=== PATIENT | female | born 1955 | race Caucasian/White ===

== ENCOUNTER 2020-10-30 09:37 | Outpatient (REF) | payer MEDICARE, OTHER, SELFPAY ==
[2020-10-30 12:06] LABS: Glucose Urine UA NEG (NEG); Leukocyte Esterase Urine TRACE (NEG); Nitrite Urine NEG (NEG); Specific Gravity - Urine <= 1.005 (1.005-1.025); Urine Blood TRACE (NEG); Urine Ketones NEG (NEG); Urine Protein NEG (NEG-TRACE)
[2020-10-30 12:08] LABS: Appearance Urine CLEAR; Color Urine YELLOW
[2020-10-30 12:21] LABS: Mucus Urine TRACE /LPF; RBC Urine 0-2 /HPF (0); Squamous Epithelial Cell Urine TRACE /LPF; WBC Urine 0-2 /HPF (0-4)
[2020-10-30 12:25] LABS: Hematocrit 40.5 % (37-47); Hemoglobin 13.5 g/dl (12.0-16.0); Mean Corpuscular HGB Conc 33.3 g/dl (31.0-35.0); Mean Corpuscular Hemoglobin 31.5 pg (27.0-33.0); Mean Corpuscular Volume 94.6 fL (80-98); Mean Platelet Volume 10.7 fL (9.4-12.3); Platelet Count 221 X10*3/uL (160-400); Red Blood Count 4.28 X10*6/uL (4.20-5.50); Red Cell Distribution Width 11.9 % (11.0-16.0); White Blood Count 7.7 X10*3/uL (4.8-10.8)
[2020-10-30 12:27] LABS: Alanine Aminotransferase 14 U/L (0-31); Albumin Level 4.3 g/dL (3.5-5.0); Alkaline Phosphatase 66 U/L (39-117); Anion Gap 14 (12-20); Aspartate Amino Transferase 19 U/L (5-31); Bilirubin Total 0.8 mg/dL (0.0-1.0); Blood Urea Nitrogen 23 mg/dL (9-16); Calcium 8.9 mg/dL (8.4-10.2); Carbon Dioxide 27 mmol/L (22-29); Chloride 97 mmol/L (96-108); Cholesterol 236 mg/dL; Estimated Glomerular Filt Rate 47; Glucose Fasting 95 mg/dL (60-99); HDL Cholesterol 65 mg/dL; LDL Cholesterol Calculated 152 mg/dl; Potassium 3.9 mmol/l (3.3-5.1); Sodium 134 mmol/L (135-145); Total Protein 7.1 g/dL (6.5-8.0); Triglycerides 98 mg/dL
[2020-10-30 12:49] LABS: Thyroid Stimulating Hormone 3.09 uIU/mL (0.32-4.0)
== END 2020-10-30 09:38 | disposition home or self-care (01) ==
LOC: HO.HMGCLDS 09:37
PROVIDERS: PCP Internal Medicine; Visit Provider Internal Medicine
DX: M79.672 Pain in left foot (principal)
CPT/HCPCS: 36415; 80053; 80061; 81001; 81003; 84443; 85027

== ENCOUNTER 2021-02-28 12:57 | Outpatient (REF) | payer MEDICARE, OTHER, SELFPAY ==
--- NOTE | ~2021-02-28 | US_ITS ---
EXAMINATION: US EXTRACRANIAL CAROTID DUPLEX, BILATERAL CLINICAL INFORMATION: Dizziness COMPARISON: None TECHNIQUE: Real-time ultrasound and Doppler techniques (integrating B-mode 2-D vascular images, Doppler spectral analysis and color-flow Doppler imaging) were utilized to interrogate the extracranial carotid arteries, the vertebral arteries and proximal subclavian arteries bilaterally. The degree of stenosis is determined by criteria similar to NASCET. FINDINGS: Right Side: 1. There is minimal calcified atherosclerotic plaque seen in the bifurcation/proximal ICA region. 2. The common carotid artery PSV proximally is 99 cm/s and distally 89 cm/s. 3. The proximal internal carotid artery velocities are 68 cm/s systolic and 21 cm/s diastolic. 4. The proximal external carotid artery PSV is 87 cm/s. 5. The vertebral artery shows antegrade flow. 6. The subclavian artery waveforms are normal. Left Side: 1. There is minimal atherosclerotic plaque seen in the bifurcation/proximal ICA region. 2. The common carotid artery PSV proximally is 86 cm/s and distally 82 cm/s. 3. The proximal internal carotid artery velocities are 64 cm/s systolic and 19 cm/s diastolic. 4. The proximal external carotid artery PSV is 91 cm/s. 5. The vertebral artery shows antegrade flow. 6. The subclavian artery waveforms are normal. US/US carotid duplex BI IMPRESSION: 1. RIGHT: Minimal, non-hemodynamically significant stenosis of the proximal right internal carotid artery corresponding to a 0-49% stenosis by velocity criteria. 2. LEFT: Minimal, non-hemodynamically significant stenosis of the proximal left internal carotid artery corresponding to a 0-49% stenosis by velocity criteria.
== END 2021-02-28 12:58 | disposition home or self-care (01) ==
LOC: HO.HMGCX 12:57
PROVIDERS: Visit Provider Internal Medicine
DX: R09.89 Other specified symptoms and signs involving the circulatory and respiratory systems (principal); R42 Dizziness and giddiness
CPT/HCPCS: 93880

== ENCOUNTER 2022-03-04 10:30 | Outpatient (REF) | payer MEDICARE, OTHER, SELFPAY ==
[2022-03-04 11:41] LABS: Hematocrit 42.8 % (37.0-47.0); Hemoglobin 13.8 g/dl (12.0-16.0); Mean Corpuscular HGB Conc 32.2 g/dl (31.0-35.0); Mean Corpuscular Hemoglobin 30.9 pg (27.0-33.0); Mean Corpuscular Volume 95.7 fL (80.0-98.0); Mean Platelet Volume 10.6 fL (9.4-12.3); Platelet Count 229 X10*3/uL (160-400); Red Blood Count 4.47 X10*6/uL (4.20-5.50); White Blood Count 7.1 X10*3/uL (4.8-10.8)
[2022-03-04 12:11] LABS: Alanine Aminotransferase 14 U/L (0-31); Albumin Level 4.2 g/dL (3.5-5.0); Alkaline Phosphatase 67 U/L (39-117); Anion Gap 11 (12-20); Aspartate Amino Transferase 20 U/L (5-31); Bilirubin Total 0.6 mg/dL (0.0-1.0); Blood Urea Nitrogen 18 mg/dL (9-16); Calcium 9.4 mg/dL (8.4-10.2); Carbon Dioxide 29 mmol/L (22-29); Chloride 106 mmol/L (96-108); Cholesterol 201 mg/dL; Estimated Glomerular Filt Rate 41; Glucose Fasting 108 mg/dL (60-99); HDL Cholesterol 56 mg/dL; LDL Cholesterol Calculated 126 mg/dl; Potassium 4.2 mmol/L (3.3-5.1); Sodium 142 mmol/L (135-145); Total Protein 6.7 g/dL (6.5-8.0); Triglycerides 97 mg/dL
[2022-03-04 12:20] LABS: TSH reflex Free T4 2.07 uIU/mL (0.32-4.0); Vitamin D 25-OH Total 43.7 ng/mL (>30)
[2022-03-04 14:07] LABS: Appearance Urine HAZY; Color Urine YELLOW; Glucose Urine UA NEG (NEG); Leukocyte Esterase Urine 1+ (NEG); Nitrite Urine NEG (NEG); PH 5.5 (5.0-8.0); Specific Gravity - Urine 1.025 (1.005-1.025); Urine Blood 3+ (NEG); Urine Ketones NEG (NEG); Urine Protein NEG (NEG-TRACE)
[2022-03-04 14:26] LABS: Amorphous Sediment Urine 2+ /LPF; Bacteria Urine 1+ /LPF; Mucus Urine 1+ /LPF; Squamous Epithelial Cell Urine 3+ /LPF
== END 2022-03-04 10:31 | disposition home or self-care (01) ==
LOC: HO.HMGCLDS 10:30
PROVIDERS: PCP Internal Medicine; Visit Provider Internal Medicine
DX: Z13.89 Encounter for screening for other disorder (principal)
CPT/HCPCS: 36415; 80048; 80053; 80061; 81001; 82306; 84443; 85027

== ENCOUNTER 2022-03-04 11:47 | Outpatient (REF) | payer MEDICARE, OTHER, SELFPAY ==
[2022-03-06 17:01] LABS: HPV mRNA E6/E7 Not Detected (Not Detected)
== END 2022-03-04 11:48 | disposition home or self-care (01) ==
LOC: HO.LAB 11:47
PROVIDERS: Visit Provider Internal Medicine
DX: Z00.00 Encounter for general adult medical examination without abnormal findings (principal); Z12.4 Encounter for screening for malignant neoplasm of cervix; Z11.51 Encounter for screening for human papillomavirus (HPV); I10 Essential (primary) hypertension; E55.9 Vitamin D deficiency, unspecified; E53.8 Deficiency of other specified B group vitamins
CPT/HCPCS: 36415; 80048; 80053; 80061; 81001; 82306; 84443; 85027; 87624; 88142

== ENCOUNTER 2022-03-18 12:26 | Outpatient (REF) | payer MEDICARE, OTHER, SELFPAY ==
[2022-03-18 16:56] LABS: Appearance Urine CLEAR; Color Urine YELLOW; Glucose Urine UA NEG (NEG); Leukocyte Esterase Urine 1+ (NEG); Nitrite Urine NEG (NEG); Specific Gravity - Urine <= 1.005 (1.005-1.025); UACC Culture Trigger YES; Urine Blood NEG (NEG); Urine Ketones NEG (NEG); Urine Protein NEG (NEG-TRACE)
[2022-03-18 17:43] LABS: Bacteria Urine TRACE /LPF; RBC Urine 0-2 /HPF (0); Squamous Epithelial Cell Urine TRACE /LPF; WBC Urine 0-2 /HPF (0-4)
== END 2022-03-18 12:27 | disposition home or self-care (01) ==
LOC: HO.HMGCLDS 12:26
PROVIDERS: PCP Internal Medicine; Visit Provider Internal Medicine
DX: E53.8 Deficiency of other specified B group vitamins (principal); E55.9 Vitamin D deficiency, unspecified; I10 Essential (primary) hypertension
CPT/HCPCS: 81001; 87086

== ENCOUNTER 2022-04-08 09:41 | Outpatient (REF) | payer MEDICARE, OTHER, SELFPAY ==
--- NOTE | ~2022-04-08 | MM_ITS ---
EXAMINATION: BONE DENSITOMETRY CLINICAL INDICATION: Deficiency of other specified B vitamins. COMPARISON: Baseline BD dated 09/30/2018. TECHNIQUE: Using a [employer] Interactive DXA System (software version: 13.1) manufactured by [employer], dual-energy x-ray absorptiometry was performed of the lumbar spine and left hip. The images are of good technical quality. Summary results are attached. FINDINGS: AP SPINE L1-L4: Current: BMD 0.895 g/cm2, Z-score -0.5, T-score -2.4, osteopenia, 0.4% increase from baseline (<5% change is not significant). Baseline: BMD 0.891 g/cm2. LEFT FEMUR, NECK: Current: BMD 0.626 g/cm2, Z-score -1.3, T-score -3.0, osteoporosis. Baseline: BMD 0.626 g/cm2. LEFT FEMUR, TOTAL: Current: BMD 0.693 g/cm2, Z-score -1.0, T-score -2.5, osteoporosis, 1.6% decrease from baseline (<5% change is not significant). Baseline: BMD 0.704 g/cm2. IDENTIFIED RISK FACTORS: Menopause, height loss, osteoporosis. HISTORY OF FRACTURE: None listed. MEDICATIONS: Vitamin D. MM/XR DEXA axial skeleton IMPRESSION: 1. DIAGNOSIS: Osteoporosis based on the lowest T-score value of -3.0 in the femoral neck applying World Health Organization criteria. 2. 10-YEAR FRACTURE RISK PREDICTION, FRAX: According to the guidelines, FRAX calculation should only be performed on patients in the osteopenia bone density category. Therefore, FRAX was not performed on this patient. 3. Treatment Recommendations: NOF guidelines recommend consideration for treatment in postmenopausal women and men age 50 and older presenting with the following: -A hip or vertebral (clinical or morphometric) fracture. -T-score less than or equal to -2.5 at the femoral neck or spine after appropriate evaluation to exclude secondary causes. -Low bone mass at the hip or spine and a 10-year fracture probability by FRAX of greater than or equal to 3% for hip fracture or greater than or equal to 20% for major osteoporotic fracture based on the [place] adapted WHO algorithm. 4. Other Recommendations: All treatment decisions require clinical judgment and consideration of individual patient factors, including patient preferences, comorbidities, previous drug use, risk factors not captured in the FRAX model (e.g. frailty, falls, vitamin D deficiency, increased bone turnover, interval significant decline in bone density) and possible under or overestimation of fracture risk by FRAX. Additional medical evaluation for secondary cause of low bone mineral density may be appropriate. FUTURE SCAN RECOMMENDATION: People with diagnosed cases of osteoporosis or at high risk for fracture should have regular bone mineral density tests. For patients eligible for Medicare, routine testing is allowed once every 2 years. The testing frequency can be increased to one year for patients who have rapidly progressing disease, those who are receiving or discontinuing medical therapy to restore bone mass, or have additional risk factors.
== END 2022-04-08 09:42 | disposition home or self-care (01) ==
LOC: HO.MAMMO 09:41
PROVIDERS: PCP Internal Medicine; Visit Provider Internal Medicine
DX: Z13.820 Encounter for screening for osteoporosis (principal); M81.0 Age-related osteoporosis without current pathological fracture; Z78.0 Asymptomatic menopausal state
CPT/HCPCS: 77080

== ENCOUNTER 2022-04-21 12:05 | Outpatient (REF) | payer MEDICARE, OTHER, SELFPAY ==
[2022-04-21 13:56] LABS: Appearance Urine CLOUDY; Color Urine YELLOW; Glucose Urine UA NEG (NEG); Leukocyte Esterase Urine NEG (NEG); Nitrite Urine NEG (NEG); PH 5.5 (5.0-8.0); Specific Gravity - Urine >= 1.030 (1.005-1.025); Urine Blood NEG (NEG); Urine Ketones NEG (NEG); Urine Protein NEG (NEG-TRACE)
[2022-04-21 14:31] LABS: Vitamin B12 429 pg/mL (200-900)
== END 2022-04-21 12:06 | disposition home or self-care (01) ==
LOC: HO.HMGCLDS 12:05
PROVIDERS: PCP Internal Medicine; Visit Provider Internal Medicine
DX: Z00.00 Encounter for general adult medical examination without abnormal findings (principal); R31.29 Other microscopic hematuria
CPT/HCPCS: 36415; 81003; 82607

== ENCOUNTER 2022-04-25 09:22 | Outpatient (REF) | payer MEDICARE, OTHER, SELFPAY ==
--- NOTE | ~2022-04-25 | CT_ITS ---
EXAMINATION: CT HEAD WITHOUT CONTRAST CLINICAL INFORMATION: Migraine. COMPARISON: None TECHNIQUE: Contiguous axial imaging was performed from the skull base to vertex without intravenous administration of contrast. This CT examination was performed using dose optimization techniques as appropriate, variously including the following: *Automated exposure control *Adjustment of mA and/or kV according to patient size (this includes techniques or standardized protocols for targeted exams where dose is matched to indication/reason for exam; i.e. extremities or head) *Use of iterative reconstruction technique DLP: 632 mGy-cm FINDINGS: There is no evidence of acute intracranial hemorrhage or territorial infarction. No abnormal mass effect or midline shift is seen. Yoder to white matter differentiation is well preserved. No extra-axial fluid collections are identified. The ventricles are normal in size. There is no abnormal attenuation within the brain parenchyma. The osseous structures and soft tissues are normal. The mastoid air cells and visualized portions of the paranasal sinuses are well aerated. CT/CT head/brain wo con IMPRESSION: No acute intracranial process seen.
== END 2022-04-25 09:23 | disposition home or self-care (01) ==
LOC: HO.CT 09:22
PROVIDERS: Visit Provider Internal Medicine
DX: G43.909 Migraine, unspecified, not intractable, without status migrainosus (principal)
CPT/HCPCS: 70450

== ENCOUNTER 2022-08-07 13:23 | Outpatient (REF) | payer MEDICARE, OTHER, SELFPAY ==
[2022-08-07 17:05] LABS: Anion Gap 15 (12-20); Blood Urea Nitrogen 20 mg/dL (9-16); Carbon Dioxide 29 mmol/L (22-29); Chloride 102 mmol/L (96-108); Estimated Glomerular Filt Rate 44; Glucose Random 107 mg/dL (60-115); Sodium 142 mmol/L (135-145)
[2022-08-07 17:22] LABS: Vitamin D 25-OH Total 72.8 ng/mL (>30)
== END 2022-08-07 13:24 | disposition home or self-care (01) ==
LOC: HO.HMGCLDS 13:23
PROVIDERS: PCP Internal Medicine; Visit Provider Internal Medicine
DX: N18.30 Chronic kidney disease, stage 3 unspecified (principal); E55.9 Vitamin D deficiency, unspecified
CPT/HCPCS: 36415; 80048; 82306

== ENCOUNTER 2022-10-25 13:12 | Outpatient (REF) | payer MEDICARE, SELFPAY ==
[2022-10-25 13:24] LABS: Appearance Urine Clear; Color Urine Yellow; Glucose Urine UA Negative (Negative); Leukocyte Esterase Urine Negative (Negative); Nitrite Urine Negative (Negative); PH 5.5 (5.0-9.0); Specific Gravity - Urine <= 1.005 (1.005-1.025); Urine Blood Negative (Negative); Urine Ketones Negative (Negative); Urine Protein Negative (Neg-Trace)
[2022-10-25 14:15] LABS: Influenza A PCR NEGATIVE (Negative); Influenza B PCR NEGATIVE (Negative); Resp Syncy Virus RNA Qual PCR NEGATIVE (Negative); SARS COV2 PCR INHOUSE NEGATIVE (Negative)
== END 2022-10-25 13:13 | disposition home or self-care (01) ==
LOC: HO.LNP 13:12
PROVIDERS: Visit Provider Physician Assistant Medical
DX: R30.0 Dysuria (principal); R05.9 Cough, unspecified; Z20.822 Contact with and (suspected) exposure to COVID-19
CPT/HCPCS: 0241U; 81003

== ENCOUNTER 2023-01-15 13:57 | Outpatient (REF) | payer MEDICARE, OTHER, SELFPAY | END 2023-01-15 13:58 | disposition home or self-care (01) | LOC: HO.LNP 13:57 | PROVIDERS: Visit Provider Internal Medicine | DX: N30.90 Cystitis, unspecified without hematuria (principal) | CPT/HCPCS: 87086; 87088; 87186 ==

== ENCOUNTER 2023-03-03 08:08 | Outpatient (REF) | payer MEDICARE, OTHER, SELFPAY ==
[2023-03-03 11:30] LABS: MANUAL DIFF FLAG NO
[2023-03-03 11:58] LABS: Basophils Percent Auto 0.9 % (0-2); Eosinophils Absolute Auto 0.2 X10*3/uL (0.0-0.4); Eosinophils Percent Auto 4.4 % (0-4); Hematocrit 40.3 % (37.0-47.0); Hemoglobin 13.3 g/dl (12.0-16.0); Imm Gran Abs Auto 0.01 X10*3/uL (0.00-0.03); Imm Gran Pct Auto 0.2 % (0.0-0.4); Lymphocytes Absolute Auto 1.5 X10*3/uL (1.2-4.9); Lymphocytes Percent Auto 32.5 % (20-40); Mean Corpuscular Volume 93.9 fL (80.0-98.0); Mean Platelet Volume 11.2 fL (9.4-12.3); Monocytes Absolute Auto 0.6 X10*3/uL (0.1-1.2); Monocytes Percent Auto 12.4 % (2-11); Neutrophils Absolute Auto 2.3 x10*3/uL (2.0-8.3); Neutrophils Percent Auto 49.6 % (45-73); Platelet Count 218 X10*3/uL (160-400); Red Blood Count 4.29 X10*6/uL (4.20-5.50); Red Cell Distribution Width 11.9 % (11.0-16.0); White Blood Count 4.6 X10*3/uL (4.8-10.8)
[2023-03-03 12:52] LABS: Alanine Aminotransferase 10 U/L (0-31); Albumin Level 3.9 g/dL (3.5-5.0); Alkaline Phosphatase 57 U/L (39-117); Anion Gap 14 (12-20); Aspartate Amino Transferase 17 U/L (5-31); Bilirubin Total 0.7 mg/dL (0.0-1.0); Blood Urea Nitrogen 21 mg/dL (9-16); Calcium 9.3 mg/dL (8.4-10.2); Carbon Dioxide 25 mmol/L (22-29); Chloride 107 mmol/L (96-108); Cholesterol 196 mg/dL; Estimated Glomerular Filt Rate 42; Glucose Random 109 mg/dL (60-115); HDL Cholesterol 50 mg/dL; LDL Cholesterol Calculated 129 mg/dl; Potassium 3.8 mmol/L (3.3-5.1); Sodium 142 mmol/L (135-145); TSH reflex Free T4 2.31 uIU/mL (0.32-4.0); Total Protein 6.2 g/dL (6.5-8.0); Triglycerides 89 mg/dL; Vitamin D 25-OH Total 59.1 ng/mL (>30)
== END 2023-03-03 08:09 | disposition home or self-care (01) ==
LOC: HO.HMGCLDS 08:08
PROVIDERS: PCP Internal Medicine; Visit Provider Internal Medicine
DX: I12.9 Hypertensive chronic kidney disease with stage 1 through stage 4 chronic kidney disease, or unspecified chronic kidney disease (principal); N18.30 Chronic kidney disease, stage 3 unspecified; E53.8 Deficiency of other specified B group vitamins; E55.9 Vitamin D deficiency, unspecified
CPT/HCPCS: 36415; 80053; 80061; 82306; 84443; 85025

== ENCOUNTER 2023-03-23 13:24 | Emergency (ER) | payer MEDICARE, OTHER, SELFPAY | END 2023-03-23 19:42 | disposition left against medical advice (07) | PROVIDERS: Emergency Provider Emergency Medicine; PCP Internal Medicine | DX: R10.9 Unspecified abdominal pain (principal) ==

== ENCOUNTER 2023-04-14 10:19 | Outpatient (REF) | payer MEDICARE, OTHER, SELFPAY ==
--- NOTE | ~2023-04-14 | XR_ITS ---
EXAMINATION: XR KNEE, RIGHT CLINICAL INFORMATION: Pain COMPARISON: None available. TECHNIQUE: Four views of the right knee. FINDINGS: Bones and soft tissues are normal. No fracture or joint effusion. Alignment is anatomic. Joint spaces are well maintained. No abnormal soft tissue calcification. XR/XR knee RT 2V IMPRESSION: Unremarkable right knee exam
[2023-04-14 12:29] LABS: Vitamin B12 364 pg/mL (200-900)
== END 2023-04-14 10:20 | disposition home or self-care (01) ==
LOC: HO.HMGCX 10:19
PROVIDERS: PCP Internal Medicine; Visit Provider Internal Medicine
DX: R20.2 Paresthesia of skin (principal); M25.561 Pain in right knee
CPT/HCPCS: 36415; 73560; 82607

== ENCOUNTER 2023-05-06 08:32 | Outpatient (REF) | payer MEDICARE, OTHER, SELFPAY ==
[2023-05-06 11:46] LABS: Alanine Aminotransferase 13 U/L (0-31); Albumin Level 4.1 g/dL (3.5-5.0); Alkaline Phosphatase 66 U/L (39-117); Anion Gap 11 (12-20); Aspartate Amino Transferase 17 U/L (5-31); Blood Urea Nitrogen 24 mg/dL (9-16); Calcium 9.5 mg/dL (8.4-10.2); Carbon Dioxide 29 mmol/L (22-29); Chloride 104 mmol/L (96-108); Estimated Glomerular Filt Rate 46; Glucose Fasting 105 mg/dL (60-99); Phosphorus 3.5 mg/dL (2.7-4.5); Potassium 4.2 mmol/L (3.3-5.1); Sodium 140 mmol/L (135-145); Total Protein 6.6 g/dL (6.5-8.0)
== END 2023-05-06 08:33 | disposition home or self-care (01) ==
LOC: HO.HMGCLDS 08:32
PROVIDERS: PCP Internal Medicine; Visit Provider Internal Medicine
DX: I12.9 Hypertensive chronic kidney disease with stage 1 through stage 4 chronic kidney disease, or unspecified chronic kidney disease (principal); N18.30 Chronic kidney disease, stage 3 unspecified; E53.8 Deficiency of other specified B group vitamins; E55.9 Vitamin D deficiency, unspecified
CPT/HCPCS: 36415; 80053; 84100

== ENCOUNTER 2023-09-23 13:37 | Outpatient (AMB) | payer MEDICARE, OTHER, SELFPAY ==
[2023-09-23 14:12] VITALS: BP 130/70; PULSE 97; TEMP 36.5; O2SAT 97; BMI 23.0
--- NOTE | 2023-09-23 14:12 | AM.OFFWIN_ITS ---
Intake Vital Signs 09/23/23 14:12 Height 5 ft 4 in Weight 134 lb BMI 23.0 BP 130/70 Blood Pressure Location Rt brachial Position Sitting Pulse 97 Pulse Source Pulse Oximeter Temp 97.7 F Temp Source Temporal Artery Scan Pulse Oximetry (%) 97 Oxygen Delivery Method Room Air Intake Visit Reasons: EST/stomach pain X 5 weeks(sosa) Intake Note: pt is here for c/o stomach pain for 5 weeks Patient Tobacco Use Status: Never used Tobacco Allergies timolol [TIMOLOL] Allergy (Intermediate, Verified 09/23/23 14:13) HAND AND FEET TINGLING, red itchy eyes brimonidine [From ALPHAGAN P] Allergy (Mild, Verified 09/23/23 14:13) REDNESS AND DRYNESS brinzolamide [From AZOPT] Allergy (Mild, Verified 09/23/23 14:13) REDNESS AND DRYNESS dorzolamide [From COSOPT] Allergy (Mild, Verified 09/23/23 14:13) REDNESS AND DRYNESS latanoprost [From XALATAN] Allergy (Mild, Verified 09/23/23 14:13) REDNESS AND DRYNESS paroxetine Allergy (Unknown, Verified 09/23/23 14:13) sweating Do you need a note to return to daycare/school/sports/work: Yes HPI EST/stomach pain X 5 weeks(sosa) HPI Details 68 year old [facility]. She reports that back in 04/21 she had an abdominal US ordered by her PCP for r/o gallstones. She did not go to US appt due to an unrelated illness, and reports prior RUQ has mostly resolved. She has however had mild abdominal cramping over the last 5 weeks. She states there is no specific area of the amb cramping, but rather has it randomly in various areas of her abdomen. She denies association with eating. She denies change in medications, diet, or any habits. She denies any fever, chills, nausea, vomiting, diarrhea, constipation, blood/mucous in stool. She denies any tenderness to palpation of abdomen. Recently, she contacted PCP to have US rescheduled. This was re-ordered by Dr. Aguilar, however patient as not been called by US department yet to schedule imaging. [facility] Medical History Microscopic hematuria Annual physical exam Vitamin B 12 deficiency Vitamin D deficiency Lightheadedness Bilateral carotid bruits Cataract CKD (chronic kidney disease), stage III Breast CA Osteoporosis IBS (irritable bowel syndrome) HTN (hypertension) Surgical History H/O colonoscopy S/P lumpectomy of breast Family History Father Glaucoma HTN (hypertension) Mother HTN (hypertension) Dementia Diabetes mellitus Sister No problems noted. Sister No problems noted. Son No problems noted. Daughter No problems noted. Social History Housing: House Alcohol intake: never Patient Tobacco Use Status: Never used Tobacco Second Hand Smoke Exposure: Yes Current occupational status: retired Cognitive needs: No Hearing needs: No Vision needs: Yes Review of Systems Const All systems reviewed & are unremarkable except as noted in HPI and below Physical Exam Vital Signs: Last Vital Signs Temp 97.7 F 09/23/23 14:12 Pulse 97 09/23/23 14:12 BP 130/70 09/23/23 14:12 Pulse Ox 97 09/23/23 14:12 Oxygen Delivery Method Room Air 09/23/23 14:12 BMI result Body Mass Index 23.0 Const General: cooperative, healthy appearing, comfortable and no acute distress Neck Neck: Yes no lymphadenopathy Resp Effort & Inspection: normal respiratory effort and able to speak in complete sentences Auscultation: clear to auscultation bilaterally Cardio Jugular venous distension: no JVD Palpation: normal PMI Rate: regular rate Rhythm: regular rhythm GI Other: no guarding, no tenderness to palpation, no rebound tenderness, normoactive bowel sounds x4 quads. Inspection: Yes normal to inspection Palpation (GI): Soft to palpation and No hepatosplenomegaly present Auscultation: normal bowel sounds Skin General skin exam: no rashes or lesions noted Extrem General: Yes capillary refill normal and Yes no clubbing, cyanosis or edema Psych Appearance: grossly normal Mental Status: mental status grossly normal Speech and movement: Normal speech and movement present Assessment & Plan Assessment & Plan (1) Abdominal cramping: Code(s): R10.9 - Unspecified abdominal pain Plan: Patient continues to have occasional, random cramping in abdomen, not specific to any quadrant or area of the abdomen. He abdominal exam is normal at this time. It does appear she has an abdominal ultrasound ordered by PCP. I called ultrasound today, and they have not received order yet from the order nuclear reactor operator to book appointment. I informed patient of this. We discussed that in the meantime, prior to her ultrasound, if she develops any increasing pain, cramping, fever, chills, blood or mucus in her stool, she should go to the emergency department. She verbalizes understanding and agrees to plan. Coding Level of Care Code Est Pt Level 3 (17308) Diagnoses Abdominal cramping R10.9
== END 2023-09-23 15:03 | disposition home or self-care (01) ==
PROVIDERS: PCP Internal Medicine; Visit Provider Nurse Practitioner Family
DX: R10.9 Unspecified abdominal pain (principal); N18.30 Chronic kidney disease, stage 3 unspecified
CPT/HCPCS: 99213

== ENCOUNTER 2023-10-14 08:20 | Outpatient (AMB) | payer MEDICARE, OTHER, SELFPAY ==
--- NOTE | 2023-10-14 08:22 | MHC.PC.OV ---
Vital Signs 10/14/23 08:26 Weight 134 lb BP 124/68 Blood Pressure Location Rt brachial Position Sitting Pulse 83 Pulse Source Pulse Oximeter Pulse Oximetry (%) 98 Oxygen Delivery Method Room Air Intake Visit Reasons: 6 month follow up Allergies timolol [TIMOLOL] Allergy (Intermediate, Verified 10/14/23 08:26) HAND AND FEET TINGLING, red itchy eyes brimonidine [From ALPHAGAN P] Allergy (Mild, Verified 10/14/23 08:26) REDNESS AND DRYNESS brinzolamide [From AZOPT] Allergy (Mild, Verified 10/14/23 08:26) REDNESS AND DRYNESS dorzolamide [From COSOPT] Allergy (Mild, Verified 10/14/23 08:26) REDNESS AND DRYNESS latanoprost [From XALATAN] Allergy (Mild, Verified 10/14/23 08:26) REDNESS AND DRYNESS paroxetine Allergy (Unknown, Verified 10/14/23 08:26) sweating Medication List - Last Reconciled 10/14/23 by Delores Aguilar MD latanoprost 0.005% 1 drp ophthalmic (eye) BEDTIME losartan 50 mg PO DAILY Tobacco use date assessed: 10/14/23 HPI 6 month follow up HPI Details Pt presents for f/u HTN, stable on Losartan. Pt c/o chronic R knee pain worse when walking and had normal XR. Patient reports chronic abdominal discomfort on and off not related to diet or change in the body position. Patient denies any change in bowel habits. She is waiting to have an abdominal ultrasound scheduled [facility] Medical History (Updated 10/14/23 @ 08:57 by Delores Aguilar MD) Knee pain, right Microscopic hematuria Annual physical exam Vitamin B 12 deficiency Vitamin D deficiency Lightheadedness Bilateral carotid bruits Cataract CKD (chronic kidney disease), stage III Breast CA Osteoporosis IBS (irritable bowel syndrome) HTN (hypertension) Surgical History (Updated 10/14/23 @ 08:58 by Delores Aguilar MD) H/O colonoscopy S/P lumpectomy of breast Family History Father Glaucoma HTN (hypertension) Mother HTN (hypertension) Dementia Diabetes mellitus Sister No problems noted. Sister No problems noted. Son No problems noted. Daughter No problems noted. Social History Housing: House Alcohol intake: never Patient Tobacco Use Status: Never used Tobacco Second Hand Smoke Exposure: Yes Current occupational status: retired Cognitive needs: No Hearing needs: No Vision needs: Yes Questionnaire Thrive Questionnaire Date Thrive assessed: 06/24/21 Review of Systems Const All systems reviewed & are unremarkable except as noted in HPI and below Reports no additional complaints Eyes Reports no additional complaints ENT Reports no additional complaints Card Reports no additional complaints Resp Reports no additional complaints GI Reports no additional complaints Reports no additional complaints Skin/Breast Reports system reviewed and no additional complaints, except as documented Physical exam (Primary Care) Vital Signs: Last Vital Signs Pulse 83 10/14/23 08:26 BP 124/68 10/14/23 08:26 Pulse Ox 98 10/14/23 08:26 Oxygen Delivery Method Room Air 10/14/23 08:26 Tobacco/Smoking Status: Tobacco use Status Tobacco use date assessed 10/14/23 10/14/23 08:28 Patient Tobacco Use Status Never used Tobacco 10/14/23 08:25 Thrive Assessment: Date of Thrive Assessment Date Thrive assessed 06/24/21 10/14/23 08:25 Const General: no acute distress HENMT Head: Yes normal to inspection Ears: hearing grossly normal bilaterally Face and sinus: Yes normal facial exam Mouth: Normal oral and palatal mucosa present Eyes General: appearance normal, both eyes and all related structures Neck Neck: Yes no lymphadenopathy and Yes supple Resp Effort & Inspection: normal respiratory effort Auscultation: clear to auscultation bilaterally Cardio Rhythm: regular rhythm Heart sounds: S1 normal heart sound present and S2 normal heart sound present GI Inspection: Yes normal to inspection Palpation (GI): Soft to palpation Percussion: Yes normal to percussion Auscultation: normal bowel sounds Assessment and Plan Assessment & Plan (1) Knee pain, right: Comment: XR normal Code(s): M25.561 - Pain in right knee Plan: refer to PT (2) CKD (chronic kidney disease), stage III: Code(s): N18.30 - Chronic kidney disease, stage 3 unspecified Plan: avoid NSAIDs , (3) Vitamin D deficiency: Code(s): E55.9 - Vitamin D deficiency, unspecified (4) HTN (hypertension): Code(s): I10 - Essential (primary) hypertension Plan: cont [place] (5) Right upper quadrant abdominal pain: Code(s): R10.11 - Right upper quadrant pain Plan: waiting for abd US (6) H/O colonoscopy: Comment: 04/[address] Cruz, 07/21 Dr. Walters, recheck in 5 yrs Code(s): Z98.890 - Other specified postprocedural states Orders: Orders Comprehensive [place]. Panel Fast Today E55.9 - Vitamin D deficiency, unspecified, I10 - Essential (primary) hypertension, N18.30 - Chronic kidney disease, stage 3 unspecified Lipid Panel Today E55.9 - Vitamin D deficiency, unspecified, I10 - Essential (primary) hypertension, N18.30 - Chronic kidney disease, stage 3 unspecified TSH reflex Free T4 Today E55.9 - Vitamin D deficiency, unspecified, I10 - Essential (primary) hypertension, N18.30 - Chronic kidney disease, stage 3 unspecified PT Evaluation and Treatment Today M25.561 - Pain in right knee Complete Blood Count Auto Diff Today E55.9 - Vitamin D deficiency, unspecified, I10 - Essential (primary) hypertension, N18.30 - Chronic kidney disease, stage 3 unspecified Magnesium Today E55.9 - Vitamin D deficiency, unspecified, I10 - Essential (primary) hypertension, N18.30 - Chronic kidney disease, stage 3 unspecified Coding Level of Care Code Est Pt Level 4 (65990) Diagnoses Knee pain, right M25.561 CKD (chronic kidney disease), stage III N18.30 Vitamin D deficiency E55.9 HTN (hypertension) I10 Right upper quadrant abdominal pain R10.11 H/O colonoscopy Z98.890
[2023-10-14 08:26] VITALS: BP 124/68; PULSE 83; O2SAT 98
== END 2023-10-14 09:03 | disposition home or self-care (01) ==
PROVIDERS: Visit Provider Internal Medicine
DX: M25.561 Pain in right knee (principal); I12.9 Hypertensive chronic kidney disease with stage 1 through stage 4 chronic kidney disease, or unspecified chronic kidney disease; N18.30 Chronic kidney disease, stage 3 unspecified; E55.9 Vitamin D deficiency, unspecified; R10.11 Right upper quadrant pain; Z98.890 Other specified postprocedural states
CPT/HCPCS: 99214

== ENCOUNTER 2023-10-14 09:04 | Outpatient (REF) | payer MEDICARE, OTHER, SELFPAY ==
[2023-10-14 11:14] LABS: MANUAL DIFF FLAG NO
[2023-10-14 11:47] LABS: Basophils Absolute Auto 0.1 X10*3/uL (0.0-0.2); Basophils Percent Auto 1.2 % (0-2); Eosinophils Absolute Auto 0.1 X10*3/uL (0.0-0.4); Eosinophils Percent Auto 2.3 % (0-4); Hematocrit 40.5 % (37.0-47.0); Hemoglobin 13.2 g/dl (12.0-16.0); Imm Gran Abs Auto 0.02 X10*3/uL (0.00-0.03); Imm Gran Pct Auto 0.3 % (0.0-0.4); Lymphocytes Absolute Auto 1.3 X10*3/uL (1.2-4.9); Lymphocytes Percent Auto 21.1 % (20-40); Mean Corpuscular HGB Conc 32.6 g/dl (31.0-35.0); Mean Corpuscular Hemoglobin 31.1 pg (27.0-33.0); Mean Corpuscular Volume 95.3 fL (80.0-98.0); Mean Platelet Volume 10.6 fL (9.4-12.3); Monocytes Absolute Auto 0.7 X10*3/uL (0.1-1.2); Monocytes Percent Auto 11.1 % (2-11); Neutrophils Absolute Auto 3.8 x10*3/uL (2.0-8.3); Platelet Count 247 X10*3/uL (160-400); Red Blood Count 4.25 X10*6/uL (4.20-5.50); Red Cell Distribution Width 11.8 % (11.0-16.0)
[2023-10-14 11:49] LABS: Alanine Aminotransferase 41 U/L (0-31); Albumin Level 4.1 g/dL (3.5-5.0); Alkaline Phosphatase 60 U/L (39-117); Anion Gap 10 (12-20); Aspartate Amino Transferase 33 U/L (5-31); Blood Urea Nitrogen 22 mg/dL (9-16); Calcium 9.1 mg/dL (8.4-10.2); Carbon Dioxide 27 mmol/L (22-29); Chloride 108 mmol/L (96-108); Cholesterol 214 mg/dL (<200); Estimated Glomerular Filt Rate 43; Glucose Fasting 113 mg/dL (60-99); HDL Cholesterol 55 mg/dL (>40); LDL Cholesterol Calculated 141 mg/dL (<100); Magnesium 2.1 mg/dL (1.6-2.6); Potassium 4.1 mmol/L (3.3-5.1); Sodium 141 mmol/L (135-145); Triglycerides 93 mg/dL (<150)
[2023-10-14 12:09] LABS: TSH reflex Free T4 2.43 uIU/mL (0.32-4.0)
== END 2023-10-14 09:05 | disposition home or self-care (01) ==
LOC: HO.HMGCLDS 09:04
PROVIDERS: PCP Internal Medicine; Visit Provider Internal Medicine
DX: I12.9 Hypertensive chronic kidney disease with stage 1 through stage 4 chronic kidney disease, or unspecified chronic kidney disease (principal); N18.30 Chronic kidney disease, stage 3 unspecified; E55.9 Vitamin D deficiency, unspecified
CPT/HCPCS: 36415; 80053; 80061; 83735; 84443; 85025

== ENCOUNTER 2023-10-21 09:48 | Outpatient (REF) | payer MEDICARE, OTHER, SELFPAY ==
--- NOTE | ~2023-10-21 | US_ITS ---
EXAMINATION: US ABDOMEN LIMITED CLINICAL INFORMATION: Right upper quadrant pain. Rule out gallstones. COMPARISON: Ultrasound abdomen complete 01/06/2020. TECHNIQUE: Real-time imaging of the right upper quadrant abdominal viscera. FINDINGS: PANCREAS: Normal. LIVER: Normal. The liver is normal in size. The liver contour is normal. Parenchymal echogenicity is normal. No focal hepatic lesion. There is no intrahepatic biliary duct dilatation seen. GALLBLADDER: Normal. The gallbladder is physiologically distended without evidence of stones, sludge, polyps, wall thickening or pericholecystic fluid. COMMON BILE DUCT: Normal in caliber measuring 0.4 cm in diameter. RIGHT KIDNEY: The right kidney is grossly abnormal in appearance with increased echogenicity and speckled calcifications seen throughout. Some shadow consistent with nephrolithiasis. Appearances are unchanged when compared to the exam from 01/06/2020. At that time, the left kidney was examined as well and appeared similar. No hydronephrosis. No focal renal parenchymal lesions. The kidney measures 9.3 cm in maximum dimension. FREE FLUID: None. US/US abdomen limited IMPRESSION: 1. No gallstones are seen. 2. Grossly abnormal right kidney as described above.
== END 2023-10-21 09:49 | disposition home or self-care (01) ==
LOC: HO.HMGCX 09:48
PROVIDERS: PCP Internal Medicine; Visit Provider Internal Medicine
DX: R10.11 Right upper quadrant pain (principal)
CPT/HCPCS: 76705

== ENCOUNTER 2023-11-05 09:00 | Outpatient (RCR) | payer MEDICARE, OTHER, SELFPAY ==
--- NOTE | 2023-10-27 10:46 | MHC.PT.EP ---
[facility] [place] [facility] [place] [facility] [place] [facility] [address] [phone] F: [phone] F: [phone] F: [phone] F: [phone] Physical Therapy Plan of Care Date of Evaluation: 10/27/23 Date of Surgery: Diagnosis: This is a 68 yo female presenting to skilled PT pain in R knee. Assessment: Patient reporting R knee pain that has been on and off since high school. Today her pain is located medially, described as a deep pain. Pain is worse with weightbearing however is at rest as well. When probed she did report R side low back pain as well however does not feel like these two are related. She has not tried PT or used an pain management, braces or other conservative tx's. She wants to return to cardio and walking for her general health however pain is limiting her. Assessment reveals pain that ranges from up to a 6/10 at the worst. Patient demos decreased hip and gastroc ROM, strength of hips and gastrocs, TTP at pes ans, bursa and anterior lower leg, and impaired posture with forward head and rounded shoulders with increased R knee valgus. Based on functional limitations, impaired QOL and pain tolerance patient is a good candidate for skilled PT 2x/wk for 4wks. Frequency and Duration: The patient will be seen 2x/wk for 4wks Short Term Goals: I in HEP Demo proper quad set without cues from PT Demo good understanding of anatomy and PT POC Improve pain with ambulation to no more than a 4/10 Computed Tomography Technologist Goals: Return to walking routine for exercise without increase in pain Demo proper squat techniques without cues or pain Demo reciprocal gait on stairs without pain ascending and descending Improve pain to no more than a 2/10 at the worst Treatment Plan: Modalities to reduce pain, spasms and effusion. Manual therapy to restore motion and function. Therapeutic exercise to improve strength and flexibility. Neuromuscular re-education for posture and balance. Therapeutic activities to return to functional activities of daily living. Electronically signed by: Miriam Huitron PT Please sign and return to therapist. Thank you for your referral.
--- NOTE | 2023-11-26 08:55 | MHC.PT.DC ---
[facility] [place] [facility] [place] [facility] [place] [facility] [address] Coby Hernandez [address] [phone] F: [phone] F: [phone] F: [phone] F: [phone] Physical Therapy Discharge Report Diagnosis: This is a 68 yo female presenting to skilled PT pain in R knee. Date of Surgery: Date of Evaluation: 10/27/23 Date of Discharge: 11/26/23 Treatments to Date: 4 Cancellations to Date: 0 No Shows to Date: 0 Discharge Status: Patient Elected to Stop Discharge Summary: Per last tx note 11/05: Patient with improved pain since eval, after all of the ther-ex we did today she reported no pain. Decreased pain noted at medial keep except for a small area at the medial inferior patella. Performed increased hamstring stretching today, no cramping noted with bridges while legs were on bolster. Continued KT, plan to educate how to perform in the next few sessions for management at home. After this visit, patient had a new incident and cancelled all of her remaining visits. Electronically signed by: Miriam Huitron PT Please sign and return to therapist. Thank you for your referral.
== END 2023-11-26 08:55 | disposition home or self-care (01) ==
LOC: HO.PTCHIC 09:00
PROVIDERS: PCP Internal Medicine; Visit Provider Internal Medicine
DX: M25.561 Pain in right knee (principal)
CPT/HCPCS: 97110; 97112; 97140; 97161

== ENCOUNTER 2023-11-11 09:10 | Outpatient (AMB) | payer MEDICARE, OTHER, SELFPAY ==
--- NOTE | 2023-11-11 10:30 | AM.OFFWIN_ITS ---
Intake Vital Signs 11/11/23 10:31 Height 5 ft 4 in Weight 133 lb BMI 22.8 BP 138/70 Blood Pressure Location Rt brachial Position Sitting Pulse 100 Pulse Source Pulse Oximeter Temp 97.4 F Temp Source Temporal Artery Scan Pulse Oximetry (%) 97 Oxygen Delivery Method Room Air Intake Visit Reasons: Ep, left side hip pain Intake Note: Pt is here c/o left side hip pain. Pt states no falls or injuries. Patient Tobacco Use Status: Never used Tobacco Allergies timolol [TIMOLOL] Allergy (Intermediate, Verified 11/11/23 11:01) HAND AND FEET TINGLING, red itchy eyes brimonidine [From ALPHAGAN P] Allergy (Mild, Verified 11/11/23 11:01) REDNESS AND DRYNESS brinzolamide [From AZOPT] Allergy (Mild, Verified 11/11/23 11:01) REDNESS AND DRYNESS dorzolamide [From COSOPT] Allergy (Mild, Verified 11/11/23 11:01) REDNESS AND DRYNESS latanoprost [From XALATAN] Allergy (Mild, Verified 11/11/23 11:01) REDNESS AND DRYNESS paroxetine Allergy (Unknown, Verified 11/11/23 11:01) sweating Medication List - Last Reconciled 11/11/23 by Katelyn Handley, [facility]- latanoprost 0.005% 1 drp ophthalmic (eye) BEDTIME losartan 50 mg PO DAILY Do you need a note to return to daycare/school/sports/work: No HPI HPI Comments History of Present Illness Details here today w c/o pain in left hip that started 3 days agp. lifted left leg to clip toe nails that evening hip started hurting the next AM it felt better then turned to brain picker remote and the pain occurred again worse since onset leaning forward, sitting to standing and standing to sitting increases/causes pain has mild pain when sitting still denies fever, chills, accident or falls + osteoporosis& worries about fracture. tried ibu 600 mg this AM w very little relief also rolled over a few nights ago and felt something pop under right arm/axilla, when she rolled over she felt this go into right posterior rib cage area. she reports getting a massage on thursday and the therapist making a rec to have this checked out she is breathing fine. no hemoptysis or chest pain PFSH Medical History (Updated 11/11/23 @ 12:39 by Katelyn Handley, RAFA-) Rib pain on right side Pain in left hip Knee pain, right Microscopic hematuria Annual physical exam Vitamin B 12 deficiency Vitamin D deficiency Lightheadedness Bilateral carotid bruits Cataract CKD (chronic kidney disease), stage III Breast CA Osteoporosis IBS (irritable bowel syndrome) HTN (hypertension) Surgical History (Updated 10/14/23 @ 08:58 by Delores Aguilar MD) H/O colonoscopy S/P lumpectomy of breast Family History Father Glaucoma HTN (hypertension) Mother HTN (hypertension) Dementia Diabetes mellitus Sister No problems noted. Sister No problems noted. Son No problems noted. Daughter No problems noted. Social History Housing: House Alcohol intake: never Patient Tobacco Use Status: Never used Tobacco Second Hand Smoke Exposure: Yes Current occupational status: retired Cognitive needs: No Hearing needs: No Vision needs: Yes Review of Systems Const All systems reviewed & are unremarkable except as noted in HPI and below Physical Exam Vital Signs: Last Vital Signs Temp 97.4 F 11/11/23 10:31 Pulse 100 11/11/23 10:31 BP 138/70 11/11/23 10:31 Pulse Ox 97 11/11/23 10:31 Oxygen Delivery Method Room Air 11/11/23 10:31 BMI result Body Mass Index 22.8 HEENT Other: awake alert NAD PERRLA MMM LS CTAB no obvious rib deformity, no pain w/ palp over lateral, anterior or posterior right rib cage. no retractions or crepitus. Extrem General: Yes capillary refill normal, Yes no joint enlargement, Yes no clubbing, cyanosis or edema and Yes no pedal edema Left lower extremity: hip/thigh Details: tenderness Location: of the hip and abnormal ROM (over greater trochanter, iliac crest) Details: pain with active ROM and pain with passive ROM Assessment & Plan Assessment & Plan (1) Osteoporosis: Comment: DEXA:, 2021 Code(s): M81.0 - Age-related osteoporosis without current pathological fracture Qualifiers: Osteoporosis type: other Presence of current pathological fracture: without current pathological fracture Qualified Code(s): M81.8 - Other osteoporosis without current pathological fracture Plan: . (2) Pain in left hip: Code(s): M25.552 - Pain in left hip Plan: . (3) Left leg pain: Code(s): M79.605 - Pain in left leg Plan: . (4) Rib pain on right side: Code(s): R07.81 - Pleurodynia Plan . Orders: Orders XR hip LT w PEL1V Today M25.552 - Pain in left hip, M79.605 - Pain in left leg, M81.0 - Age-related osteoporosis without current pathological fracture, R07.81 - Pleurodynia XR ribs RT 2V Today M25.552 - Pain in left hip, M79.605 - Pain in left leg, M81.0 - Age-related osteoporosis without current pathological fracture, R07.81 - Pleurodynia Patient Instructions: Xrays today, will have team f/u with results. if hip/pelvis neg and she still has pain may need add'l imaging to r/o hairline fracture, she was made aware of this today. supportive care only at this time until imaging resulted. Coding Level of Care Code Est Pt Level 5 (72377) Diagnoses Other osteoporosis without current pathological fracture M81.8 Osteoporosis type: other Presence of current pathological fracture: without current pathological fracture Pain in left hip M25.552 Left leg pain M79.605 Rib pain on right side R07.81
[2023-11-11 10:31] VITALS: BP 138/70; PULSE 100; TEMP 36.3; O2SAT 97; BMI 22.8
== END 2023-11-11 13:00 | disposition home or self-care (01) ==
PROVIDERS: PCP Internal Medicine; Visit Provider Nurse Practitioner Family
DX: M81.8 Other osteoporosis without current pathological fracture (principal); M25.552 Pain in left hip; M79.605 Pain in left leg; R07.81 Pleurodynia
CPT/HCPCS: 99214; 99215

== ENCOUNTER 2023-11-11 15:13 | Outpatient (REF) | payer MEDICARE, OTHER, SELFPAY ==
--- NOTE | ~2023-11-11 | XR_ITS ---
EXAMINATION: RIGHT RIBS, PELVIS AND LEFT HIP CLINICAL INFORMATION: Pain in left hip with pleurodynia COMPARISON: Chest radiograph 07/19/2020 TECHNIQUE: 3 views right RIBS FINDINGS: The ribs are unremarkable without acute fractures. There is an old healed fracture involving the sixth posterolateral rib. The visualized lungs are unremarkable. The pelvis and hips are unremarkable. XR/XR hip LT w PEL1V IMPRESSION: No evidence of an acute injury.
--- NOTE | ~2023-11-11 | XR_ITS ---
EXAMINATION: RIGHT RIBS, PELVIS AND LEFT HIP CLINICAL INFORMATION: Pain in left hip with pleurodynia COMPARISON: Chest radiograph 07/19/2020 TECHNIQUE: 3 views right RIBS FINDINGS: The ribs are unremarkable without acute fractures. There is an old healed fracture involving the sixth posterolateral rib. The visualized lungs are unremarkable. The pelvis and hips are unremarkable. XR/XR ribs RT 2V IMPRESSION: No evidence of an acute injury.
== END 2023-11-11 15:14 | disposition home or self-care (01) ==
LOC: HO.HMGCX 15:13
PROVIDERS: PCP Internal Medicine; Visit Provider Nurse Practitioner Family
DX: R07.81 Pleurodynia (principal); M79.605 Pain in left leg; M25.552 Pain in left hip; M81.0 Age-related osteoporosis without current pathological fracture
CPT/HCPCS: 71100; 73502

== ENCOUNTER 2023-12-05 09:18 | Outpatient (AMB) | payer MEDICARE, OTHER, SELFPAY ==
[2023-12-05 10:29] VITALS: BP 132/88; PULSE 99; TEMP 36.6; O2SAT 96; BMI 23.5
--- NOTE | 2023-12-05 10:29 | MHC.OFFWIV ---
Intake Vital Signs 12/05/23 10:29 Height 5 ft 4 in Weight 137 lb BMI 23.5 BP 132/88 Blood Pressure Location Lt brachial Position Sitting Pulse 99 Pulse Source Pulse Oximeter Temp 97.9 F Temp Source Oral Pulse Oximetry (%) 96 Intake Visit Reasons: EP, abdominal pain [phone] Intake Note: Pt is here today c/o epigastric pain x1week: no constipation or diarrhea or N/V Patient Tobacco Use Status: Never used Tobacco Allergies timolol [TIMOLOL] Allergy (Intermediate, Verified 12/05/23 10:31) HAND AND FEET TINGLING, red itchy eyes brimonidine [From ALPHAGAN P] Allergy (Mild, Verified 12/05/23 10:31) REDNESS AND DRYNESS brinzolamide [From AZOPT] Allergy (Mild, Verified 12/05/23 10:31) REDNESS AND DRYNESS dorzolamide [From COSOPT] Allergy (Mild, Verified 12/05/23 10:31) REDNESS AND DRYNESS latanoprost [From XALATAN] Allergy (Mild, Verified 12/05/23 10:31) REDNESS AND DRYNESS paroxetine Allergy (Unknown, Verified 12/05/23 10:31) sweating Do you need a note to return to daycare/school/sports/work: No HPI HPI Comments History of Present Illness Details 68-year-old female that presents for abdominal pain. Pain has been present intermittently since August. She had ultrasound ordered by her PCP which noted no resolve. More recently the pain has become constant rated at a 4/10. It is described as a burning sensation. Hours after eating. No specific triggers. No urinary symptoms no fevers or chills [facility] Medical History (Updated 11/11/23 @ 12:39 by Katelyn Handley, RAFA-) Rib pain on right side Pain in left hip Knee pain, right Microscopic hematuria Annual physical exam Vitamin B 12 deficiency Vitamin D deficiency Lightheadedness Bilateral carotid bruits Cataract CKD (chronic kidney disease), stage III Breast CA Osteoporosis IBS (irritable bowel syndrome) HTN (hypertension) Surgical History (Updated 10/14/23 @ 08:58 by Delores Aguilar MD) H/O colonoscopy S/P lumpectomy of breast Family History Father Glaucoma HTN (hypertension) Mother HTN (hypertension) Dementia Diabetes mellitus Sister No problems noted. Sister No problems noted. Son No problems noted. Daughter No problems noted. Social History Housing: House Alcohol intake: never Patient Tobacco Use Status: Never used Tobacco Second Hand Smoke Exposure: Yes Current occupational status: retired Cognitive needs: No Hearing needs: No Vision needs: Yes Review of Systems GI Reports abdominal pain Physical Exam Vital Signs: Last Vital Signs Temp 97.9 F 12/05/23 10:29 Pulse 99 12/05/23 10:29 BP 132/88 12/05/23 10:29 Pulse Ox 96 12/05/23 10:29 BMI result Body Mass Index 23.5 Const General: cooperative, no acute distress and alert Orientation/consciousness: patient oriented x3 Limitations: no limitations HEENT Head: Yes normal to inspection Ears: hearing grossly normal bilaterally and external ears normal General nose exam: Normal external nose present Eyes General: appearance normal, both eyes and all related structures Neck Neck: Yes normal visual inspection Chest Chest palpation & inspection: normal inspection of the chest Resp Effort & Inspection: normal respiratory effort, able to speak in complete sentences and no audible wheezes Cardio Rate: regular rate Rhythm: regular rhythm GI Inspection: Yes normal to inspection Palpation (GI): Soft to palpation and nontender Skin General skin exam: no rashes or lesions noted Neuro General: patient oriented x3 Psych Appearance: grossly normal Mental Status: mental status grossly normal Speech and movement: Normal speech and movement present Affect: normal affect Attitude: cooperative Thought process: Normal thought process present Thought content: Normal thought content present Results AMB Urinalysis, Automated UA Leukoctes 15 Maricruz/uL Last Edit by Tejal Benítez CMA on 12/05/23 11:08 UA Nitrite Negative Last Edit by Tejal Benítez CMA on 12/05/23 11:08 UA Urobilinogen 0.2 mg/dL Last Edit by Tejal Benítez CMA on 12/05/23 11:08 UA Protein 0 mg/dL Last Edit by Tejal Benítez CMA on 12/05/23 11:08 UA pH 6.0 Last Edit by Tejal Benítez CMA on 12/05/23 11:08 UA Blood 0 Sina/uL Last Edit by Tejal Benítez CMA on 12/05/23 11:08 UA Specific [place] 1.015 Last Edit by Tejal Benítez CMA on 12/05/23 11:08 UA Ketone Negative Last Edit by Tejal Benítez CMA on 12/05/23 11:08 UA Bilirubin 0 mg/dL Last Edit by Tejal Benítez CMA on 12/05/23 11:08 UA Glucose 0 mg/dL Last Edit by Tejal Benítez CMA on 12/05/23 11:08 Assessment & Plan Assessment & Plan (1) Abdominal pain: Code(s): R10.9 - Unspecified abdominal pain Qualifiers: Abdominal location: generalized Qualified Code(s): R10.84 - Generalized abdominal pain Plan: VSS. Unclear etiology of patient's abdominal pain at this time. Concern recent UTI versus otherwise versus appendicitis verses gas related pain verses unclear other abdominal pathology. Will order UA. Low suspicion however. Will recommend patient follow-up with PCP for potential GI referral and/or imaging. Offer strict return precautions in warning signs for patient to present to the emergency department. Urinalysis did show positive leukocytes will treat for UTI. Recommend patient follow-up PCP (2) UTI (urinary tract infection): Code(s): N39.0 - Urinary tract infection, site not specified Qualifiers: Hematuria presence: without hematuria Urinary tract infection type: acute cystitis Qualified Code(s): N30.00 - Acute cystitis without hematuria Plan: See above Orders: Orders AMB Urinalysis Automated Today Z13.9 - Encounter for screening, unspecified Medications: New cephalexin 500 mg PO BID 10 caps 0RF 5 days Coding Level of Care Code Est Pt Level 3 (18746) Diagnoses Generalized abdominal pain R10.84 Abdominal location: generalized Acute cystitis without hematuria N30.00 Hematuria presence: without hematuria Urinary tract infection type: acute cystitis
== END 2023-12-05 11:15 | disposition home or self-care (01) ==
PROVIDERS: PCP Internal Medicine; Visit Provider Physician Assistant
DX: R10.84 Generalized abdominal pain (principal); N30.00 Acute cystitis without hematuria
CPT/HCPCS: 81003; 99213

== ENCOUNTER 2023-12-29 14:52 | Emergency (ER) | payer MEDICARE, OTHER, SELFPAY ==
--- NOTE | ~2023-12-29 | CT_ITS ---
EXAMINATION: CT HEAD WITHOUT CONTRAST CLINICAL INFORMATION: Headache. COMPARISON: CT brain 04/25/2022. TECHNIQUE: Contiguous axial imaging was performed from the skull base to vertex without intravenous administration of contrast. This CT examination was performed using dose optimization techniques as appropriate, variously including the following: *Automated exposure control *Adjustment of mA and/or kV according to patient size (this includes techniques or standardized protocols for targeted exams where dose is matched to indication/reason for exam; i.e. extremities or head) *Use of iterative reconstruction technique DLP: 553 mGy-cm FINDINGS: There is no acute intra-axial, extra-axial bleed, masses or midline shift. There is no acute infarction in evolution. There is no edema. The lateral ventricles are asymmetrical but normal size. There is minimal periventricular hypodensity in both cerebral hemispheres without mass effect or edema. Bone windows reveal no calvarial abnormality. There is there is no scalp soft tissue abnormality either. Bilateral paranasal sinuses and mastoid air cells are well-aerated. Incidental finding of foreign body in the left anterior wall optic globe. It is unchanged since previous study 04/25/2022. CT/CT head/brain wo IV con IMPRESSION: No acute intracranial process seen. Left eye metallic foreign body, unchanged to 04/25/2022 exam.
[2023-12-29 15:11] VITALS: BP 188/108; PULSE 86; RESP 16; TEMP 36.1; O2SAT 96; BMI 21.8
--- NOTE | 2023-12-29 15:33 | ED_ITS ---
HPI - General Adult General Chief complaint: Headache Stated complaint: severe headache Time Seen by Provider: 12/29/23 23:34 Source: patient Mode of arrival: ambulatory Limitations: no limitations History of Present Illness HPI narrative: Patient is a 68-year-old female who presents emergency department for evaluation of diffuse bilateral headache with onset 3 days ago. Waxing and waning in intensity, at its initial onset was severe but since then has been described as mild, 3/10 at maximum intensity, and does improve with ibuprofen as well as rest. She has had a couple morning since its onset where it is completely gone but does return as the day proceeds. She states that she came to the emergency department today because she had again an increase with severe pain. She reports that she was bending forward for approximately [address] when she noticed that her headache was becoming severe again. She denies associated dizziness, lightheadedness, vision changes, neck pain, neck stiffness, chest pain, shortness of breath, numbness or tingling of the extremities, bladder bowel dysfunction, weakness. Denies any overt history of migraine headaches or chronic headaches. She does state that she has had similar episodes like this 2 or 3 other times in her life but this was many years ago. She denies any URI symptoms. Related Data Home Medications Medication Instructions Recorded Confirmed latanoprost 0.005 % eye drops 1 drp ophthalmic (eye) BEDTIME 10/14/23 11/11/23 Previous Rx's Medication Instructions Recorded cephalexin 500 mg capsule 500 mg PO BID 5 days #10 caps 12/05/23 losartan 50 mg tablet 50 mg PO DAILY #90 tabs 12/21/23 Allergies Allergy/AdvReac Type Severity Reaction Status Date / Time timolol [TIMOLOL] Allergy Intermediate HAND AND Verified 12/05/23 10:31 FEET TINGLING, red itchy eyes brimonidine [From ALPHAGAN P] Allergy Mild REDNESS Verified 12/05/23 10:31 AND DRYNESS brinzolamide [From AZOPT] Allergy Mild REDNESS Verified 12/05/23 10:31 AND DRYNESS dorzolamide [From COSOPT] Allergy Mild REDNESS Verified 12/05/23 10:31 AND DRYNESS latanoprost [From XALATAN] Allergy Mild REDNESS Verified 12/05/23 10:31 AND DRYNESS paroxetine Allergy Unknown sweating Verified 01/06/24 10:31 lisinopril Allergy Cough Verified 12/29/23 15:11 Review of Systems 2 Review of Systems: Yes all other systems are reviewed and are negative [facility] Past Medical History Attestation statement: The following information was validated with the patient. Source: old records reviewed Medical History Rib pain on right side Pain in left hip Knee pain, right Microscopic hematuria Annual physical exam Vitamin B 12 deficiency Vitamin D deficiency Lightheadedness Bilateral carotid bruits Cataract CKD (chronic kidney disease), stage III Breast CA Osteoporosis IBS (irritable bowel syndrome) HTN (hypertension) Surgical History H/O colonoscopy S/P lumpectomy of breast Family History Family History Father Glaucoma HTN (hypertension) Mother HTN (hypertension) Dementia Diabetes mellitus Sister No problems noted. Sister No problems noted. Son No problems noted. Daughter No problems noted. Social History Social History Housing: House Alcohol intake: never Patient Tobacco Use Status: Never used Tobacco Second Hand Smoke Exposure: Yes Advance Directives: No Advance Directives Information Provided: No Current occupational status: retired Cognitive needs: No Hearing needs: No Vision needs: Yes Physical Exam ED Vital Signs: Vital Signs - 24 hr 12/29/23 15:11 12/29/23 23:40 Temperature 96.9 F 98.8 F Pulse Rate 86 99 Respiratory Rate 16 16 Blood Pressure 188/108 H 160/81 H Pulse Oximetry 96 99 Oxygen Delivery Method Room Air Room Air BMI result Body Mass Index 21.8 Appearance: Alert.?Oriented to person, place and time. No acute distress.?Normal affect. Eyes: Pupils equal, round and reactive to light.? ENT: Pharynx normal.?? Neck: Normal inspection.? Neck supple.?? CVS: Heart sounds normal. Normal heart rate and rhythm.? Pulses normal.?? Respiratory: No respiratory distress.? Lung sounds clear to auscultation bilaterally?? Abdomen: Soft and non-tender. Normoactive bowel sounds. No pulsatile mass.?? Skin: Skin warm and dry.? Normal skin color.? ? Extremities: No lower extremity edema.? No calf ttp? Neuro: Moves all extremities spontaneously. Sensation intact bilaterally. CN II- XII intact. No focal neuro deficits. NIH stroke score 0. Ambulates with normal steady gait. Course Course Course Narrative: RME- 68-year-old female presents for evaluation of on and off headaches for the last 4 days. Plan for labs including ESR and a CT brain. No neuro deficits Medical Decision Making Medical Decision Making MDM Narrative: Patient is a 68-year-old female who presents emergency department for evaluation of headache as per HPI. No focal neurological deficits upon examination. Reviewed labs obtained prior to my assumption of care, CBC is without leukocytosis or anemia, ESR within normal range, BMP reveals slight increase in renal function from baseline BUN 22 creatinine 1.4, I suspect secondary to dehydration, she does admit that she has not been consuming as much water recently as she typically does. Did discuss with patient receiving IV fluids were improvement, however she states that she would like to return home at this time, she feels confident that she can consume water orally and sufficient amounts. States headache at this time is 12/09. CT was obtained which reveals no evidence of acute intracranial abnormality. There are no red flag symptoms, focal deficits, high-risk comorbidities, at this time I do feel that she would be stable for discharge home. Exam is not consistent with meningitis, encephalitis, cervical dissection, GCA Lab Data 12/29/23 18:23 12/29/23 18:23 Labs: Lab Results 12/29/23 Range/Units 18:23 WBC 7.7 (4.8-10.8) X10*3/uL RBC 4.25 (4.20-5.50) X10*6/uL Hgb 13.1 (12.0-16.0) g/dl Hct 39.6 (37.0-47.0) % MCV 93.2 (80.0-98.0) fL MCH 30.8 (27.0-33.0) pg MCHC 33.1 (31.0-35.0) g/dl RDW 11.9 (11.0-16.0) % Plt Count 256 (160-400) X10*3/uL MPV 9.9 (9.4-12.3) fL Immature Gran % (Auto) 0.4 (0.0-0.4) % Neut % (Auto) 62.5 (45-73) % Lymph % (Auto) 24.4 (20-40) % Phelps % (Auto) 10.1 (2-11) % Eos % (Auto) 1.6 (0-4) % Baso % (Auto) 1.0 (0-2) % Lymph # (Auto) 1.9 (1.2-4.9) X10*3/uL Phelps # (Auto) 0.8 (0.1-1.2) X10*3/uL Eos # (Auto) 0.1 (0.0-0.4) X10*3/uL Baso # (Auto) 0.1 (0.0-0.2) X10*3/uL Abs Immat Gran (auto) 0.03 (0.00-0.03) X10*3/uL Absolute Neuts (auto) 4.8 (2.0-8.3) x10*3/uL Absolute Nucleated RBC 0.000 (0.0-0.012) X10*3/uL Nucleated RBC % (auto) 0.0 (0.0-0.2) /100WBC ESR 7 (0-20) MM/HR Sodium 144 (135-145) mmol/L Potassium 3.6 (3.3-5.1) mmol/L Chloride 105 (96-108) mmol/L Carbon Dioxide 30 H (22-29) mmol/L Anion Gap 13 (12-20) BUN 22 H (9-16) mg/dL Creatinine 1.48 H (0.5-1.4) mg/dL Estim Creat Clear Calc 30.9 Estimated GFR 35 Random Glucose 126 H (60-115) mg/dL Calcium 10.1 D (8.4-10.2) mg/dL Discharge Plan Discharge Clinical Impression: Headache Patient Disposition: Home, Self-Care Instructions: Acute Headache (ED) Additional Instructions: Please be sure to stay well hydrated, drink plenty of fluids. You can take ibuprofen 200 mg, 3 tablets (600mg) every 6-8 hours as needed for pain, in addition to Tylenol 500 mg, 2 tablets (1,000mg) every 4-6 hours as needed for pain, but not to exceed 3 doses daily (3,000mg).? Contact your primary care provider and arrange for follow-up visit within 2-3 days. Return back to emergency department with any new or worsening symptoms or concerns. Prescriptions: No Action losartan 50 mg tablet 50 mg PO DAILY Qty: 90 3RF latanoprost 0.005 % drops 1 drp ophthalmic (eye) BEDTIME cephalexin 500 mg capsule 500 mg PO BID 5 Days Qty: 10 0RF Referrals: Delores Aguilar MD [Primary Care Provider] -
[2023-12-29 18:35] LABS: MANUAL DIFF FLAG NO
[2023-12-29 18:37] LABS: Basophils Absolute Auto 0.1 X10*3/uL (0.0-0.2); Eosinophils Absolute Auto 0.1 X10*3/uL (0.0-0.4); Eosinophils Percent Auto 1.6 % (0-4); Hematocrit 39.6 % (37.0-47.0); Hemoglobin 13.1 g/dl (12.0-16.0); Imm Gran Abs Auto 0.03 X10*3/uL (0.00-0.03); Imm Gran Pct Auto 0.4 % (0.0-0.4); Lymphocytes Absolute Auto 1.9 X10*3/uL (1.2-4.9); Lymphocytes Percent Auto 24.4 % (20-40); Mean Corpuscular HGB Conc 33.1 g/dl (31.0-35.0); Mean Corpuscular Hemoglobin 30.8 pg (27.0-33.0); Mean Corpuscular Volume 93.2 fL (80.0-98.0); Mean Platelet Volume 9.9 fL (9.4-12.3); Monocytes Absolute Auto 0.8 X10*3/uL (0.1-1.2); Monocytes Percent Auto 10.1 % (2-11); Neutrophils Absolute Auto 4.8 x10*3/uL (2.0-8.3); Neutrophils Percent Auto 62.5 % (45-73); Platelet Count 256 X10*3/uL (160-400); Red Blood Count 4.25 X10*6/uL (4.20-5.50); Red Cell Distribution Width 11.9 % (11.0-16.0); White Blood Count 7.7 X10*3/uL (4.8-10.8)
[2023-12-29 18:48] LABS: Anion Gap 13 (12-20); Blood Urea Nitrogen 22 mg/dL (9-16); Calcium 10.1 mg/dL (8.4-10.2); Carbon Dioxide 30 mmol/L (22-29); Chloride 105 mmol/L (96-108); Creatinine Clr Calc Pharmacy 30.9; Estimated Glomerular Filt Rate 35; Glucose Random 126 mg/dL (60-115); Potassium 3.6 mmol/L (3.3-5.1); Sodium 144 mmol/L (135-145)
[2023-12-29 19:19] LABS: Erythrocyte Sedimentation Rate 7 MM/HR (0-20)
[2023-12-29 23:40] VITALS: BP 160/81; PULSE 99; RESP 16; TEMP 37.1; O2SAT 99
[2023-12-30 00:07] LABS: COVID-19 Test Negative (Negative); IDNOW Serial# 08D9AD1C; IDNOW Serial# 9DB6401D; Influenza A Negative (Negative); Influenza B2 Negative (Negative)
== END 2023-12-30 00:48 | disposition home or self-care (01) ==
PROVIDERS: Nurse Practitioner Family; Physician Assistant; Emergency Provider Emergency Medicine; PCP Internal Medicine
DX: R51.9 Headache, unspecified (principal); Z79.899 Other long term (current) drug therapy; Z11.52 Encounter for screening for COVID-19
CPT/HCPCS: 36415; 70450; 80048; 85025; 85652; 87502; 87635; 99284

== ENCOUNTER 2024-01-07 10:09 | Outpatient (AMB) | payer MEDICARE, OTHER, SELFPAY ==
[2024-01-07 10:25] VITALS: BP 138/76; PULSE 97; O2SAT 96; BMI 22.1
--- NOTE | 2024-01-07 10:25 | MHC.PC.OV ---
Vital Signs 01/07/24 10:25 Height 5 ft 4 in Weight 129 lb BMI 22.1 BP 138/76 Blood Pressure Location Rt brachial Position Sitting Pulse 97 Pulse Source Pulse Oximeter Pulse Oximetry (%) 96 Oxygen Delivery Method Room Air Intake Visit Reasons: [facility] ER follow up/headaches Intake Note: Pt is here today for ER follow up visit. Allergies timolol [TIMOLOL] Allergy (Intermediate, Verified 01/07/24 10:43) HAND AND FEET TINGLING, red itchy eyes brimonidine [From ALPHAGAN P] Allergy (Mild, Verified 01/07/24 10:43) REDNESS AND DRYNESS brinzolamide [From AZOPT] Allergy (Mild, Verified 01/07/24 10:43) REDNESS AND DRYNESS dorzolamide [From COSOPT] Allergy (Mild, Verified 01/07/24 10:43) REDNESS AND DRYNESS latanoprost [From XALATAN] Allergy (Mild, Verified 01/07/24 10:43) REDNESS AND DRYNESS paroxetine Allergy (Unknown, Verified 01/07/24 10:43) sweating lisinopril Allergy (Verified 01/07/24 10:43) Cough Medication List - Last Reconciled 01/07/24 by Delores Aguilar MD latanoprost 0.005% 1 drp ophthalmic (eye) BEDTIME losartan 50 mg PO DAILY Tobacco use date assessed: 01/07/24 Fall risk assessment: No Falls in past year Last assessed Fall Risk: 01/07/24 Dental Screening Dental Screen Date: 01/07/24 Did you have a dental visit in the last 12 months?: Yes Did you have a dental problem in the last 6 months where you did not have access to dental care?: No Was dental information given to patient?: Patient has dentist HPI [facility] ER follow up/headaches HPI Details Patient presents for the follow-up of ER visit for acute onset of headache that lasted 3 days. Patient had negative CT of the brain. She has been taking high dose of ibuprofen for those 3 days and was noted to have decreased GFR to 32 with her baseline about 45 patient has been increasing fluid intake. She reports episode of lower abdominal discomfort and intermittent urinary burning sensation. She denies back pain nausea vomiting fever or chills. She was treated for UTI in October [facility] Medical History Rib pain on right side Pain in left hip Knee pain, right Microscopic hematuria Annual physical exam Vitamin B 12 deficiency Vitamin D deficiency Lightheadedness Bilateral carotid bruits Cataract CKD (chronic kidney disease), stage III Breast CA Osteoporosis IBS (irritable bowel syndrome) HTN (hypertension) Surgical History H/O colonoscopy S/P lumpectomy of breast Family History Father Glaucoma HTN (hypertension) Mother HTN (hypertension) Dementia Diabetes mellitus Sister No problems noted. Sister No problems noted. Son No problems noted. Daughter No problems noted. Social History Housing: House Alcohol intake: current Alcohol intake frequency: holidays/special occasions only Patient Tobacco Use Status: Never used Tobacco Second Hand Smoke Exposure: Yes Current occupational status: retired Cognitive needs: No Hearing needs: No Vision needs: Yes Questionnaire Thrive Questionnaire Date Thrive assessed: 06/24/21 AUDIT C Alcohol Use Questionnaire (AUDIT-C) 1. How often do you have a drink containing alcohol?: Monthly or less 2. How many drinks containing alcohol do you have on a typical day when you are drinking?: 1 or 2 3. How often do you have six or more drinks on one occasion?: Never Total Score: 1 BOBBY-7 AMB Questionnaire BOBBY-7 Feeling nervous, anxious, or on edge: 0 = Not at all Not being able to stop or control worryin = Not at all Worrying too much about different things: 0 = Not at all Trouble relaxin = Not at all Being so restless that it is hard to sit still: 0 = Not at all Becoming easily annoyed or irritable: 0 = Not at all Feeling afraid as if something awful might happen: 0 = Not at all Total BOBBY-7 score (0-4 normal; 5-9 mild; 10-14 moderate; 15-21 severe): 0 Source: Developed by Drs. Eddie Dickerson, Sepideh Armenta, Shukri Aguila and colleagues, with an educational michael from [employer]. Review of Systems Const All systems reviewed & are unremarkable except as noted in HPI and below Reports no additional complaints Eyes Reports no additional complaints ENT Reports no additional complaints Card Reports no additional complaints Resp Reports no additional complaints Reports no additional complaints Physical exam (Primary Care) Vital Signs: Last Vital Signs Pulse 97 01/07/24 10:25 BP 146/76 H 01/07/24 10:25 Pulse Ox 96 01/07/24 10:25 Oxygen Delivery Method Room Air 01/07/24 10:25 BMI result Body Mass Index 22.1 Tobacco/Smoking Status: Tobacco use Status Tobacco use date assessed 01/07/24 01/07/24 10:45 Patient Tobacco Use Status Never used Tobacco 01/07/24 10:45 Thrive Assessment: Date of Thrive Assessment Date Thrive assessed 06/24/21 01/07/24 10:26 Const General: no acute distress HENMT Head: Yes normal to inspection Ears: hearing grossly normal bilaterally Face and sinus: Yes normal facial exam Mouth: Normal oral and palatal mucosa present Eyes General: appearance normal, both eyes and all related structures Neck Neck: Yes no lymphadenopathy and Yes supple Resp Effort & Inspection: normal respiratory effort Auscultation: clear to auscultation bilaterally Cardio Rhythm: regular rhythm Heart sounds: S1 normal heart sound present and S2 normal heart sound present GI Inspection: Yes normal to inspection Palpation (GI): Soft to palpation Percussion: Yes normal to percussion Auscultation: normal bowel sounds Assessment and Plan Assessment & Plan (1) Pelvic pain: Code(s): R10.2 - Pelvic and perineal pain Plan: Repeat UA and urine culture (2) CKD (chronic kidney disease), stage III: Code(s): N18.30 - Chronic kidney disease, stage 3 unspecified Plan: Repeat basic metabolic panel today, increase fluid intake avoidance of nephrotoxins including NSAIDs discussed with the patient. (3) HTN (hypertension): Code(s): I10 - Essential (primary) hypertension Plan: Blood pressure is borderline elevated today. Patient will continue losartan and will follow-up in 1 month Orders: Orders UA w Microscopic Today R10.2 - Pelvic and perineal pain Urine Culture Today R10.2 - Pelvic and perineal pain Basic Metabolic Panel Today R10.2 - Pelvic and perineal pain Coding Level of Care Code Est Pt Level 4 (61267) Diagnoses Pelvic pain R10.2 CKD (chronic kidney disease), stage III N18.30 HTN (hypertension) I10
== END 2024-01-07 13:02 | disposition home or self-care (01) ==
PROVIDERS: PCP Internal Medicine; Visit Provider Internal Medicine
DX: I12.9 Hypertensive chronic kidney disease with stage 1 through stage 4 chronic kidney disease, or unspecified chronic kidney disease (principal); R10.2 Pelvic and perineal pain; N18.30 Chronic kidney disease, stage 3 unspecified
CPT/HCPCS: 99214

== ENCOUNTER 2024-03-23 08:03 | Outpatient (AMB) | payer MEDICARE, OTHER, SELFPAY ==
[2024-03-23 08:07] VITALS: BP 126/74; PULSE 96; TEMP 36.8; O2SAT 97; BMI 22.1
--- NOTE | 2024-03-23 08:07 | AM.OFFWIN_ITS ---
Intake Vital Signs 03/23/24 08:07 Height 5 ft 4 in Weight 129 lb BMI 22.1 BP 126/74 Blood Pressure Location Rt brachial Position Sitting Pulse 96 Pulse Source Pulse Oximeter Temp 98.3 F Temp Source Oral Pulse Oximetry (%) 97 Oxygen Delivery Method Room Air Intake Visit Reasons: EP Cough, cold symptoms (masked) Intake Note: pt is here for cough, runny nose, coughing up phlem. patient states she went to another walk in clinic yesterday and was given antibiotics and is looking for an alternative Patient Tobacco Use Status: Never used Tobacco Allergies timolol [TIMOLOL] Allergy (Intermediate, Verified 03/23/24 08:07) HAND AND FEET TINGLING, red itchy eyes brimonidine [From ALPHAGAN P] Allergy (Mild, Verified 03/23/24 08:07) REDNESS AND DRYNESS brinzolamide [From AZOPT] Allergy (Mild, Verified 03/23/24 08:07) REDNESS AND DRYNESS dorzolamide [From COSOPT] Allergy (Mild, Verified 03/23/24 08:07) REDNESS AND DRYNESS latanoprost [From XALATAN] Allergy (Mild, Verified 03/23/24 08:07) REDNESS AND DRYNESS paroxetine Allergy (Unknown, Verified 03/23/24 08:07) sweating lisinopril Allergy (Verified 03/23/24 08:07) Cough Do you need a note to return to daycare/school/sports/work: Yes HPI HPI Comments History of Present Illness Details She presents to office with cold x 2 weeks Started with 4 days of congestion Then onset cough + lost voice on the start of week 2 She now has sinus pressure and pain She went to a walk in 03/22/24 and was given augmentin Did not take any because it jatinder something about kidney issue son box + cough with phlegm No fevers + sinus pressure and nasal congestion wo rse when laying down [facility] Medical History Rib pain on right side Pain in left hip Knee pain, right Microscopic hematuria Annual physical exam Vitamin B 12 deficiency Vitamin D deficiency Lightheadedness Bilateral carotid bruits Cataract CKD (chronic kidney disease), stage III Breast CA Osteoporosis IBS (irritable bowel syndrome) HTN (hypertension) Surgical History H/O colonoscopy S/P lumpectomy of breast Family History Father Glaucoma HTN (hypertension) Mother HTN (hypertension) Dementia Diabetes mellitus Sister No problems noted. Sister No problems noted. Son No problems noted. Daughter No problems noted. Social History Housing: House Alcohol intake: current Alcohol intake frequency: holidays/special occasions only Patient Tobacco Use Status: Never used Tobacco Second Hand Smoke Exposure: Yes Current occupational status: retired Cognitive needs: No Hearing needs: No Vision needs: Yes Review of Systems Const Denies body aches, Denies chills and Denies fever(s) ENT Denies otalgia, Reports nasal discharge, Reports sinus pain, Reports sinus pressure, Reports sore throat and Denies throat swelling Card Denies chest pain and Denies dyspnea Resp Reports cough and Denies dyspnea Aller/Immun Denies throat swelling Physical Exam Vital Signs: Last Vital Signs Temp 98.3 F 03/23/24 08:07 Pulse 96 03/23/24 08:07 BP 126/74 03/23/24 08:07 Pulse Ox 97 03/23/24 08:07 Oxygen Delivery Method Room Air 03/23/24 08:07 BMI result Body Mass Index 22.1 General: Non-toxic, NAD. Speaking full sentences. Skin: Warm dry throughout Eye: EOMI HENT: + rhinorrhea and sinus tenderness to palpation. Airway patent. Uvula midline. No pharyngeal erythema or edema. No SAMPLE MOUNTER. Bilateral canals clear. TM non-erythematous, non-bulging. No TM perforation or hemotympanum noted. Respiratory: CTA bilaterally. No wheezes, rales or rhonchi Cardiac: RRR. No murmur MSK: Full ROM extremities. Neurology: A/O. No aphasia or facial droop. Gait without abnormality Psych: Good mood and affect Assessment & Plan Assessment & Plan (1) Sinusitis: Code(s): J32.9 - Chronic sinusitis, unspecified Qualifiers: Chronicity: acute Recurrence: non-recurrent Sinusitis location: maxillary Qualified Code(s): J01.00 - Acute maxillary sinusitis, unspecified Plan: Patient seen and evaluated. Augmentin will be switched to doxycyline due to renal function Take with food F/U with PCP Patient gave verbal understanding and had no additional questions or concerns at time of discharge All questions answered Medications: New doxycycline hyclate 100 mg PO BID 14 tabs 0RF 7 days Coding Level of Care Code Est Pt Level 3 (21654) Diagnoses Acute non-recurrent maxillary sinusitis J01.00 Chronicity: acute Recurrence: non-recurrent Sinusitis location: maxillary
== END 2024-03-23 09:08 | disposition home or self-care (01) ==
PROVIDERS: PCP Internal Medicine; Visit Provider Physician Assistant
DX: J01.00 Acute maxillary sinusitis, unspecified (principal)
CPT/HCPCS: 99213

== ENCOUNTER 2024-04-11 09:04 | Outpatient (REF) | payer MEDICARE, OTHER, SELFPAY ==
[2024-04-11 11:04] LABS: Anion Gap 14 (12-20); Blood Urea Nitrogen 20 mg/dL (9-16); Calcium 9.5 mg/dL (8.4-10.2); Carbon Dioxide 27 mmol/L (22-29); Chloride 108 mmol/L (96-108); Estimated Glomerular Filt Rate 41; Glucose Random 105 mg/dL (60-115); Sodium 145 mmol/L (135-145)
[2024-04-11 14:09] LABS: Appearance Urine Clear; Color Urine Yellow; Glucose Urine UA Negative (Negative); Leukocyte Esterase Urine Small (1+) (Negative); Nitrite Urine Negative (Negative); PH 5.5 (5.0-9.0); UMIC TRIGGER UA YES; Urine Blood Moderate (2+) (Negative); Urine Ketones Negative (Negative); Urine Protein Negative (Neg-Trace)
[2024-04-11 14:25] LABS: Bacteria Urine None Seen (None Seen); Hyaline Casts Urine 0-2 /LPF (0-2); RBC Urine 0-2 /HPF (0-2)
== END 2024-04-11 09:05 | disposition home or self-care (01) ==
LOC: HO.HMGCLDS 09:04
PROVIDERS: PCP Internal Medicine; Visit Provider Internal Medicine
DX: R10.2 Pelvic and perineal pain (principal)
CPT/HCPCS: 36415; 80048; 81001; 87086

== ENCOUNTER 2024-04-13 08:49 | Outpatient (AMB) | payer MEDICARE, OTHER, SELFPAY ==
--- NOTE | 2024-04-13 08:50 | A.OFFVIS_ITS ---
Intake Vital Signs 04/13/24 08:59 Height 5 ft 4 in Weight 135 lb BMI 23.2 BP 120/66 Blood Pressure Location Rt brachial Position Sitting Pulse 77 Pulse Source Pulse Oximeter Pulse Oximetry (%) 97 Oxygen Delivery Method Room Air Intake Visit Reasons: V [id number] Allergies timolol [TIMOLOL] Allergy (Intermediate, Verified 04/13/24 09:02) HAND AND FEET TINGLING, red itchy eyes brimonidine [From ALPHAGAN P] Allergy (Mild, Verified 04/13/24 09:02) REDNESS AND DRYNESS brinzolamide [From AZOPT] Allergy (Mild, Verified 04/13/24 09:02) REDNESS AND DRYNESS dorzolamide [From COSOPT] Allergy (Mild, Verified 04/13/24 09:02) REDNESS AND DRYNESS latanoprost [From XALATAN] Allergy (Mild, Verified 04/13/24 09:02) REDNESS AND DRYNESS paroxetine Allergy (Unknown, Verified 04/13/24 09:02) sweating lisinopril Allergy (Verified 04/13/24 09:02) Cough Medication List - Last Reconciled 04/13/24 by Delores Aguilar MD latanoprost 0.005% 1 drp ophthalmic (eye) BEDTIME losartan 50 mg PO DAILY HPI SWV [id number] HPI Details Initiated the conversation about Advanced Directives. Advanced Directives help? patients prepare for current and future decisions about their medical treatment? and place of care. Discussed with patient that it is a process where a patients? current condition and prognosis are reviewed, their wishes for information? regarding their illness are elicited, and likely medical dilemmas are presented? and options discussed. The form can be amended as needed, reviewed yearly and? make changes as needed IPPE/AWV ? year old presents? for her ? Annual? Wellness Visit, initial visit.? Medical / Social History Reviewed? Past Medical History ?Yes? . ? [place]? of Care / Care Team list updated ?Yes . ? Surgical/Hospitalization? History ?Yes . ? Current Medications? (including OTC and supplements) ?Yes . ? Family History ?Yes? . ? Tobacco? Control form ?Yes . ? AUDIT-C (Alcohol use) form? ?Yes . ? Illicit drug use in Social? History ?Yes . ? Current diagnosis of? depression? ?No ? Appropriate PHQ2/PHQ9? completed ?Yes . ? Data entered by ?Medical? [employer] and reviewed by provider ? Fall Risk ? Fall? History? Have you had any falls with? injury in the past year? ?No . ? Have you had two or more? falls in the past year? ?No . ? Fall Risk Assessment: ?No? falls in the past year . ? HRA filled out by? the patient, reviewed by Provider and scanned. ? IPPE/AWV ? Balance? [place]? ?Yes . ? Tandem? walk ?Yes . ? Walk and? Turn ?Yes . ? Rise from? sit to stand ?Yes . ?Vision? Corrective? lens ?Yes ? Vision? screen ? Up-to-date, has an appointment [] for vision? screening and glaucoma screening ?Hearing? Whisper? test ?pass .? Initiated the conversation about Advanced Directives. Advanced Directives help? patients prepare for current and future decisions about their medical treatment? and place of care. Discussed with patient that it is a process where a patients? current condition and prognosis are reviewed, their wishes for information? regarding their illness are elicited, and likely medical dilemmas are presented? and options discussed. The form can be amended as needed, reviewed yearly and? make changes as needed Written? Plan?Completed. See Patient? Documents. [facility] Medical History (Updated 04/13/24 @ 09:54 by Delores Aguilar MD) Rib pain on right side Pain in left hip Knee pain, right Microscopic hematuria Annual physical exam Vitamin B 12 deficiency Vitamin D deficiency Lightheadedness Bilateral carotid bruits Cataract CKD (chronic kidney disease), stage III Breast CA Osteoporosis IBS (irritable bowel syndrome) HTN (hypertension) Surgical History H/O colonoscopy S/P lumpectomy of breast Family History Father Glaucoma HTN (hypertension) Mother HTN (hypertension) Dementia Diabetes mellitus Sister No problems noted. Sister No problems noted. Son No problems noted. Daughter No problems noted. Social History Housing: House Alcohol intake: current Alcohol intake frequency: holidays/special occasions only Patient Tobacco Use Status: Never used Tobacco Second Hand Smoke Exposure: Yes Current occupational status: retired Cognitive needs: No Hearing needs: No Vision needs: Yes Questionnaire Medicare Wellness Checkup What [age] 65-68 What gender do you identify with?: female During the past 4 weeks, how much have you been bothered by emotional problems such as feeling anxious, depressed, irritable, sad or downhearted, and blue?: not at all During the past 4 weeks, has your physical & emotional health limited your social activities with family, friends, neighbors, or groups?: not at all During the past 4 weeks, how much bodily pain have you generally had?: mild pain During the past 4 weeks, was someone available to help you if you needed & wanted help?: yes, as much as I wanted During the past 4 weeks, what was the hardest physical activity you could do for at least 2 minutes?: moderate Can you get to places out of walking distance without help? (For eg., can you travel alone on buses, taxis or drive your car?): Yes Can you go shopping for groceries or clothes without someone's help?: Yes Can you prepare your own meals?: Yes Can you do your housework without help?: Yes Because of any health problems, do you need the help of another person with your personal care needs such as eating, bathing, dressing or getting around the house?: No Can you handle your own money without help?: Yes During the past 4 weeks, how would you rate your health in general?: good During the past 4 weeks how have things been going for you?: pretty well Are you having difficulties driving your car?: no Do you always fasten your seat belt when you are in a car?: yes, usually During past 4 weeks, have you been bothered by the following: never: Falling or dizzy when standing up, Sexual problems?, Trouble eating well?, Teeth or denture problems?, Problems using the telephone? and Tiredness or fatigue? Have you fallen 2 or more times in the past year?: No Are you afraid of falling?: No Are you a smoker?: no During the past 4 weeks, how many drinks of wine, beer, or other alcoholic beverages did you have?: no alcohol at all Do you exercise for about 20 minutes 3 or more times a week?: yes, some of the time Have you been given information to help with the following?: yes: Hazards in your house that might hurt you? and no: Keeping track of your medications? How often do you have trouble taking medicines the way you have been told to take them?: I always take medicine as prescribed How confident are you that you can control & manage most of your health problems?: very confident What is your race?: White Mini Mental State Exam (MMSE) Orientation What is the (year) (season) (date) (day) (month)?: year, season, date, day and month Where are we (state) (county) (town or city) (hospital) (floor)?: state, county, town or city, hospital/clinic and floor Registration Name of 3 unrelated objects clearly and slowly, then ask patient to repeat all 3 of them. (1st repeat determines score. Make sure they can repeat all three): object 1, object 2 and object 3 Recall Ask patient to repeat the 3 items from question #3.: object 1, object 2 and object 3 Language Show patient a wristwatch & ask what it is. Repeat for pencil.: watch and pencil Ask the patient to repeat the phrase 'No ifs, ands, or buts' after you.: correct Ask the patient to 'take a piece of paper with their right hand' 'fold paper in half' 'place paper on floor': take paper in right hand, fold paper in half and place paper on floor Print the sentence 'CLOSE YOUR EYES' on a piece. If patient actually closes eyes then score.: followed written direction Give patient a blank piece of paper & ask to write a sentence. Score if it contains a noun & verb.: sentence contains subject and verb Ask patient to copy figure of intersecting pentagons exactly. Score if all 10 angles & 2 intersects are included.: all 10 angles present & 2 are intersected Score Score: 25 Activity of Daily Living Bathing - sponge bath, tub bath or shower: receives no assistance (gets in/out by self, if usual bathing means Dressing - getting clothes from closets & drawers, including inner/outer garments & fasteners.: gets clothes & gets completely dressed without help Toileting - going to the 'toilet room' for urine/bowel elimination & cleaning self/arranging clothes: goes to toilet room, cleans self, arranges clothes without help Transfer: moves in & out of bed and chair without help (may use support object) Continence: controls urination/bowel movements completely by self Feeding: feeds self without help Total Score: 0 Information obtained from: patient Using telephone: independent Traveling: independent Shopping: independent Preparing meals: independent Housework: independent Taking medicine: independent Managing money: independent PHQ-9 Over the last 2 weeks, how often have you been bothered by any of the following problems? 1. Little interest or pleasure in doing things: not at all 2. Feeling down, depressed, or hopeless: several days 3. Trouble falling or staying asleep, or sleeping too much: not at all 4. Feeling tired or having little energy: not at all 5. Poor appetite or overeating: not at all 6. Feeling bad about yourself - or that you are a failure or have let yourself or your family down: not at all 7. Trouble concentrating on things, such as reading the newspaper or watching television: not at all 8. Moving or speaking so slowly that other people could have noticed. Or the opposite - being so fidgety or restless that you have been moving around a lot more than usual: not at all 9. Thoughts that you would be better off or of hurting yourself in some way: not at all Total score: 1 Depression Screening Interpretation: Negative Depression Screening Done: Yes 90764 - PHQ-9 Billing: Yes Source: Developed by Drs. Eddie Dickerson, Sepideh Armenta, Shukri Aguila and colleagues, with an educational michael from [employer]. Review of Systems Const All systems reviewed & are unremarkable except as noted in HPI and below ENT Reports no additional complaints Card Reports no additional complaints Resp Reports no additional complaints GI Reports no additional complaints Reports no additional complaints Physical Exam Vital Signs: Last Vital Signs Pulse 77 04/13/24 08:59 BP 120/66 04/13/24 08:59 Pulse Ox 97 04/13/24 08:59 Oxygen Delivery Method Room Air 04/13/24 08:59 BMI result Body Mass Index 23.2 Const General: no acute distress HEENT Head: Yes normal to inspection General nose exam: Normal external nose present Neck Neck: Yes no lymphadenopathy and Yes supple Resp Effort & Inspection: normal respiratory effort Auscultation: clear to auscultation bilaterally Cardio Rhythm: regular rhythm Heart sounds: S1 normal heart sound present and S2 normal heart sound present GI Inspection: Yes normal to inspection Palpation (GI): Soft to palpation Percussion: Yes normal to percussion Auscultation: normal bowel sounds Extrem General: Yes no clubbing, cyanosis or edema Assessment & Plan Assessment & Plan (1) Osteoporosis: Comment: DEXA:, 2021, pt refused meds, Code(s): M81.0 - Age-related osteoporosis without current pathological fracture Qualifiers: Osteoporosis type: other Presence of current pathological fracture: without current pathological fracture Qualified Code(s): M81.8 - Other osteoporosis without current pathological fracture Plan: Continue vitamin-D regular exercise, repeat DEXA (2) HTN (hypertension): Code(s): I10 - Essential (primary) hypertension Plan: Continue losartan (3) CKD (chronic kidney disease), stage III: Code(s): N18.30 - Chronic kidney disease, stage 3 unspecified Plan: Avoid nephrotoxins monitor renal function (4) Vitamin D deficiency: Code(s): E55.9 - Vitamin D deficiency, unspecified Plan: Continue vitamin-D supplement (5) Vitamin B 12 deficiency: Code(s): E53.8 - Deficiency of other specified B group vitamins Plan: Continue vitamin B supplement Orders: Orders XR DEXA axial skeleton Today M81.8 - Other osteoporosis without current pathological fracture Complete Blood Count Auto Diff 6 Months E53.8 - Deficiency of other specified B group vitamins, E55.9 - Vitamin D deficiency, unspecified, I10 - Essential (primary) hypertension, M81.8 - Other osteoporosis without current pathological fracture, N18.30 - Chronic kidney disease, stage 3 unspecified TSH reflex Free T4 6 Months E53.8 - Deficiency of other specified B group vitamins, E55.9 - Vitamin D deficiency, unspecified, I10 - Essential (primary) hypertension, M81.8 - Other osteoporosis without current pathological fracture, N18.30 - Chronic kidney disease, stage 3 unspecified Comprehensive [place]. Panel Fast 6 Months E53.8 - Deficiency of other specified B group vitamins, E55.9 - Vitamin D deficiency, unspecified, I10 - Essential (primary) hypertension, M81.8 - Other osteoporosis without current pathological fracture, N18.30 - Chronic kidney disease, stage 3 unspecified Lipid Panel 6 Months E53.8 - Deficiency of other specified B group vitamins, E55.9 - Vitamin D deficiency, unspecified, I10 - Essential (primary) hypertension, M81.8 - Other osteoporosis without current pathological fracture, N18.30 - Chronic kidney disease, stage 3 unspecified Quality Reporting (2019) Depression/Bipolar (159/160/161/177) PHQ-9: Total score: 1 Coding Level of Care Code Medicare Subsequent (G0439) Diagnoses Other osteoporosis without current pathological fracture M81.8 Osteoporosis type: other Presence of current pathological fracture: without current pathological fracture HTN (hypertension) I10 CKD (chronic kidney disease), stage III N18.30 Vitamin D deficiency E55.9 Vitamin B 12 deficiency E53.8 CPT Codes Advance Care Planning - Advance Care Planning discussion: On file, no changes ([id number]) Advance Care Planning - Time spent: 1-15 minutes, on File ([id number]) Advance Care Planning Advance Care Planning discussion: On file, no changes Forms completed: Health Care Proxy Time spent: 1-15 minutes, on File
[2024-04-13 08:59] VITALS: BP 120/66; PULSE 77; O2SAT 97; BMI 23.2
== END 2024-04-13 15:55 | disposition home or self-care (01) ==
PROVIDERS: PCP Internal Medicine; Visit Provider Internal Medicine
DX: Z00.00 Encounter for general adult medical examination without abnormal findings (principal); I12.9 Hypertensive chronic kidney disease with stage 1 through stage 4 chronic kidney disease, or unspecified chronic kidney disease; N18.30 Chronic kidney disease, stage 3 unspecified; M81.8 Other osteoporosis without current pathological fracture; E55.9 Vitamin D deficiency, unspecified; E53.8 Deficiency of other specified B group vitamins
CPT/HCPCS: 1123F; G0439

== ENCOUNTER 2024-06-22 10:26 | Outpatient (REF) | payer MEDICARE, OTHER, SELFPAY ==
--- NOTE | ~2024-06-22 | MM_ITS ---
EXAMINATION: BONE DENSITOMETRY CLINICAL INDICATION: Other osteoporosis without current pathological fracture. COMPARISON: Previous BD dated 04/08/2022 and baseline BD dated 09/30/2018. TECHNIQUE: Using a [employer] DXA System (software version: 13.1) manufactured by [employer], dual-energy x-ray absorptiometry was performed of the lumbar spine and left hip. The images are of good technical quality. Summary results are attached. FINDINGS: LEFT FEMUR, NECK: Current: BMD 0.704 g/cm2, Z-score -0.6, T-score -2.4, osteopenia. Prior: BMD 0.626 g/cm2. Baseline: BMD 0.626 g/cm2. LEFT FEMUR, TOTAL: Current: BMD 0.773 g/cm2, Z-score -0.3, T-score -1.5, osteopenia, 11.5% increase from previous, 9.8% increase from baseline (<5% change is not significant). Prior: BMD 0.693 g/cm2. Baseline: BMD 0.704 g/cm2. AP SPINE L1-L4: Current: BMD 0.912 g/cm2, Z-score -0.4, T-score -2.2, osteopenia, 1.9% increase from previous, 2.4% increase from baseline (<5% change is not significant). Prior: BMD 0.895 g/cm2. Baseline: BMD 0.891 g/cm2. IDENTIFIED RISK FACTORS: Menopause, height loss, osteoporosis, renal, family history (parent hip fracture). HISTORY OF FRACTURE: None listed. MEDICATIONS: Vitamin D. MM/XR DEXA axial skeleton IMPRESSION: 1. DIAGNOSIS: Osteopenia based on the lowest T-score value of -2.4 in the femoral neck applying World Health Organization criteria. 2. 10-YEAR FRACTURE RISK PREDICTION, FRAX: Major osteoporotic fracture (clinical spine, forearm, hip or shoulder) 22.5%. Hip fracture 7.1%. 3. Treatment Recommendations: NOF guidelines recommend consideration for treatment in postmenopausal women and men age 50 and older presenting with the following: -A hip or vertebral (clinical or morphometric) fracture. -T-score less than or equal to -2.5 at the femoral neck or spine after appropriate evaluation to exclude secondary causes. -Low bone mass at the hip or spine and a 10-year fracture probability by FRAX of greater than or equal to 3% for hip fracture or greater than or equal to 20% for major osteoporotic fracture based on the [place] adapted WHO algorithm. 4. Other Recommendations: All treatment decisions require clinical judgment and consideration of individual patient factors, including patient preferences, comorbidities, previous drug use, risk factors not captured in the FRAX model (e.g. frailty, falls, vitamin D deficiency, increased bone turnover, interval significant decline in bone density) and possible under or overestimation of fracture risk by FRAX. Additional medical evaluation for secondary cause of low bone mineral density may be appropriate. FUTURE SCAN RECOMMENDATION: People with diagnosed cases of osteoporosis or at high risk for fracture should have regular bone mineral density tests. For patients eligible for Medicare, routine testing is allowed once every 2 years. The testing frequency can be increased to one year for patients who have rapidly progressing disease, those who are receiving or discontinuing medical therapy to restore bone mass, or have additional risk factors.
== END 2024-06-22 10:27 | disposition home or self-care (01) ==
LOC: HO.MAMMO 10:26
PROVIDERS: PCP Internal Medicine; Visit Provider Internal Medicine
DX: M81.8 Other osteoporosis without current pathological fracture (principal)
CPT/HCPCS: 77080

== ENCOUNTER 2024-08-15 08:02 | Outpatient (AMB) | payer MEDICARE, OTHER, SELFPAY ==
--- NOTE | 2024-08-15 08:11 | MHC.OFFWIV ---
Intake Vital Signs 08/15/24 08:15 08/15/24 08:42 08/15/24 08:42 Height 5 ft 4 in Weight 137 lb BMI 23.5 BP 138/82 160/70 H 154/76 H Blood Pressure Location Lt brachial Position Sitting Sitting Standing Pulse 98 Pulse Source Pulse Oximeter Temp 98.2 F Temp Source Oral Pulse Oximetry (%) 98 Oxygen Delivery Method Room Air Intake Visit Reasons: EP Dizzy, lightheadedness for 1 week. Intake Note: pt c/o dizziness and lightheaded for 1 week Patient Tobacco Use Status: Never used Tobacco Allergies timolol [TIMOLOL] Allergy (Intermediate, Verified 08/15/24 08:18) HAND AND FEET TINGLING, red itchy eyes brimonidine [From ALPHAGAN P] Allergy (Mild, Verified 08/15/24 08:18) REDNESS AND DRYNESS brinzolamide [From AZOPT] Allergy (Mild, Verified 08/15/24 08:18) REDNESS AND DRYNESS dorzolamide [From COSOPT] Allergy (Mild, Verified 08/15/24 08:18) REDNESS AND DRYNESS latanoprost [From XALATAN] Allergy (Mild, Verified 08/15/24 08:18) REDNESS AND DRYNESS paroxetine Allergy (Unknown, Verified 08/15/24 08:18) sweating lisinopril Allergy (Verified 08/15/24 08:18) Cough Do you need a note to return to daycare/school/sports/work: No HPI EP Dizzy, lightheadedness for 1 week. HPI Details This note is constructed using voice recognition software. While every effort has been made to ensure accuracy, software program manager errors may have been included. The patient is a 68 year old female who presents to the clinic today with lightheadedness intermittently for the past week. She notes that she has been a prediabetic and has also had a history of hypertension. She is treated for hypertension with losartan, and takes her medication daily. She does not routinely monitor her blood pressure any longer but does have a blood pressure cuff available to her and intermittently checks it at home with normal numbers. She notes in terms of her prediabetes she has used intermittent fasting intermittently for the past several years with no side effects. She was on vacation for some period of time and came back about a month ago and started some intermittent fasting again. She additionally went to the [facility] after her symptoms started as they offer a wellness Clinic every Thursday, and at that time her glucose level was 60, and her blood pressure was 140/80. She denies any room spinning, headache, chest pain, palpitations, fever, chills, cough, shortness of breath, sinus pressure. She has not been around anybody who has been sick. The symptoms were more intermittent and becoming more consistent though not constant throughout the entire day. She has had no trauma to her head. [facility] Medical History (Updated 04/13/24 @ 09:54 by Delores Aguilar MD) Rib pain on right side Pain in left hip Knee pain, right Microscopic hematuria Annual physical exam Vitamin B 12 deficiency Vitamin D deficiency Lightheadedness Bilateral carotid bruits Cataract CKD (chronic kidney disease), stage III Breast CA Osteoporosis IBS (irritable bowel syndrome) HTN (hypertension) Surgical History H/O colonoscopy S/P lumpectomy of breast Family History Father Glaucoma HTN (hypertension) Mother HTN (hypertension) Dementia Diabetes mellitus Sister No problems noted. Sister No problems noted. Son No problems noted. Daughter No problems noted. Social History Housing: House Alcohol intake: current Alcohol intake frequency: holidays/special occasions only Patient Tobacco Use Status: Never used Tobacco Second Hand Smoke Exposure: Yes Current occupational status: retired Cognitive needs: No Hearing needs: No Vision needs: Yes Review of Systems Const All systems reviewed & are unremarkable except as noted in HPI and below Physical Exam Vital Signs: Last Vital Signs Temp 98.2 F 08/15/24 08:15 Pulse 98 08/15/24 08:15 BP 154/76 H 08/15/24 08:42 Pulse Ox 98 08/15/24 08:15 Oxygen Delivery Method Room Air 08/15/24 08:15 BMI result Body Mass Index 23.5 Const General: cooperative, healthy appearing, comfortable, no acute distress and alert Orientation/consciousness: patient oriented x3 Limitations: no limitations HEENT Head: Yes normal to inspection and Yes normocephalic Ears: hearing grossly normal bilaterally General nose exam: Normal external nose present Face and sinus: Yes normal facial exam and Yes sinuses nontender Mouth: Normal oral and palatal mucosa present and tongue normal Teeth and gingiva: dentition normal Throat: Yes posterior oropharynx normal Eyes General: appearance normal, both eyes and all related structures EOM: Nystagmus present (horizontal) Neck Neck: Yes normal visual inspection, Yes full ROM and Yes no lymphadenopathy Resp Effort & Inspection: normal respiratory effort and able to speak in complete sentences Auscultation: clear to auscultation bilaterally Cardio Jugular venous distension: no JVD Palpation: normal PMI Rate: regular rate Heart sounds: S1 normal heart sound present, S2 normal heart sound present, no click, no gallops, no murmurs and no rubs Skin General skin exam: no rashes or lesions noted, elasticity normal and turgor normal Neuro General: patient oriented x3 Cranial nerves: Yes CN's II-XII intact bilaterally and Yes Nystagmus present (horizontal) Extrem General: Yes normal to inspection, Yes full ROM, Yes capillary refill normal and Yes normal exam except as noted Psych Appearance: grossly normal Mental Status: mental status grossly normal Speech and movement: Normal speech and movement present Affect: normal affect Assessment & Plan Assessment & Plan (1) BPPV (benign paroxysmal positional vertigo): Code(s): H81.10 - Benign paroxysmal vertigo, unspecified ear Qualifiers: Laterality: unspecified laterality Qualified Code(s): H81.10 - Benign paroxysmal vertigo, unspecified ear Plan: Advised patient to avoid driving while dizzy. We will try a short course meclizine as needed. Advised patient to follow up primary care provider should symptoms persist or fail to resolve. Patient should increase blood pressure monitoring at home for any involvement that this may have, and follow up with primary for updated plan of care in terms of hypertension treatment if needed. Additionally advised patient to avoid excessive intermittent fasting given glucose is 60 in [facility]. Plan See above for full details and plan. Medications: New meclizine 12.5 mg PO TID PRN 10 tabs 0RF dizziness Coding Level of Care Code Est Pt Level 3 (17760) Diagnoses Benign paroxysmal positional vertigo, unspecified laterality H81.10 Laterality: unspecified laterality
[2024-08-15 08:15] VITALS: BP 138/82; PULSE 98; TEMP 36.8; O2SAT 98; BMI 23.5
[2024-08-15 08:42] VITALS: BP 154/76; BP 160/70
== END 2024-08-15 08:39 | disposition home or self-care (01) ==
PROVIDERS: PCP Internal Medicine; Visit Provider Registered Nurse
DX: H81.10 Benign paroxysmal vertigo, unspecified ear (principal)

== ENCOUNTER → 2024-08-15 08:02 | Outpatient (BNVA) | payer MEDICARE, OTHER, SELFPAY | PROVIDERS: PCP Internal Medicine; Visit Provider Internal Medicine | DX: H81.10 Benign paroxysmal vertigo, unspecified ear (principal) | CPT/HCPCS: 99212 ==

== ENCOUNTER 2024-10-20 12:06 | Outpatient (AMB) | payer MEDICARE, OTHER, SELFPAY ==
[2024-10-20 12:15] VITALS: BP 138/80; PULSE 76; O2SAT 98; BMI 23.5
--- NOTE | 2024-10-20 12:15 | MHC.PC.OV ---
Vital Signs 10/20/24 12:15 Height 5 ft 4 in Weight 137 lb BMI 23.5 BP 138/80 Blood Pressure Location Lt brachial Position Sitting Pulse 76 Pulse Source Pulse Oximeter Pulse Oximetry (%) 98 Intake Visit Reasons: Abdominal discomfort Intake Note: pt is here for abd discomfort Technical Translator Required: No Accompanied by: Self / Same As Patient Allergies timolol [TIMOLOL] Allergy (Intermediate, Verified 10/20/24 12:16) HAND AND FEET TINGLING, red itchy eyes brimonidine [From ALPHAGAN P] Allergy (Mild, Verified 10/20/24 12:16) REDNESS AND DRYNESS brinzolamide [From AZOPT] Allergy (Mild, Verified 10/20/24 12:16) REDNESS AND DRYNESS dorzolamide [From COSOPT] Allergy (Mild, Verified 10/20/24 12:16) REDNESS AND DRYNESS latanoprost [From XALATAN] Allergy (Mild, Verified 10/20/24 12:16) REDNESS AND DRYNESS paroxetine Allergy (Unknown, Verified 10/20/24 12:16) sweating lisinopril Allergy (Verified 10/20/24 12:16) Cough Tobacco use date assessed: 01/07/24 Fall risk assessment: No Falls in past year Last assessed Fall Risk: 10/20/24 Dental Screening Dental Screen Date: 01/07/24 HPI Abdominal discomfort HPI Details Pt c/o L side and lower abd pain pressure burning like sensation on and off lasting up to 5 minutes but lasting throughout the day for 2 weeks. She denies nausea vomiting fever chills dysuria hematuria constipation diarrhea hematochezia. Patient reports slightly decreased appetite. [facility] Medical History (Updated 10/20/24 @ 12:55 by Delores Aguilar MD) Rib pain on right side Pain in left hip Knee pain, right Microscopic hematuria Annual physical exam Vitamin B 12 deficiency Vitamin D deficiency Lightheadedness Bilateral carotid bruits Cataract CKD (chronic kidney disease), stage III Breast CA Osteoporosis IBS (irritable bowel syndrome) HTN (hypertension) Surgical History H/O colonoscopy S/P lumpectomy of breast Family History Father Glaucoma HTN (hypertension) Mother HTN (hypertension) Dementia Diabetes mellitus Sister No problems noted. Sister No problems noted. Son No problems noted. Daughter No problems noted. Social History Housing: House Alcohol intake: current Alcohol intake frequency: holidays/special occasions only Patient Tobacco Use Status: Never used Tobacco Second Hand Smoke Exposure: Yes Current occupational status: retired Cognitive needs: No Hearing needs: No Vision needs: Yes Questionnaire PHQ-9 Over the last 2 weeks, how often have you been bothered by any of the following problems? 1. Little interest or pleasure in doing things: not at all 2. Feeling down, depressed, or hopeless: not at all 3. Trouble falling or staying asleep, or sleeping too much: not at all 4. Feeling tired or having little energy: not at all 5. Poor appetite or overeating: not at all 6. Feeling bad about yourself - or that you are a failure or have let yourself or your family down: not at all 7. Trouble concentrating on things, such as reading the newspaper or watching television: not at all 8. Moving or speaking so slowly that other people could have noticed. Or the opposite - being so fidgety or restless that you have been moving around a lot more than usual: not at all 9. Thoughts that you would be better off or of hurting yourself in some way: not at all Total score: 0 Depression Screening Interpretation: Negative Depression Screening Done: Yes 32824 - PHQ-9 Billing: Yes Source: Developed by Drs. Eddie Dickerson, Sepideh Armenta, Shukri Aguila and colleagues, with an educational michael from [employer]. Thrive Questionnaire Date Thrive assessed: 10/20/24 I am a: Patient What is your living situation today?: I have a steady place to live Within the past 12 months, did the food you bought not last and you didn't have the money to get more?: Never true Within the past 12 months, did you worry whether your food would run out before you got money to buy more?: Never true Do you have trouble paying for medicines?: No Do you have trouble getting transportation to medical appointments?: No Do you have trouble paying your heating and electricity bill?: No Do you have trouble taking care of your child, family member or friend?: No Do you have trouble with day-to-day activities such as bathing, preparing meals, shopping, managing finances, etc.?: No Are you currently unemployed and looking for a job?: No Are you interested in more education?: No Please select the resources that you would like help with: None Currently or been in a relationship where the following occur: No concerns reported THRIVE Score: 0 AUDIT C Alcohol Use Questionnaire (AUDIT-C) 1. How often do you have a drink containing alcohol?: Monthly or less 2. How many drinks containing alcohol do you have on a typical day when you are drinking?: 1 or 2 3. How often do you have six or more drinks on one occasion?: Never Total Score: 1 Score Reviewed/Action Taken: Yes BOBBY-7 AMB Questionnaire BOBBY-7 Date BOBBY - 7 assessed: 10/20/24 Feeling nervous, anxious, or on edge: 0 = Not at all Not being able to stop or control worryin = Not at all Worrying too much about different things: 0 = Not at all Trouble relaxin = Not at all Being so restless that it is hard to sit still: 0 = Not at all Becoming easily annoyed or irritable: 0 = Not at all Feeling afraid as if something awful might happen: 0 = Not at all Total BOBBY-7 score (0-4 normal; 5-9 mild; 10-14 moderate; 15-21 severe): 0 Source: Developed by Drs. Eddie Dickerson, Sepideh Armenta, Shukri Aguila and colleagues, with an educational michael from [employer]. BOBBY-7 Assessment Billing BOBBY-7 Assessment Tool: BOBBY-7 Assessment 67849 Review of Systems Const All systems reviewed & are unremarkable except as noted in HPI and below Card Reports no additional complaints Resp Reports no additional complaints GI Reports no additional complaints Reports no additional complaints Physical exam (Primary Care) Vital Signs: Last Vital Signs Pulse 76 10/20/24 12:15 BP 138/80 10/20/24 12:15 Pulse Ox 98 10/20/24 12:15 BMI result Body Mass Index 23.5 Tobacco/Smoking Status: Tobacco use Status Tobacco use date assessed 01/07/24 10/20/24 12:16 Patient Tobacco Use Status Never used Tobacco 10/20/24 12:16 PHQ-9: PHQ-9 Score PHQ-9: Total score 0 10/20/24 12:20 Depression Screening Interpretation: Negative Thrive Assessment: Date of Thrive Assessment Date Thrive assessed 10/20/24 10/20/24 12:16 Currently or been in a relationship where the following occur: No concerns reported Const General: no acute distress Neck Neck: Yes normal visual inspection Resp Effort & Inspection: normal respiratory effort Auscultation: clear to auscultation bilaterally Cardio Rhythm: regular rhythm Heart sounds: S1 normal heart sound present and S2 normal heart sound present GI Inspection: Yes normal to inspection Palpation (GI): Soft to palpation, Tenderness to palpation present (GI) in the LLQ and no guarding Percussion: Yes normal to percussion Auscultation: normal bowel sounds Coding Level of Care Code Est Pt Level 3 (04592) Diagnoses Abdominal pain R10.9 Additional Codes BOBBY-7 Assessment Billing - BOBBY-7 Assessment Tool: BOBBY-7 Assessment 94154 ([id number]) PHQ-9 - 87674 - PHQ-9 Billing: Yes ([id number]) Assessment & Plan Assessment & Plan (1) Abdominal pain: Code(s): R10.9 - Unspecified abdominal pain Category: Medical Plan: Obtain CT of the abdomen pelvis to rule out diverticulitis, check CBC BUN creatinine and urinalysis with urine culture Orders: Orders CT abdomen pelvis w IV con Today K57.92 - Diverticulitis of intestine, part unspecified, without perforation or abscess without bleeding Creatinine Today R10.9 - Unspecified abdominal pain UA w Microscopic Today R10.9 - Unspecified abdominal pain Blood Urea Nitrogen Today R10.9 - Unspecified abdominal pain Complete Blood Count Auto Diff Today R10.9 - Unspecified abdominal pain Urine Culture Today R10.9 - Unspecified abdominal pain
== END 2024-10-20 12:59 | disposition home or self-care (01) ==
PROVIDERS: PCP Internal Medicine; Visit Provider Internal Medicine
DX: R10.9 Unspecified abdominal pain (principal)

== ENCOUNTER 2024-10-20 12:06 | Outpatient (REF) | payer MEDICARE, OTHER, SELFPAY ==
[2024-10-20 16:19] LABS: MANUAL DIFF FLAG NO
[2024-10-20 16:31] LABS: Basophils Absolute Auto 0.1 X10*3/uL (0.0-0.2); Eosinophils Absolute Auto 0.2 X10*3/uL (0.0-0.4); Eosinophils Percent Auto 2.8 % (0-4); Hematocrit 40.8 % (37.0-47.0); Hemoglobin 13.6 g/dl (12.0-16.0); Imm Gran Abs Auto 0.02 X10*3/uL (0.00-0.03); Imm Gran Pct Auto 0.3 % (0.0-0.4); Lymphocytes Absolute Auto 1.6 X10*3/uL (1.2-4.9); Lymphocytes Percent Auto 23.7 % (20-40); Mean Corpuscular HGB Conc 33.3 g/dl (31.0-35.0); Mean Corpuscular Hemoglobin 31.2 pg (27.0-33.0); Mean Corpuscular Volume 93.6 fL (80.0-98.0); Mean Platelet Volume 10.5 fL (9.4-12.3); Monocytes Absolute Auto 0.8 X10*3/uL (0.1-1.2); Monocytes Percent Auto 11.5 % (2-11); Neutrophils Absolute Auto 4.1 x10*3/uL (2.0-8.3); Neutrophils Percent Auto 60.7 % (45-73); Platelet Count 236 X10*3/uL (160-400); Red Blood Count 4.36 X10*6/uL (4.20-5.50); Red Cell Distribution Width 11.7 % (11.0-16.0); White Blood Count 6.7 X10*3/uL (4.8-10.8)
[2024-10-20 17:00] LABS: Blood Urea Nitrogen 22 mg/dL (9-16); Estimated Glomerular Filt Rate 42
[2024-10-20 17:08] LABS: TSH reflex Free T4 1.69 uIU/mL (0.32-4.0)
== END 2024-10-20 12:07 | disposition home or self-care (01) ==
LOC: HO.HMGCLDS 12:06
PROVIDERS: PCP Internal Medicine; Visit Provider Internal Medicine
DX: I12.9 Hypertensive chronic kidney disease with stage 1 through stage 4 chronic kidney disease, or unspecified chronic kidney disease (principal); N18.30 Chronic kidney disease, stage 3 unspecified; M81.8 Other osteoporosis without current pathological fracture; E53.8 Deficiency of other specified B group vitamins; E55.9 Vitamin D deficiency, unspecified; R10.9 Unspecified abdominal pain
CPT/HCPCS: 36415; 82565; 84443; 84520; 85025; 96127; 99212

== ENCOUNTER 2024-10-25 08:09 | Outpatient (REF) | payer MEDICARE, OTHER, SELFPAY ==
[2024-10-25 10:01] LABS: MANUAL DIFF FLAG NO
[2024-10-25 10:04] LABS: Basophils Absolute Auto 0.1 X10*3/uL (0.0-0.2); Basophils Percent Auto 1.4 % (0-2); Eosinophils Absolute Auto 0.3 X10*3/uL (0.0-0.4); Eosinophils Percent Auto 5.8 % (0-4); Hematocrit 40.7 % (37.0-47.0); Hemoglobin 13.5 g/dl (12.0-16.0); Imm Gran Abs Auto 0.02 X10*3/uL (0.00-0.03); Imm Gran Pct Auto 0.3 % (0.0-0.4); Lymphocytes Percent Auto 34.1 % (20-40); Mean Corpuscular HGB Conc 33.2 g/dl (31.0-35.0); Mean Corpuscular Hemoglobin 31.5 pg (27.0-33.0); Mean Corpuscular Volume 94.9 fL (80.0-98.0); Mean Platelet Volume 10.4 fL (9.4-12.3); Monocytes Absolute Auto 0.7 X10*3/uL (0.1-1.2); Monocytes Percent Auto 11.8 % (2-11); Neutrophils Absolute Auto 2.7 x10*3/uL (2.0-8.3); Neutrophils Percent Auto 46.6 % (45-73); Platelet Count 238 X10*3/uL (160-400); Red Blood Count 4.29 X10*6/uL (4.20-5.50); Red Cell Distribution Width 11.8 % (11.0-16.0); White Blood Count 5.8 X10*3/uL (4.8-10.8)
[2024-10-25 10:35] LABS: Appearance Urine Clear; Color Urine Yellow; Glucose Urine UA Negative (Negative); Leukocyte Esterase Urine Trace (Negative); Nitrite Urine Negative (Negative); PH 5.5 (5.0-9.0); UMIC TRIGGER UA YES; Urine Blood Negative (Negative); Urine Ketones Negative (Negative); Urine Protein Negative (Neg-Trace)
[2024-10-25 10:46] LABS: Bacteria Urine None Seen (None Seen); Hyaline Casts Urine 0-2 /LPF (0-2); RBC Urine 0-2 /HPF (0-2); Squamous Epithelial Cell Urine 0-2 /HPF (0-2); WBC Urine 0-5 /HPF (0-5)
== END 2024-10-25 08:10 | disposition home or self-care (01) ==
LOC: HO.HMGCLDS 08:09
PROVIDERS: PCP Internal Medicine; Visit Provider Internal Medicine
DX: R10.9 Unspecified abdominal pain (principal)
CPT/HCPCS: 36415; 81001; 85025; 87086

== ENCOUNTER 2024-10-26 12:46 | Outpatient (REF) | payer MEDICARE, OTHER, SELFPAY ==
--- NOTE | ~2024-10-26 | CT_ITS ---
EXAMINATION: CT ABDOMEN AND PELVIS WITH CONTRAST CLINICAL INFORMATION: Diverticulitis of the intestinal, marked unspecified, without perforation COMPARISON: None available. TECHNIQUE: Multidetector volumetric images were obtained from the superior aspect of the liver through the pubic symphysis following administration 85 mL of Omnipaque 350 intravenous contrast without reported immediate complications. Sagittal and coronal reformatted images were obtained on the technologist's workstation. Oral contrast: Yes This CT examination was performed using dose optimization techniques as appropriate, variously including the following: *Automated exposure control *Adjustment of mA and/or kV according to patient size (this includes techniques or standardized protocols for targeted exams where dose is matched to indication/reason for exam; i.e. extremities or head) *Use of iterative reconstruction technique DLP: 499 mGy-cm FINDINGS: Submitted for interpretation on October 28, 2024. LUNG BASES: Patchy and nodular attenuation in the periphery of the right lung bases, lingula and right middle lobe. LIVER, GALLBLADDER, AND BILIARY TREE: Liver measures 10 cm. There are multiple, scattered, less than 3 mm low densities throughout its parenchyma, too small to be fully correct the right. Portal veins, hepatic veins and intrahepatic portions of the IVC are patent. No intrahepatic or extrahepatic biliary ductal dilatation. Gallbladder is contracted without pericholecystic fluid collection or gallbladder wall thickening. PANCREAS: No focal mass. No peripancreatic fluid collection. No main pancreatic ductal dilatation. SPLEEN: 7 cm. No focal mass. ADRENAL GLANDS: No nodular lesions. KIDNEYS AND URETERS: Smaller size with multiple, numerous less than 2 cm low densities throughout the renal cortex, cortical medullary junction. No hydronephrosis in either kidney. No gross renal mass. BLADDER: Fluid-filled. GASTROINTESTINAL TRACT: Abundant stool throughout the large intestine. No intestinal obstruction pattern. No pneumatosis intestinalis. No gross diverticulum. No ascites. No pneumoperitoneum. Appendix is normal in a retrocecal location. Small hiatal hernia.. ABDOMINAL WALL: Small fat-containing umbilical hernia. LYMPH NODES: No lymphadenopathy, mesenteric or retroperitoneal. VASCULAR: No aneurysm or dissection, abdominal aorta. Mixed plaques throughout the abdominal aorta wall and iliac arteries. 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 PELVIC VISCERA: No gross masses. The ovaries are not identified which likely related to patient's age. OSSEOUS STRUCTURES: Multilevel thoracolumbar spondylosis, levoconvex rotoscoliosis apex at L3-4 and grade 1 retrolisthesis, L2-3 and L5-S1. Multilevel perineural cysts from L5 to the sacrum. Fatty atrophy of the lower lumbar muscles. CT/CT abdomen pelvis w IV con IMPRESSION: Abundant stool without intestinal obstruction pattern. No diverticular disease. Abnormal kidneys with multiple cystic lesions. Multilevel thoracolumbar spondylosis and multiple perineural cysts in the lumbosacral region. Small fat-containing umbilical hernia. Chronic interstitial lung disease, superimposed acute inflammatory versus infectious processes cannot be excluded. Atherosclerosis disease. Fleischner guidelines were followed. Electronically signed by: Carloz Clifton MD 10/28/2024 08:11 AM JEFF
[2024-10-26] MEDS: iohexoL 350 MG/ML 100 ML INFUS..BTL IV (15:29)
[2024-10-26] MEDS: Barium Sulfate Oral (Mocha) 450 ML ORAL.SUSP 900 ML PO (15:30)
== END 2024-10-26 12:47 | disposition home or self-care (01) ==
LOC: HO.CT 12:46
PROVIDERS: PCP Internal Medicine; Visit Provider Internal Medicine
DX: K57.92 Diverticulitis of intestine, part unspecified, without perforation or abscess without bleeding (principal)
CPT/HCPCS: 74177; Q9967

== ENCOUNTER → 2024-10-26 12:50 | Outpatient (BNV) | payer MEDICARE, OTHER, SELFPAY | PROVIDERS: PCP Internal Medicine; Visit Provider Radiology Diagnostic Radiology | DX: K57.92 Diverticulitis of intestine, part unspecified, without perforation or abscess without bleeding (principal) | CPT/HCPCS: 74177 ==

== ENCOUNTER 2025-02-06 12:44 | Outpatient (AMB) | payer MEDICARE, OTHER, SELFPAY ==
--- NOTE | 2025-02-06 12:58 | MHC.PC.OV ---
Vital Signs 02/06/25 12:59 Height 5 ft 4 in Weight 136 lb BMI 23.3 BP 112/70 Blood Pressure Location Lt brachial Position Sitting Pulse 90 Pulse Source Pulse Oximeter Temp 98.0 F Temp Source Oral Pulse Oximetry (%) 94 Oxygen Delivery Method Room Air Intake Visit Reasons: R eye glaucoma surgery on 02/22/25 Dr. Urena Allergies timolol [TIMOLOL] Allergy (Intermediate, Verified 02/06/25 12:59) HAND AND FEET TINGLING, red itchy eyes brimonidine [From ALPHAGAN P] Allergy (Mild, Verified 02/06/25 12:59) REDNESS AND DRYNESS brinzolamide [From AZOPT] Allergy (Mild, Verified 02/06/25 12:59) REDNESS AND DRYNESS dorzolamide [From COSOPT] Allergy (Mild, Verified 02/06/25 12:59) REDNESS AND DRYNESS latanoprost [From XALATAN] Allergy (Mild, Verified 02/06/25 12:59) REDNESS AND DRYNESS paroxetine Allergy (Unknown, Verified 02/06/25 12:59) sweating lisinopril Allergy (Verified 02/06/25 12:59) Cough Medication List - Last Reconciled 02/06/25 by Delores Aguilar MD losartan 50 mg PO DAILY Tobacco use date assessed: 02/06/25 Fall risk assessment: No Falls in past year Last assessed Fall Risk: 02/06/25 Dental Screening Dental Screen Date: 02/06/25 Did you have a dental visit in the last 12 months?: Yes Did you have a dental problem in the last 6 months where you did not have access to dental care?: No Was dental information given to patient?: Patient has dentist HPI R eye glaucoma surgery on 02/22/25 Dr. Urena HPI Details Pt presents for preop for glaucoma. HTN is controlled on Losartan. [facility] Medical History Rib pain on right side Pain in left hip Knee pain, right Microscopic hematuria Annual physical exam Vitamin B 12 deficiency Vitamin D deficiency Lightheadedness Bilateral carotid bruits Cataract CKD (chronic kidney disease), stage III Breast CA Osteoporosis IBS (irritable bowel syndrome) HTN (hypertension) Surgical History H/O colonoscopy S/P lumpectomy of breast Family History Father Glaucoma HTN (hypertension) Mother HTN (hypertension) Dementia Diabetes mellitus Sister No problems noted. Sister No problems noted. Son No problems noted. Daughter No problems noted. Social History Housing: House Alcohol intake: current Alcohol intake frequency: holidays/special occasions only Patient Tobacco Use Status: Never used Tobacco Second Hand Smoke Exposure: Yes Current occupational status: retired Cognitive needs: No Hearing needs: No Vision needs: Yes Questionnaire PHQ-9 Over the last 2 weeks, how often have you been bothered by any of the following problems? 1. Little interest or pleasure in doing things: not at all 2. Feeling down, depressed, or hopeless: not at all 3. Trouble falling or staying asleep, or sleeping too much: not at all 4. Feeling tired or having little energy: not at all 5. Poor appetite or overeating: not at all 6. Feeling bad about yourself - or that you are a failure or have let yourself or your family down: not at all 7. Trouble concentrating on things, such as reading the newspaper or watching television: not at all 8. Moving or speaking so slowly that other people could have noticed. Or the opposite - being so fidgety or restless that you have been moving around a lot more than usual: not at all 9. Thoughts that you would be better off or of hurting yourself in some way: not at all Total score: 0 Depression Screening Interpretation: Negative Depression Screening Done: Yes 72569 - PHQ-9 Billing: Yes Source: Developed by Drs. Eddie Dickerson, Sepideh Armenta, Shukri Aguila and colleagues, with an educational michael from [employer]. Thrive Questionnaire Date Thrive assessed: 10/19/24 I am a: Patient What is your living situation today?: I have a steady place to live Within the past 12 months, did the food you bought not last and you didn't have the money to get more?: Never true Within the past 12 months, did you worry whether your food would run out before you got money to buy more?: Never true Do you have trouble paying for medicines?: No Do you have trouble getting transportation to medical appointments?: No Do you have trouble paying your heating and electricity bill?: No Do you have trouble taking care of your child, family member or friend?: No Do you have trouble with day-to-day activities such as bathing, preparing meals, shopping, managing finances, etc.?: No Are you currently unemployed and looking for a job?: No Are you interested in more education?: No Please select the resources that you would like help with: None Currently or been in a relationship where the following occur: No concerns reported THRIVE Score: 0 AUDIT C Alcohol Use Questionnaire (AUDIT-C) 1. How often do you have a drink containing alcohol?: Monthly or less 2. How many drinks containing alcohol do you have on a typical day when you are drinking?: 1 or 2 3. How often do you have six or more drinks on one occasion?: Never Total Score: 1 Score Reviewed/Action Taken: Yes BOBBY-7 AMB Questionnaire BOBBY-7 Date BOBBY - 7 assessed: 02/06/25 Feeling nervous, anxious, or on edge: 0 = Not at all Not being able to stop or control worryin = Not at all Worrying too much about different things: 0 = Not at all Trouble relaxin = Not at all Being so restless that it is hard to sit still: 0 = Not at all Becoming easily annoyed or irritable: 0 = Not at all Feeling afraid as if something awful might happen: 0 = Not at all Total BOBBY-7 score (0-4 normal; 5-9 mild; 10-14 moderate; 15-21 severe): 0 Source: Developed by Drs. Eddie Dickerson, Sepideh Armenta, Shukri Aguila and colleagues, with an educational michael from [employer]. BOBBY-7 Assessment Billing BOBBY-7 Assessment Tool: BOBBY-7 Assessment 21162 Review of Systems Const All systems reviewed & are unremarkable except as noted in HPI and below Reports no additional complaints Eyes Reports no additional complaints ENT Reports no additional complaints Card Reports no additional complaints Resp Reports no additional complaints GI Reports no additional complaints Reports no additional complaints Physical exam (Primary Care) Vital Signs: Last Vital Signs Temp 98.0 F 02/06/25 12:59 Pulse 90 02/06/25 12:59 BP 112/70 02/06/25 12:59 Pulse Ox 94 02/06/25 12:59 Oxygen Delivery Method Room Air 02/06/25 12:59 BMI result Body Mass Index 23.3 Tobacco/Smoking Status: Tobacco use Status Tobacco use date assessed 02/06/25 02/06/25 13:02 Patient Tobacco Use Status Never used Tobacco 02/06/25 13:02 PHQ-9: PHQ-9 Score PHQ-9: Total score 0 02/06/25 13:02 Depression Screening Interpretation: Negative Thrive Assessment: Date of Thrive Assessment Date Thrive assessed 10/19/24 02/06/25 13:02 Currently or been in a relationship where the following occur: No concerns reported Const General: no acute distress HENMT Head: Yes normal to inspection Throat: Yes posterior oropharynx normal Resp Effort & Inspection: normal respiratory effort Auscultation: clear to auscultation bilaterally Cardio Rhythm: regular rhythm Heart sounds: S1 normal heart sound present GI Inspection: Yes normal to inspection Palpation (GI): Soft to palpation Coding Level of Care Code Est Pt Level 4 (84286) Diagnoses Interstitial lung disease J84.9 HTN (hypertension) I10 CKD (chronic kidney disease), stage III N18.30 Glaucoma H40.9 Additional Codes BOBBY-7 Assessment Billing - BOBBY-7 Assessment Tool: BOBBY-7 Assessment 06842 ([id number]) PHQ-9 - 70724 - PHQ-9 Billing: Yes ([id number]) Assessment & Plan Assessment & Plan (1) Interstitial lung disease: Comment: CT scan 08/2024 Code(s): J84.9 - Interstitial pulmonary disease, unspecified Category: Medical Plan: check PFT (2) HTN (hypertension): Code(s): I10 - Essential (primary) hypertension Category: Medical Plan: CONTINUE LOSARTAN (3) CKD (chronic kidney disease), stage III: Comment: 09/2023 right kidney increase echogenicity, speckled calcification and nephrolithiasis unchanged from 2020, L kidney normal Code(s): N18.30 - Chronic kidney disease, stage 3 unspecified Category: Medical Plan: Avoid nephrotoxins monitor renal function (4) Glaucoma: Code(s): H40.9 - Unspecified glaucoma Category: Medical Plan: Patient is medically cleared for glaucoma surgery Orders: Orders Comprehensive [place]. Panel Fast 2 Months E55.9 - Vitamin D deficiency, unspecified, I10 - Essential (primary) hypertension, N18.30 - Chronic kidney disease, stage 3 unspecified Hemoglobin A1c 2 Months E55.9 - Vitamin D deficiency, unspecified, I10 - Essential (primary) hypertension, N18.30 - Chronic kidney disease, stage 3 unspecified PFT pulmonary function test Today J84.9 - Interstitial pulmonary disease, unspecified Complete Blood Count Auto Diff 2 Months E55.9 - Vitamin D deficiency, unspecified, I10 - Essential (primary) hypertension, N18.30 - Chronic kidney disease, stage 3 unspecified Lipid Panel 2 Months E55.9 - Vitamin D deficiency, unspecified, I10 - Essential (primary) hypertension, N18.30 - Chronic kidney disease, stage 3 unspecified TSH reflex Free T4 2 Months E55.9 - Vitamin D deficiency, unspecified, I10 - Essential (primary) hypertension, N18.30 - Chronic kidney disease, stage 3 unspecified Vitamin D 25-OH Total 2 Months E55.9 - Vitamin D deficiency, unspecified, I10 - Essential (primary) hypertension, N18.30 - Chronic kidney disease, stage 3 unspecified
[2025-02-06 12:59] VITALS: BP 112/70; PULSE 90; TEMP 36.7; O2SAT 94; BMI 23.3
--- OUTSIDE RECORDS SUMMARY | 2025-02-06 14:14 | XMS_ITS | Clinical Summary ---
Author Organization [facility] Facility Address [address] [place] [id number] Care Team Providers Care Emergency Services Director Name Role Phone Delores Aguilar MD Primary Care Provider [phone] Allergies Active Allergy Reactions Criticality Noted Date Comments Brimonidine 04/15/2022 Dorzolamide 04/15/2022 Latanoprost 04/15/2022 Paroxetine 04/15/2022 Timolol 04/15/2022 Medications losartan (COZAAR) 50 MG tablet TAKE ONE TABLET BY MOUTH ONCE DAILY 60 tablet 10/30/2022 Active Active Problems Problem Noted Date Diagnosed Date Stage 3a chronic kidney disease 04/15/2022 Family History Medical History Relation Comments Hypertension Father Dementia Mother Diabetes Mother Heart disease Mother A fib Hypertension Mother Kidney disease Mother as a child only Relation Status Comments Father Unknown Mother Alive Social History Tobacco Use Types Packs/Day Years Used Date Smoking Tobacco: Never Smokeless Tobacco: Never Alcohol Use Standard Drinks/Week Comments Yes 0 (1 standard drink = 0.6 oz pur e alcohol) Comments Unknown Sex and Gender Information Value Date Recorded Sex Assigned at Not on file Legal Sex Female 4:31 PM EST Gender Identity Not on file Sexual Orientation Not on file Last Filed Vital Signs Vital Sign Reading Time Taken Comments Blood Pressure 162/80 04/15/2022 1:09 PM EDT Pulse 84 04/15/2022 1:09 PM EDT Temperature - - Respiratory Rate - - Oxygen Saturation - - Inhaled Oxygen Concentration - - Weight 61.2 kg (135 lb) 04/15/2022 1:09 PM EDT Height 165.1 cm (5' 5 ) 08/05/2018 12:00 PM EDT Body Mass Index 22.47 08/05/2018 12:00 PM EDT Plan of Treatment Health Maintenance Due Date Last Done Comments Breast Cancer Screening 1955 Pneumococcal Vaccine: 65+ Ye ars (1 of 2 - PCV) 1960 Colorectal Cancer Screening: Annual FOBT 2003 Colorectal Cancer Screening: Colonoscopy 2003 Colorectal Cancer Screening: Sigmoidoscopy 2003 Influenza Vaccine (#1) 2024 Hepatitis B Vaccine Aged Out No longe r eligible based on patient's age to complete this topic Insurance [place]IC[place] [id number] [facility] 67 Care Teams Emergency Services Director Relationship Specialty Start Date End Date Delores Aguilar MD 1962 [facility] [place] [address] PCP - General Internal Medicine 04/08/22
== END 2025-02-06 13:56 | disposition home or self-care (01) ==
PROVIDERS: PCP Internal Medicine; Visit Provider Internal Medicine
DX: J84.9 Interstitial pulmonary disease, unspecified (principal); I10 Essential (primary) hypertension; N18.30 Chronic kidney disease, stage 3 unspecified; H40.9 Unspecified glaucoma

== ENCOUNTER → 2025-02-06 12:44 | Outpatient (BNVA) | payer MEDICARE, OTHER, SELFPAY | PROVIDERS: PCP Internal Medicine; Visit Provider Internal Medicine | DX: I12.9 Hypertensive chronic kidney disease with stage 1 through stage 4 chronic kidney disease, or unspecified chronic kidney disease (principal); N18.30 Chronic kidney disease, stage 3 unspecified; J84.9 Interstitial pulmonary disease, unspecified; H40.9 Unspecified glaucoma | CPT/HCPCS: 96127; 99212 ==

== ENCOUNTER 2025-03-24 08:52 | Outpatient (REF) | payer MEDICARE, OTHER, SELFPAY ==
--- NOTE | 2025-03-24 08:56 | PFT_ITS ---
Flows: FEV1: 107 % of predicted at 2.34 L FVC: 145 % of predicted at 4.11 L FEV1/FVC: 57 % Bronchodilator response: Present in small to medium airways only Volumes: Total lung capacity: 118 % of predicted at 5.89 L Residual volume: 96 % of predicted at 1.87 L Slow vital capacity: 135 % of predicted at 4.02 L Expiratory reserve volume: 224 % of predicted at 1.61 L Diffusion capacity: Normal Impression: Mild obstructive ventilatory defect with bronchodilator response present in small to medium airways only. MTDD
--- OUTSIDE RECORDS SUMMARY | 2025-03-24 08:58 | XMS_ITS | Clinical Summary ---
Author Organization [facility] Facility Address [address] [place] [address] Care Team Providers Care Deli Associate Name Role Phone Delores Aguilar MD Primary Care Provider [phone] Allergies Active Allergy Reactions Criticality Noted Date [...] Comments Breast Cancer Screening 1954 Pneumococcal Vaccine: 50+ Ye ars (1 of 2 - PCV) 1973 Colorectal Cancer Screening: Annual FOBT 2003 Colorectal Cancer Screening: Colonoscopy 2003 Colorectal Cancer Screening: Sigmoidoscopy 2003 Influenza Vaccine (Season Ended) 2025 Hepatitis B Vaccine Aged Out No longe r eligible based on patient's age to complete this topic Insurance Medicare [place] [id number] Medicare [facility] 66 Care Teams Deli Associate Relationship Specialty Start Date End Date Delores Aguilar MD 1962 [place] [address] PCP - General Internal Medicine 04/08/22
[2025-03-24 09:40] VITALS: PULSE 76; O2SAT 98
== END 2025-03-24 08:53 | disposition home or self-care (01) ==
LOC: HO.RESP 08:52
PROVIDERS: PCP Internal Medicine; Visit Provider Internal Medicine
DX: J84.9 Interstitial pulmonary disease, unspecified (principal)
CPT/HCPCS: 94010; 94640; 94727; 94729

== ENCOUNTER → 2025-03-24 08:56 | Outpatient (BNV) | payer MEDICARE, OTHER, SELFPAY | PROVIDERS: PCP Internal Medicine; Visit Provider Internal Medicine Pulmonary Disease | DX: J84.9 Interstitial pulmonary disease, unspecified (principal) | CPT/HCPCS: 94060; 94727; 94729 ==

== ENCOUNTER 2025-04-27 10:53 | Outpatient (REF) | payer MEDICARE, OTHER, SELFPAY ==
--- NOTE | ~2025-04-27 | XR_ITS ---
EXAMINATION: XR CHEST CLINICAL INFORMATION: J84.9 - Interstitial pulmonary disease, unspecified COMPARISON: None available. TECHNIQUE: 2 views of the chest were obtained. FINDINGS: The cardiac, hilar, and mediastinal contours are normal. Aortic mural calcifications. The lungs are diffusely hyperaerated, however clear bilaterally. There is no pneumothorax or pleural effusion. There is no focal osseous or soft tissue abnormality. Left axillary surgical clips noted. XR/XR chest 2V IMPRESSION: COPD. No active pulmonary disease. Electronically signed by: Sunil Chaparro MD 04/27/2025 01:00 PM EDT
--- OUTSIDE RECORDS SUMMARY | 2025-04-27 11:22 | XMS_ITS | Clinical Summary ---
Author Organization [facility] Facility Address [address] [place] [address] Care Team Providers Care Delphi Developer Name Role Phone Delores Aguilar MD Primary Care Provider [phone] Allergies Active Allergy Reactions Criticality Noted Date [...] age to complete this topic Insurance Medicare [place] [id number] Medicare [facility] 66 Care Teams Delphi Developer Relationship Specialty Start Date End Date Delores Aguilar MD 1962 [place] [address] PCP - General Internal Medicine 04/08/22
== END 2025-04-27 10:54 | disposition home or self-care (01) ==
LOC: HO.HMGCX 10:53
PROVIDERS: PCP Internal Medicine; Visit Provider Internal Medicine
DX: J84.9 Interstitial pulmonary disease, unspecified (principal)
CPT/HCPCS: 71046

== ENCOUNTER → 2025-04-27 10:56 | Outpatient (BNV) | payer MEDICARE, OTHER, SELFPAY | PROVIDERS: PCP Internal Medicine; Visit Provider Radiology Diagnostic Radiology | DX: J44.9 Chronic obstructive pulmonary disease, unspecified (principal) | CPT/HCPCS: 71046 ==

== ENCOUNTER 2025-05-02 08:42 | Outpatient (REF) | payer MEDICARE, OTHER, SELFPAY ==
--- OUTSIDE RECORDS SUMMARY | 2025-05-02 09:09 | XMS_ITS | Clinical Summary ---
Author Organization [facility] Facility Address [address] [place] [address] Care Team Providers Care Verse Writer Name Role Phone Delores Aguilar MD Primary Care Provider [phone] Allergies Active Allergy Reactions Criticality Noted Date [...] age to complete this topic Insurance Medicare [place] [id number] Medicare [facility] 66 Care Teams Verse Writer Relationship Specialty Start Date End Date Delores Aguilar MD [address] [place] [address] PCP - General Internal Medicine 04/08/22
[2025-05-02 10:20] LABS: MANUAL DIFF FLAG NO
[2025-05-02 10:48] LABS: Basophils Absolute Auto 0.1 X10*3/uL (0.0-0.2); Basophils Percent Auto 1.5 % (0-2); Eosinophils Absolute Auto 0.2 X10*3/uL (0.0-0.4); Eosinophils Percent Auto 4.2 % (0-4); Hematocrit 40.5 % (37.0-47.0); Hemoglobin 13.4 g/dl (12.0-16.0); Imm Gran Abs Auto 0.02 X10*3/uL (0.00-0.03); Imm Gran Pct Auto 0.4 % (0.0-0.4); Lymphocytes Absolute Auto 1.4 X10*3/uL (1.2-4.9); Lymphocytes Percent Auto 24.9 % (20-40); Mean Corpuscular HGB Conc 33.1 g/dl (31.0-35.0); Mean Corpuscular Hemoglobin 31.3 pg (27.0-33.0); Mean Corpuscular Volume 94.6 fL (80.0-98.0); Mean Platelet Volume 10.4 fL (9.4-12.3); Monocytes Absolute Auto 0.7 X10*3/uL (0.1-1.2); Monocytes Percent Auto 12.9 % (2-11); Neutrophils Absolute Auto 3.1 x10*3/uL (2.0-8.3); Neutrophils Percent Auto 56.1 % (45-73); Platelet Count 237 X10*3/uL (160-400); Red Blood Count 4.28 X10*6/uL (4.20-5.50); Red Cell Distribution Width 11.9 % (11.0-16.0); White Blood Count 5.4 X10*3/uL (4.8-10.8)
[2025-05-02 10:53] LABS: Estimated Average Glucose 120 mg/dL; Hemoglobin A1c % 5.8 % (<6.0)
[2025-05-02 11:52] LABS: Alanine Aminotransferase 18 U/L (0-31); Albumin Level 4.1 g/dL (3.5-5.0); Alkaline Phosphatase 56 U/L (39-117); Anion Gap 10 (12-20); Aspartate Amino Transferase 23 U/L (5-31); Bilirubin Total 0.8 mg/dL (0.0-1.0); Blood Urea Nitrogen 23 mg/dL (9-16); Calcium 8.9 mg/dL (8.4-10.2); Carbon Dioxide 28 mmol/L (22-29); Chloride 105 mmol/L (96-108); Cholesterol 226 mg/dL (<200); Estimated Glomerular Filt Rate 42; Glucose Fasting 92 mg/dL (60-99); HDL Cholesterol 58 mg/dL (>40); LDL Cholesterol Calculated 154 mg/dL (<100); Potassium 4.4 mmol/L (3.3-5.1); Sodium 139 mmol/L (135-145); Total Protein 6.8 g/dL (6.5-8.0); Triglycerides 71 mg/dL (<150)
[2025-05-02 12:14] LABS: TSH reflex Free T4 2.31 uIU/mL (0.32-4.0); Vitamin D 25-OH Total 35.2 ng/mL (>30)
== END 2025-05-02 08:43 | disposition home or self-care (01) ==
LOC: HO.HMGCLDS 08:42
PROVIDERS: PCP Internal Medicine; Visit Provider Internal Medicine
DX: N18.30 Chronic kidney disease, stage 3 unspecified (principal); I10 Essential (primary) hypertension; E55.9 Vitamin D deficiency, unspecified; Z13.1 Encounter for screening for diabetes mellitus
CPT/HCPCS: 36415; 80053; 80061; 82306; 83036; 84443; 85025

== ENCOUNTER 2025-05-08 13:42 | Outpatient (AMB) | payer MEDICARE, OTHER, SELFPAY ==
[2025-05-08 14:26] VITALS: BP 124/68; PULSE 89; RESP 18; TEMP 36.6; O2SAT 99; BMI 22.8
--- NOTE | 2025-05-08 14:26 | A.OFFVIS_ITS ---
Intake Vital Signs 05/08/25 14:26 Height 5 ft 4 in Weight 133 lb BMI 22.8 BP 124/68 Blood Pressure Location Rt brachial Position Sitting Respiration 18 Pulse 89 Pulse Source Pulse Oximeter Temp 97.8 F Temp Source Oral Pulse Oximetry (%) 99 Oxygen Delivery Method Room Air Intake Visit Reasons: SWV Allergies timolol [TIMOLOL] Allergy (Intermediate, Verified 05/08/25 14:31) HAND AND FEET TINGLING, red itchy eyes brimonidine [From ALPHAGAN P] Allergy (Mild, Verified 05/08/25 14:31) REDNESS AND DRYNESS brinzolamide [From AZOPT] Allergy (Mild, Verified 05/08/25 14:31) REDNESS AND DRYNESS dorzolamide [From COSOPT] Allergy (Mild, Verified 05/08/25 14:31) REDNESS AND DRYNESS latanoprost [From XALATAN] Allergy (Mild, Verified 05/08/25 14:31) REDNESS AND DRYNESS paroxetine Allergy (Unknown, Verified 05/08/25 14:31) sweating lisinopril Allergy (Verified 05/08/25 14:31) Cough Medication List - Last Reconciled 05/08/25 by Delores Aguilar MD losartan 50 mg PO DAILY HPI SWV HPI Details Initiated the conversation about Advanced Directives. Advanced Directives help? patients prepare for current and future decisions about their medical treatment? and place of care. Discussed with patient that it is a process where a patients? current condition and prognosis are reviewed, their wishes for information? regarding their illness are elicited, and likely medical dilemmas are presented? and options discussed. The form can be amended as needed, reviewed yearly and? make changes as needed IPPE/AWV ? year old presents? for her ? Annual? Wellness Visit, initial visit.? Medical / Social History Reviewed? Past Medical History ?Yes? . ? [place]? of Care / Care Team list updated ?Yes . ? Surgical/Hospitalization? History ?Yes . ? Current Medications? (including OTC and supplements) ?Yes . ? Family History ?Yes? . ? Tobacco? Control form ?Yes . ? AUDIT-C (Alcohol use) form? ?Yes . ? Illicit drug use in Social? History ?Yes . ? Current diagnosis of? depression? ?No ? Appropriate PHQ2/PHQ9? completed ?Yes . ? Data entered by ?Medical? Photocomposing Keyboard Operator and reviewed by provider ? Fall Risk ? Fall? History? Have you had any falls with? injury in the past year? ?No . ? Have you had two or more? falls in the past year? ?No . ? Fall Risk Assessment: ?No? falls in the past year . ? HRA filled out by? the patient, reviewed by Provider and scanned. ? IPPE/AWV ? Balance? Romberg? ?Yes . ? Tandem? walk ?Yes . ? Walk and? Turn ?Yes . ? Rise from? sit to stand ?Yes . ?Vision? Corrective? lens ?Yes ? Vision? screen ? Up-to-date, has an appointment [] for vision? screening and glaucoma screening ?Hearing? Whisper? test ?pass .? Initiated the conversation about Advanced Directives. Advanced Directives help? patients prepare for current and future decisions about their medical treatment? and place of care. Discussed with patient that it is a process where a patien ts? current condition and prognosis are reviewed, their wishes for information? regarding their illness are elicited, and likely medical dilemmas are presented? and options discussed. The form can be amended as needed, reviewed yearly and? make changes as needed Written? Plan?Completed. See Patient? Documents. [facility] Medical History (Updated 05/08/25 @ 16:04 by Delores Aguilar MD) Hyperlipidemia Interstitial lung disease Rib pain on right side Pain in left hip Knee pain, right Microscopic hematuria Annual physical exam Vitamin B 12 deficiency Vitamin D deficiency Lightheadedness Bilateral carotid bruits Cataract CKD (chronic kidney disease), stage III Breast CA Osteoporosis IBS (irritable bowel syndrome) HTN (hypertension) Surgical History H/O colonoscopy S/P lumpectomy of breast Family History Father Glaucoma HTN (hypertension) Mother HTN (hypertension) Dementia Diabetes mellitus Sister No problems noted. Sister No problems noted. Son No problems noted. Daughter No problems noted. Social History Housing: House Alcohol intake: current Alcohol intake frequency: holidays/special occasions only Patient Tobacco Use Status: Never used Tobacco Second Hand Smoke Exposure: Yes Current occupational status: retired Cognitive needs: No Hearing needs: No Vision needs: Yes Questionnaire Medicare Wellness Checkup [age] What gender do you identify with?: female During the past 4 weeks, how much have you been bothered by emotional problems such as feeling anxious, depressed, irritable, sad or downhearted, and blue?: not at all During the past 4 weeks, has your physical & emotional health limited your socia l activities with family, friends, neighbors, or groups?: not at all During the past 4 weeks, how much bodily pain have you generally had?: very mild pain During the past 4 weeks, was someone available to help you if you needed & wanted help?: yes, as much as I wanted During the past 4 weeks, what was the hardest physical activity you could do for at least 2 minutes?: moderate Can you get to places out of walking distance without help? (For eg., can you travel alone on buses, taxis or drive your car?): Yes Can you go shopping for groceries or clothes without someone's help?: Yes Can you prepare your own meals?: Yes Can you do your housework without help?: Yes Because of any health problems, do you need the help of another person with your personal care needs such as eating, bathing, dressing or getting around the house?: No Can you handle your own money without help?: Yes During the past 4 weeks, how would you rate your health in general?: good During the past 4 weeks how have things been going for you?: pretty well Are you having difficulties driving your car?: no Do you always fasten your seat belt when you are in a car?: yes, usually During past 4 weeks, have you been bothered by the following: never: Falling or dizzy when standing up, Sexual problems?, Trouble eating well?, Teeth or denture problems?, Problems using the telephone? and Tiredness or fatigue? Have you fallen 2 or more times in the past year?: No Are you afraid of falling?: No Are you a smoker?: no During the past 4 weeks, how many drinks of wine, beer, or other alcoholic kasandra erages did you have?: no alcohol at all Do you exercise for about 20 minutes 3 or more times a week?: yes, most of the time Have you been given information to help with the following?: no: Hazards in your house that might hurt you? and no: Keeping track of your medications? How often do you have trouble taking medicines the way you have been told to take them?: I always take medicine as prescribed How confident are you that you can control & manage most of your health problems?: very confident What is your race?: White Mini Mental State Exam (MMSE) Orientation What is the (year) (season) (date) (day) (month)?: year, season, date, day and month Where are we (state) (county) (town or city) (hospital) (floor)?: state, county, town or city, hospital/clinic and floor Registration Name of 3 unrelated objects clearly and slowly, then ask patient to repeat all 3 of them. (1st repeat determines score. Make sure they can repeat all three): object 1, object 2 and object 3 Attention & Calculation (CHOOSE ONE) Spell WORLD backwards (DLROW): 5 letters Recall Ask patient to repeat the 3 items from question #3.: object 1, object 2 and object 3 Language Show patient a wristwatch & ask what it is. Repeat for pencil.: watch and pencil Ask the patient to repeat the phrase 'No ifs, ands, or buts' after you.: correct Ask the patient to 'take a piece of paper with their right hand' 'fold paper in half' 'place paper on floor': take paper in right hand, fold paper in half and place paper on floor Print the sentence 'CLOSE YOUR EYES' on a piece. If patient actually closes eyes then score.: followed written direction Give patient a blank piece of paper & ask to write a sentence. Score if it contains a noun & verb.: sentence contains subject and verb Score Score: 29 PHQ-9 Over the last 2 weeks, how often have you been bothered by any of the following problems? 1. Little interest or pleasure in doing things: not at all 2. Feeling down, depressed, or hopeless: not at all 3. Trouble falling or staying asleep, or sleeping too much: not at all 4. Feeling tired or having little energy: not at all 5. Poor appetite or overeating: not at all 6. Feeling bad about yourself - or that you are a failure or have let yourself or your family down: not at all 7. Trouble concentrating on things, such as reading the newspaper or watching television: not at all 8. Moving or speaking so slowly that other people could have noticed. Or the opposite - being so fidgety or restless that you have been moving around a lot more than usual: not at all 9. Thoughts that you would be better off or of hurting yourself in some way: not at all Total score: 0 Depression Screening Interpretation: Negative Depression Screening Done: Yes 01455 - PHQ-9 Billing: Yes Source: Developed by Drs. Eddie Dickerson, Sepideh Armenta, Shukri Aguila and colleagues, with an educational michael from [employer]. Review of Systems Const All systems reviewed & are unremarkable except as noted in HPI and below Eyes Reports no additional complaints ENT Reports no additional complaints Card Reports no additional complaints Resp Reports no additional complaints GI Reports no additional complaints Reports no additional complaints Musc Reports no additional complaints Neuro Reports no additional complaints Physical Exam Vital Signs: Last Vital Signs Temp 97.8 F 05/08/25 14:26 Pulse 89 05/08/25 14:26 Resp 18 05/08/25 14:26 BP 124/68 05/08/25 14:26 Pulse Ox 99 05/08/25 14:26 Oxygen Delivery Method Room Air 05/08/25 14:26 BMI result Body Mass Index 22.8 Const General: no acute distress Eyes General: appearance normal, both eyes and all related structures Neck Neck: Yes no lymphadenopathy and Yes supple Resp Effort & Inspection: normal respiratory effort Auscultation: clear to auscultation bilaterally Cardio Rhythm: regular rhythm Heart sounds: S1 normal heart sound present and S2 normal heart sound present GI Inspection: Yes normal to inspection Palpation (GI): Soft to palpation Percussion: Yes normal to percussion Auscultation: normal bowel sounds Extrem General: Yes no clubbing, cyanosis or edema Immunizations pneumoc 20-sharri conj-dip cr(PF) 0.5 mL IM syringe Performing Provider: Delores Aguilar MD Performing Location: [facility] Administered by: VINAYAK Ireland on 05/08/25 15:35 Dose Route Admin Location Dispensed Lot Number Expiration Date [facility] Interim Controller 0.5 mL IM Left Deltoid 0.5 mL [id number] 01/27/26 5306-1876-57 Channel IQETH/PFIZER VIS Given Date VIS Provided VIS Publication Date 05/08/25 Single Vaccine 22 Eligibility Eligibility Date Funding Source Not [facility] Eligible 05/08/25 Private Assessment & Plan Assessment & Plan (1) Vitamin D deficiency: Code(s): E55.9 - Vitamin D deficiency, unspecified Plan: cont vit D (2) Vitamin B 12 deficiency: Code(s): E53.8 - Deficiency of other specified B group vitamins Plan: PATIENT WAS ADVISED TO RESTART TAKING VITAMIN B12 1000 UNITS A DAY. (3) CKD (chronic kidney disease), stage III: Comment: US 09/2023 right kidney increase echogenicity, speckled calcification and nephrolithiasis unchanged from 2020, L kidney normal Code(s): N18.30 - Chronic kidney disease, stage 3 unspecified Plan: Obtain follow-up renal ultrasound. Patient will be referred again to sales trainee and 24 hour urine collection for creatinine protein uric acid calcium will be obtained. Monitor renal function avoid nephrotoxins (4) Cataract: Code(s): H26.9 - Unspecified cataract Plan: Patient is medically cleared for cataract surgery (5) Annual physical exam: Code(s): Z00.00 - Encounter for general adult medical examination without abnormal findings Plan: Well-balanced diet regular physical activity discussed with the patient (6) Hyperlipidemia: Comment: Patient refused medication 04/2025 Code(s): E78.5 - Hyperlipidemia, unspecified Plan: Continue low-cholesterol diet patient refused medication Orders: Orders Vitamin B12 and Folate Today E53.8 - Deficiency of other specified B group vitamins, E55.9 - Vitamin D deficiency, unspecified Vitamin D 25-OH Total Today E53.8 - Deficiency of other specified B group vitamins, E55.9 - Vitamin D deficiency, unspecified Protein, 24 Hr Urine Group Today N18.30 - Chronic kidney disease, stage 3 unspecified Lipid Panel 1 Year E53.8 - Deficiency of other specified B group vitamins, E55.9 - Vitamin D deficiency, unspecified, E78.5 - Hyperlipidemia, unspecified, I10 - Essential (primary) hypertension, N18.30 - Chronic kidney disease, stage 3 unspecified US renal BI Today N18.30 - Chronic kidney disease, stage 3 unspecified Calcium, 24 Hr Ur Today N18.30 - Chronic kidney disease, stage 3 unspecified Creatinine Clearance Urine 24U Today N18.30 - Chronic kidney disease, stage 3 unspecified Citric Acid 24hr Urine Today N18.30 - Chronic kidney disease, stage 3 unspecified Uric Acid, 24Hr Urine Group Today N18.30 - Chronic kidney disease, stage 3 unspecified Pneumococcal 20 Immunization Today Z23 - Encounter for immunization Comprehensive [place]. Panel Fast 1 Year E53.8 - Deficiency of other specified B group vitamins, E55.9 - Vitamin D deficiency, unspecified, E78.5 - Hyperlipidemia, unspecified, I10 - Essential (primary) hypertension, N18.30 - Chronic kidney disease, stage 3 unspecified Complete Blood Count Auto Diff 1 Year E53.8 - Deficiency of other specified B group vitamins, E55.9 - Vitamin D deficiency, unspecified, E78.5 - Hyperlipidemia, unspecified, I10 - Essential (primary) hypertension, N18.30 - Chronic kidney disease, stage 3 unspecified Vitamin B12 and Folate 1 Year E53.8 - Deficiency of other specified B group vitamins, E55.9 - Vitamin D deficiency, unspecified, E78.5 - Hyperlipidemia, unspecified, I10 - Essential (primary) hypertension, N18.30 - Chronic kidney disease, stage 3 unspecified Vitamin D 25-OH (D2 and D3) 1 Year E53.8 - Deficiency of other specified B group vitamins, E55.9 - Vitamin D deficiency, unspecified, E78.5 - Hyperlipidemia, unspecified, I10 - Essential (primary) hypertension, N18.30 - Chronic kidney disease, stage 3 unspecified Referrals Nephrology Referral N18.30 - Chronic kidney disease, stage 3 unspecified Quality Reporting (2019) Depression/Bipolar (159/160/161/177) PHQ-9: Total score: 0 Coding Level of Care Code Medicare Subsequent (G0439) Diagnoses Vitamin D deficiency E55.9 Vitamin B 12 deficiency E53.8 CKD (chronic kidney disease), stage III N18.30 Cataract H26.9 Annual physical exam Z00.00 Hyperlipidemia E78.5 CPT Codes Advance Care Planning - Advance Care Planning discussion: On file, no changes ([id number]) Advance Care Planning - Time spent: 1-15 minutes, on File ([id number]) Additional Codes PHQ-9 - 93575 - PHQ-9 Billing: Yes ([id number]) Advance Care Planning Advance Care Planning discussion: On file, no changes Forms completed: Health Care Proxy Time spent: 1-15 minutes, on File Did not discuss due to Cultural/Spiritual beliefs: Yes
--- OUTSIDE RECORDS SUMMARY | 2025-05-08 15:32 | XMS_ITS | Clinical Summary ---
Author Organization [facility] Facility Address [address] [place] [address] Care Team Providers Care Portable Canteen Operator Name Role Phone Delores Aguilar MD Primary Care Provider Allergies Active Allergy Reactions Criticality Noted Date [...] age to complete this topic Insurance Medicare [place] [id number] Medicare [facility] 66 Care Teams Portable Canteen Operator Relationship Specialty Start Date End Date Delores Aguilar MD 1962 [place] [address] PCP - General Internal Medicine 04/08/22
== END 2025-05-08 16:02 | disposition home or self-care (01) ==
LOC: HO.HMCC 13:43
PROVIDERS: PCP Internal Medicine; Visit Provider Internal Medicine
DX: Z00.00 Encounter for general adult medical examination without abnormal findings (principal); E55.9 Vitamin D deficiency, unspecified; E53.8 Deficiency of other specified B group vitamins; N18.30 Chronic kidney disease, stage 3 unspecified; H26.9 Unspecified cataract; E78.5 Hyperlipidemia, unspecified; Z23 Encounter for immunization

== ENCOUNTER → 2025-05-08 13:42 | Outpatient (BNVA) | payer MEDICARE, OTHER, SELFPAY | PROVIDERS: PCP Internal Medicine; Visit Provider Internal Medicine | DX: Z00.00 Encounter for general adult medical examination without abnormal findings (principal); Z23 Encounter for immunization; E55.9 Vitamin D deficiency, unspecified; E53.8 Deficiency of other specified B group vitamins; H26.9 Unspecified cataract; E78.5 Hyperlipidemia, unspecified; N18.30 Chronic kidney disease, stage 3 unspecified | CPT/HCPCS: 90471; 90677; 96127 ==

== ENCOUNTER 2025-05-10 14:00 | Outpatient (REF) | payer MEDICARE, OTHER, SELFPAY ==
--- OUTSIDE RECORDS SUMMARY | 2025-05-10 16:00 | XMS_ITS | Clinical Summary ---
Author Organization [facility] Facility Address [address] [place] [address] Care Team Providers Care Dropper Tank Storage Name Role Phone Delores Aguilar MD Primary Care Provider [phone] Allergies Active Allergy Reactions Criticality Noted Date [...] age to complete this topic Insurance Medicare [place] [id number] [facility] 66 Care Teams Dropper Tank Storage Relationship Specialty Start Date End Date Delores Aguilar MD 1962 [place] [address] PCP - General Internal Medicine 04/08/22
[2025-05-10 17:01] LABS: Folate 10.5 ng/mL (> or = 4.0); Vitamin B12 877 pg/mL (200-900)
== END 2025-05-10 14:01 | disposition home or self-care (01) ==
LOC: HO.HMGCLDS 14:00
PROVIDERS: PCP Internal Medicine; Visit Provider Internal Medicine
DX: E53.8 Deficiency of other specified B group vitamins (principal); E55.9 Vitamin D deficiency, unspecified
CPT/HCPCS: 36415; 82306; 82607; 82746

== ENCOUNTER 2025-06-16 13:49 | Outpatient (REF) | payer MEDICARE, OTHER, SELFPAY ==
--- NOTE | ~2025-06-16 | US_ITS ---
EXAMINATION: US KIDNEY BILATERAL HISTORY: N18.30 - Chronic kidney disease, stage 3 unspecified TECHNIQUE: Real-time grayscale ultrasound imaging of the kidneys was performed and images were reviewed. COMPARISON: Correlation is made with a CT of the abdomen with contrast dated 10/26/2024. FINDINGS: Right kidney: The right kidney measures 9.1 x 5.0 x 5.0 cm. There are diffusely scattered cortical echogenic foci throughout the kidney likely related to the interfaces of innumerable tiny cysts as seen on CT. There is a cortical cyst at the upper pole measuring 12 mm. There is no hydronephrosis. Left Kidney: The left kidney measures 9.6 x 4.8 x 4.5 cm. There are diffusely scattered cortical echogenic foci throughout the kidney likely related to the interfaces of innumerable tiny cysts as seen on CT. There is a cortical cyst in the interpolar region measuring 11 x 9 x 9 mm. There is no hydronephrosis. US/US renal BI IMPRESSION: Diffusely scattered cortical echogenic foci throughout both kidneys, likely related to innumerable tiny cysts. Electronically signed by: Eddie Ta MD 06/16/2025 02:51 PM EDT
--- OUTSIDE RECORDS SUMMARY | 2025-06-16 13:50 | XMS_ITS | Patient Health Record ---
Author Organization [facility] Address [address] [place] [address] Care Team Providers Care Acute Care Nursing Assistant Name Role Phone Delores Aguilar MD Primary Care Provider Gaurav Burris Unavailable [phone] Allergies Allergen (clinical drug ingredient) Drug/Non Drug Allergy documented on EMR Reaction Allergy Type Onset Date Status brimonidine Alphagan P itchy eyes Drug Allergy Act clotilde dorzolamide / timolol Cosopt itchy eyes Drug Allergy Active paroxetine Paroxetine HCl sweating Drug Allergy A ctive timolol Timolol Maleate red, itchy eyes Drug Allergy Active acetaminophen Tylenol hot flashes Drug Allergy A ctive latanoprost Xalatan redness, itching,dry Drug Allergy Active Reason For Referral No Information Medications Medication SIG (Take, Route, Frequency, Duration) Notes Start Date End Date Status Vitamin D3 Unknown Multivitamin Active Zioptan 0.0015 % 1 drop into affected eye in the evening Ophthalmic Once a day Active Losartan Potassium 25 MG take 1 tablet b y mouth once daily Oral; Duration: 30 Active Xalatan 0.005 % 1 drop into affected eye in the evening Ophthalmic Once a day Unknown PreserVision AREDS U nknown Krill Oil Unknown Azopt 1 % 1 drop into affected eye Ophthalmic Three times a day Unknown CoQ-10 Unknown Vitamin K2 180 MCG Orally Daily Unknown Melatonin 3 MG Orally PRN Unkn own Social History Tobacco use other than smoking: Question Answer Notes Are you an other tobacco user? No Plan Of Treatment No Information Insurance Providers Payer Name Payer Address Payer Phone Subscriber Number Group Number Insured Name Patient Relationship to Insured Coverage Start Date Coverage End Date Medicare National [employer]t [employer] [address] [place] [id number] [id number] Kalpana Burden Self - patient is the insured [address] Services and Insurance [address] [place] [address] [phone] [id number] Kalpana Burden Self - patient is the insured Medical (General) History Medical History History ICD Code Arthritis Cancer Chicken pox Cataracts Diabetes (Gestational) Glaucoma High blood pressure Measles Mumps Scarlet fever Irritable bowel syndrome Hypertension Osteoporosis cervical cancer R lower lung ground-glass opacities Non anemic Vitamin B12 deficiency Surgical History Surgery Date(Month/Year) lumpectomy 08/18/07
--- OUTSIDE RECORDS SUMMARY | 2025-06-16 13:50 | XMS_ITS | Clinical Summary ---
Author Organization [facility] Facility Address [address] [place] [address] Care Team Providers Care Game Engineer Name Role Phone Delores Aguilar MD Primary Care Provider [phone] Allergies Active Allergy Reactions Criticality Noted Date [...] Cancer Screening: Sigmoidoscopy 2003 Influenza Vaccine (#1) 2025 Hepatitis B Vaccine Aged Out No longe r eligible based on patient's age to complete this topic Insurance Medicare [place] [id number] Medicare [facility] 66 Care Teams Game Engineer Relationship Specialty Start Date End Date Delores Aguilar MD 1962 [place] [place] [address] PCP - General Internal Medicine 04/08/22
== END 2025-06-16 13:50 | disposition home or self-care (01) ==
LOC: HO.HMGCX 13:49
PROVIDERS: PCP Internal Medicine; Visit Provider Internal Medicine
DX: N18.30 Chronic kidney disease, stage 3 unspecified (principal)
CPT/HCPCS: 76775

== ENCOUNTER → 2025-06-16 13:50 | Outpatient (BNV) | payer MEDICARE, OTHER, SELFPAY | PROVIDERS: PCP Internal Medicine; Visit Provider Radiology Diagnostic Radiology | DX: N18.30 Chronic kidney disease, stage 3 unspecified (principal) | CPT/HCPCS: 76775 ==

== ENCOUNTER 2025-06-18 08:05 | Outpatient (REF) | payer MEDICARE, OTHER, SELFPAY ==
--- OUTSIDE RECORDS SUMMARY | 2025-06-19 12:14 | XMS_ITS | Clinical Summary ---
Author Organization [facility] Address [address] [place] [address] Care Team Providers Care Seed Cone Picker Name Role Phone Delores Aguilar MD Primary Care Provider [phone] Allergies Active Allergy Reactions Criticality Noted Date [...] age to complete this topic Insurance Medicare [place] [id number] Medicare [facility] 66 Care Teams Seed Cone Picker Relationship Specialty Start Date End Date Delores Aguilar MD 1962 [facility] [place] [address] PCP - General Internal Medicine 04/08/22
--- OUTSIDE RECORDS SUMMARY | 2025-06-19 12:14 | XMS_ITS | Patient Health Record ---
Author Organization [facility] Address [address] [place] [address] Care Team Providers Care Supervisor Model Making Name Role Phone Delores Aguilar MD Primary Care Provider Gaurav Burris Unavailable [phone] Allergies Allergen (clinical drug ingredient) Drug/Non Drug [...] [employer] [address] [place] [address] [id number] Kalpana Burden Self - patient is the insured [address] Services and Insurance [address] [place] [address] [phone] [id number] Kalpana Burden Self - patient is the insured Medical (General) History Medical History History ICD Code Arthritis Cancer Chicken pox Cataracts Diabetes (Gestational) Glaucoma High blood pressure Measles Mumps Scarlet fever Irritable bowel syndrome Hypertension Osteoporosis cervical cancer R lower lung ground-glass opacities Non anemic Vitamin B12 deficiency Surgical History Surgery Date(Month/Year) lumpectomy 08/18/07
[2025-06-19 14:46] LABS: Creatinine, mg/dL 44.43
[2025-06-19 14:48] LABS: Total Volume 24 Hour Urine 1725 mL
[2025-06-19 14:51] LABS: Creatinine, mg/dL 43.97; Uric Acid, mg/dL 15.3 mg/dL
[2025-06-20 07:11] LABS: Total Volume 24 Hour Urine 1725 mL
[2025-06-20 11:59] LABS: Creatinine (CrCl) 1.26 mg/dL (0.5-1.4)
[2025-06-21 21:28] LABS: Calcium/Creatinine Ratio 138 mg/g creat (30-275); Creatinine 24Hr Urine 0.81 g/24 h (0.50-2.15)
[2025-06-26 08:04] LABS: 24hr Urine Total Volume 1725 mL; Citric Acid, 24hr Urine 259 mg/24 h (100-1300); Citric Acid/Creat Ratio 24U 311 mg/g creat (180-1070); Creatinine, 24U 0.83 g/24 h (0.50-2.15)
== END 2025-06-18 08:06 | disposition home or self-care (01) ==
LOC: HO.HMGCLNP 08:05
PROVIDERS: PCP Internal Medicine; Visit Provider Internal Medicine
DX: N18.30 Chronic kidney disease, stage 3 unspecified (principal)
CPT/HCPCS: 82340; 82507; 82575; 84156; 84560

== ENCOUNTER 2025-06-20 07:36 | Outpatient (REF) | payer MEDICARE, OTHER, SELFPAY ==
[2025-06-20 11:07] LABS: Estimated Glomerular Filt Rate 42
== END 2025-06-20 07:37 | disposition home or self-care (01) ==
LOC: HO.HMGCLDS 07:36
PROVIDERS: PCP Internal Medicine; Visit Provider Internal Medicine
DX: N18.30 Chronic kidney disease, stage 3 unspecified (principal)
CPT/HCPCS: 36415; 82565

== ENCOUNTER 2025-07-05 10:16 | Outpatient (AMB) | payer MEDICARE, OTHER, SELFPAY ==
--- NOTE | 2025-07-05 10:18 | HO.NEPHOV ---
Vital Signs 07/05/25 10:19 Height 5 ft 4 in Weight 135 lb BMI 23.2 BP 122/70 Blood Pressure Location Lt brachial Position Sitting Pulse 84 Pulse Source Pulse Oximeter Pulse Oximetry (%) 97 Oxygen Delivery Method Room Air Intake Visit Reasons: INP: CKD Stg 3/ Conf Concrete Finishing Machine Operator Required: No Accompanied by: Self / Same As Patient Allergies timolol (TIMOLOL) Allergy (Intermediate, Verified 07/05/25 10:21) HAND AND FEET TINGLING, red itchy eyes brimonidine (From ALPHAGAN P) Allergy (Mild, Verified 07/05/25 10:21) REDNESS AND DRYNESS brinzolamide (From AZOPT) Allergy (Mild, Verified 07/05/25 10:21) REDNESS AND DRYNESS dorzolamide (From COSOPT) Allergy (Mild, Verified 07/05/25 10:21) REDNESS AND DRYNESS latanoprost (From XALATAN) Allergy (Mild, Verified 07/05/25 10:21) REDNESS AND DRYNESS paroxetine Allergy (Unknown, Verified 07/05/25 10:21) sweating lisinopril Allergy (Verified 07/05/25 10:21) Cough Medication List - Last Reconciled 07/05/25 by Krishna Castillo MD losartan 50 mg PO DAILY prednisolone acetate 1% drps ophthalmic (eye) HPI Comments Details: The patient is a 69-year-old female presenting for management of stage 3 chronic kidney disease The patient has been diagnosed with stage 3 chronic kidney disease, with a recent glomerular filtration rate (GFR) of 42 mL/min/1.73 m?. A recent ultrasound showed multiple small cysts on both kidneys, but no significant abnormalities were noted. A 24-hour urine test was negative for significant proteinuria or hematuria. The patient has a history of glaucoma affecting both eyes and is under regular ophthalmologic care. She also has a history of breast cancer diagnosed in 2006, with a recent concern of a new lump pending evaluation. The patient has a long-standing history of hypertension, managed with losartan after switching from lisinopril due to a persistent cough. Her blood pressure has been generally well-controlled, with home readings ranging from 115/95 mmHg to 112/60 mmHg. She denies any urinary symptoms, swelling in the legs, or respiratory issues. A recent pulmonary function test was normal, ruling out previously suspected COPD. The patient has a history of seborrheic keratosis, with a lesion on her face treated with liquid nitrogen, though it persists. [facility] Medical History (Updated 07/05/25 @ 10:25 by Krishna Castillo MD) Hyperlipidemia Interstitial lung disease Rib pain on right side Pain in left hip Knee pain, right Microscopic hematuria Annual physical exam Vitamin B 12 deficiency Vitamin D deficiency Lightheadedness Bilateral carotid bruits Cataract CKD (chronic kidney disease), stage III Breast CA Osteoporosis IBS (irritable bowel syndrome) HTN (hypertension) Surgical History H/O colonoscopy S/P lumpectomy of breast Family History Father Glaucoma HTN (hypertension) Mother HTN (hypertension) Dementia Diabetes mellitus Sister No problems noted. Sister No problems noted. Son No problems noted. Daughter No problems noted. Social History Housing: House Alcohol intake: current Alcohol intake frequency: holidays/special occasions only Patient Tobacco Use Status: Never used Tobacco Second Hand Smoke Exposure: Yes Current occupational status: retired Cognitive needs: No Hearing needs: No Vision needs: Yes Review of Systems Const Denies anorexia, Denies fever(s) and Denies weakness Eyes Denies blurry vision Card Denies no additional complaints and Denies dyspnea Resp Reports no additional complaints, Reports cough and Denies dyspnea GI Denies melena and Denies diarrhea Denies hematuria Musc Denies tingling Skin/Breast Denies rash Neuro Denies focal weakness, Denies tingling, Denies tremor(s) and Denies weakness Physical Exam Vital Signs: Last Vital Signs Pulse 84 07/05/25 10:19 BP 122/70 07/05/25 10:19 Pulse Ox 97 07/05/25 10:19 Oxygen Delivery Method Room Air 07/05/25 10:19 BMI result Body Mass Index 23.2 Comfortable Neck supple no JVD. Lungs entry equal no rales. Heart S1-S2 heard no gallop or rub. Abdomen soft nontender. Neuro alert awake oriented. No asterixis. Extremities no edema. Results Reviewed Results Reviewed: Renal Ultrasound : May 2025 Right kidney: The right kidney measures 9.1 x 5.0 x 5.0 cm. There are diffusely scattered cortical echogenic foci throughout the kidney likely related to the interfaces of innumerable tiny cysts as seen on CT. There is a cortical cyst at the upper pole measuring 12 mm. There is no hydronephrosis. Left Kidney: The left kidney measures 9.6 x 4.8 x 4.5 cm. There are diffusely scattered cortical echogenic foci throughout the kidney likely related to the interfaces of innumerable tiny cysts as seen on CT. There is a cortical cyst in the interpolar region measuring 11 x 9 x 9 mm. There is no hydronephrosis. US/US renal BI IMPRESSION: Diffusely scattered cortical echogenic foci throughout both kidneys, likely related to innumerable tiny cysts. Electronically signed by: Eddie Ta MD 06/16/2025 02:51 PM EDT SERUM [facility]ATIN[facility] TREND Nephrology Results: Hgb, (12.0-16.0) 13.4 g/dl 05/02/25 WBC, (4.8-10.8) 5.4 X10*3/uL 05/02/25 Plt Count, (160-400) 237 X10*3/uL 05/02/25 Sodium, (135-145) 139 mmol/L 05/02/25 Potassium, (3.3-5.1) 4.4 mmol/L 05/02/25 Chloride, (96-108) 105 mmol/L 05/02/25 Carbon Dioxide, (22-29) 28 mmol/L 05/02/25 BUN, (9-16) 23 mg/dL H 05/02/25 Creatinine, (0.5-1.4) 1.26 mg/dL 06/20/25 Calcium, (8.4-10.2) 8.9 mg/dL Δ 05/02/25 Renal US 06/16/25 Assessment & Plan Assessment & Plan (1) HTN (hypertension): Code(s): I10 - Essential (primary) hypertension Category: Medical (2) CKD (chronic kidney disease), stage III: Comment: US 09/2023 right kidney increase echogenicity, speckled calcification and nephrolithiasis unchanged from 2020, L kidney normal Code(s): N18.30 - Chronic kidney disease, stage 3 unspecified Category: Medical (3) Renal cyst: Code(s): N28.1 - Cyst of kidney, acquired Category: Medical Plan 69 yr old woman with Stable CKD most likely due to hypertensive nephrosclerosis Urine is benign. No protein or blood. AGN/AIN seem unlikely Sonogram- NO obstruction Creatinine has been stable around 1.25 for the past 3 years. BP well controlled. No evidence of anemia Plan; Keep Losartan Maintain BP < 130/80 Avoid nephrotoxins includings NSAIDS Increase PO fluid intake Follow renal function Q 3- 6 months Answered all her questions and reassured Orders: Orders Creatinine Urine 3 Months I10 - Essential (primary) hypertension, N18.30 - Chronic kidney disease, stage 3 unspecified Basic Metabolic Panel 3 Months I10 - Essential (primary) hypertension, N18.30 - Chronic kidney disease, stage 3 unspecified Total Protein Urine Random 3 Months I10 - Essential (primary) hypertension, N18.30 - Chronic kidney disease, stage 3 unspecified UA and rflx microscopic 3 Months I10 - Essential (primary) hypertension, N18.30 - Chronic kidney disease, stage 3 unspecified Parathyroid Hormone Intact 3 Months I10 - Essential (primary) hypertension, N18.30 - Chronic kidney disease, stage 3 unspecified Coding Level of Care Code New Pt Level 4 (50107) Diagnoses HTN (hypertension) I10 CKD (chronic kidney disease), stage III N18.30 Renal cyst N28.1
[2025-07-05 10:19] VITALS: BP 122/70; PULSE 84; O2SAT 97; BMI 23.2
--- OUTSIDE RECORDS SUMMARY | 2025-07-05 10:51 | XMS_ITS | Patient Health Record ---
Author Organization [facility] Address [address] [facility] [place] [address] Care Team Providers Care Submarine Operator Name Role Phone Delores Aguilar MD Primary Care Provider Gaurav Burris Unavailable [phone] Allergies Allergen (clinical drug ingredient) Drug/Non Drug [...] [employer] [address] [place] [address] [id number] Kalpana Burden Self - patient is the insured [address] Services and Insurance [address] [place] [address] [id number] [phone] [id number] Kalpana Burden Self - patient is the insured Medical (General) History Medical History History ICD Code Arthritis Cancer Chicken pox Cataracts Diabetes (Gestational) Glaucoma High blood pressure Measles Mumps Scarlet fever Irritable bowel syndrome Hypertension Osteoporosis cervical cancer R lower lung ground-glass opacities Non anemic Vitamin B12 deficiency Surgical History Surgery Date(Month/Year) lumpectomy 08/18/07
--- OUTSIDE RECORDS SUMMARY | 2025-07-05 10:51 | XMS_ITS | Clinical Summary ---
Author Organization [facility] Address [address] [place] [address] Care Team Providers Care Bin Worker Name Role Phone Delores Aguilar MD Primary Care Provider [phone] Allergies Active Allergy Reactions Criticality Noted Date [...] age to complete this topic Insurance Medicare [place] [id number] Medicare [facility] 66 Care Teams Bin Worker Relationship Specialty Start Date End Date Delores Aguilar MD 1962 [facility] [place] [address] PCP - General Internal Medicine 04/08/22
== END 2025-07-05 10:41 | disposition home or self-care (01) ==
LOC: HO.HKAS 10:16
PROVIDERS: PCP Internal Medicine; Referring Provider Internal Medicine; Visit Provider Internal Medicine Hypertension Specialist
DX: I10 Essential (primary) hypertension (principal); N18.30 Chronic kidney disease, stage 3 unspecified; N28.1 Cyst of kidney, acquired
CPT/HCPCS: 99204

== ENCOUNTER → 2025-07-05 10:16 | Outpatient (BNVA) | payer MEDICARE, OTHER, SELFPAY | PROVIDERS: PCP Internal Medicine; Referring Provider Internal Medicine; Visit Provider Internal Medicine Hypertension Specialist | DX: I12.9 Hypertensive chronic kidney disease with stage 1 through stage 4 chronic kidney disease, or unspecified chronic kidney disease (principal); N18.30 Chronic kidney disease, stage 3 unspecified; N28.1 Cyst of kidney, acquired | CPT/HCPCS: 99202 ==

== ENCOUNTER 2025-07-13 08:42 | Outpatient (REF) | payer MEDICARE, OTHER, SELFPAY ==
--- NOTE | ~2025-07-13 | MM_ITS ---
EXAMINATION: MM DIAGNOSTIC DIGITAL BREAST TOMOSYNTHESIS, BILATERAL Limited left breast ultrasound. CLINICAL INFORMATION: History of left breast cancer status post lumpectomy 2006. 2 left breast palpable lumps. COMPARISON: Mammography: Comparison is made with relevant prior exams. TECHNIQUE: Digital breast mammography with tomosynthesis is performed in both the craniocaudal and mediolateral oblique views along with computer-aided detection (CAD). FINDINGS: There are scattered areas of fibroglandular density (ACR BI-RADS breast composition Category b). Right: There are no significant masses, abnormal calcifications, or other abnormalities. Left: Palpable lump noted by BB marker in the upper central breast with an underlying no spiculated irregular mass. BB palpable marker in the upper outer breast anterior depth without underlying abnormal finding. Postsurgical changes are stable. No suspicious calcifications or other abnormal findings. Targeted color Doppler ultrasound scanning in the area of the patient's palpable lump in the upper outer quadrant posterior depth demonstrates A solid irregular mass at 11:00 8 cm from the nipple measuring 7 x 6 x 7 mm correlating with the patient's palpable lump. There is internal vascular flow. Targeted color Doppler ultrasound scanning in the patient's palpable lump upper outer quadrant middle to anterior depth demonstrate Normal fibroglandular breast tissue. There is no suspicious abnormal finding at the upper outer anterior palpable lump. Targeted color Doppler ultrasound scanning in the left axilla demonstrates normal axillary tissue. There is no abnormal finding. Results are provided to the patient at time of visit by the technologist. MM/MM tomosynthesis diagnostic BI IMPRESSION: Right: Negative. Left: 1. Solid irregular mass at 11:00 8 cm from the nipple correlating with patient's palpable lump. Recommend ultrasound guided core needle biopsy at this time for histology confirmation. The findings and recommendations were discussed with the patient the procedure will be scheduled. 2. No mammographic or sonographic abnormal finding in the upper outer left breast anterior depth at patient second site of palpable lump. Recommend clinical evaluation follow-up. ASSESSMENT: BI-RADS BI-RADS 4 - Suspicious finding RECOMMENDATION: Biopsy recommended Electronically signed by: Franci Martinez DO 07/13/2025 10:53 AM EDT
--- OUTSIDE RECORDS SUMMARY | 2025-07-13 08:55 | XMS_ITS | Clinical Summary ---
Author Organization [facility] Address [address] [place] [address] Care Team Providers Care Bill Peddler Name Role Phone Delores Aguilar MD Primary Care Provider [phone] Allergies Active Allergy Reactions Criticality Noted Date [...] age to complete this topic Insurance Medicare [place] [id number] Medicare [facility] 66 Care Teams Bill Peddler Relationship Specialty Start Date End Date Delores Aguilar MD 1962 [place] [address] PCP - General Internal Medicine 04/08/22
--- OUTSIDE RECORDS SUMMARY | 2025-07-13 08:56 | XMS_ITS | Patient Health Record ---
Author Organization [facility] Address [address] [facility] [place] [address] Care Team Providers Care Corn Sheller Operator Name Role Phone Deolres Aguilar MD Primary Care Provider Gaurav Burris Unavailable [phone] Allergies Allergen (clinical drug ingredient) Drug/Non Drug [...] [employer] [address] [place] [address] [id number] Kalpana Burden Self - patient is the insured [address] Services and Insurance [address] [place] [address] [id number] [id number] Kalpana Burden Self - patient is the insured Medical (General) History Medical History History ICD Code Arthritis Cancer Chicken pox Cataracts Diabetes (Gestational) Glaucoma High blood pressure Measles Mumps Scarlet fever Irritable bowel syndrome Hypertension Osteoporosis cervical cancer R lower lung ground-glass opacities Non anemic Vitamin B12 deficiency Surgical History Surgery Date(Month/Year) lumpectomy 08/18/07
== END 2025-07-13 08:43 | disposition home or self-care (01) ==
LOC: HO.MAMMO 08:42
PROVIDERS: PCP Internal Medicine; Visit Provider Internal Medicine
DX: N63.22 Unspecified lump in the left breast, upper inner quadrant (principal)
CPT/HCPCS: 76642; 77062; 77066

== ENCOUNTER → 2025-07-13 09:30 | Outpatient (BNV) | payer MEDICARE, OTHER, SELFPAY | PROVIDERS: PCP Internal Medicine; Visit Provider Internal Medicine | DX: N63.12 Unspecified lump in the right breast, upper inner quadrant (principal); Z85.3 Personal history of malignant neoplasm of breast | CPT/HCPCS: 76642; 77066; G0279 ==

== ENCOUNTER 2025-07-19 08:18 | Outpatient (AMB) | payer MEDICARE, OTHER, SELFPAY ==
--- NOTE | 2025-07-19 08:23 | MHC.OFFVIS ---
Vital Signs 07/19/25 08:33 Height 5 ft 4 in Weight 135 lb BMI 23.2 BP 142/84 H Blood Pressure Location Lt brachial Position Sitting Pulse 95 Intake Visit Reasons: (L) Breast US bx 11 O'Clock mass Intake Note: Patient is seen in office for CONSULT, Lt br us bx for 11o'clock mass. Patient c/o: reports hx of dense breasts, feels lumps all the time, denies redness, tenderness, nipple discharge. Hx of Lt breast CA in 2006. Was treated with 30days of radiation. Mammo & Lt br US: 07-13-2025 Otr Truck Driver Required: No Accompanied by: Self / Same As Patient Allergies timolol (TIMOLOL) Allergy (Intermediate, Verified 07/19/25 08:31) HAND AND FEET TINGLING, red itchy eyes brimonidine (From ALPHAGAN P) Allergy (Mild, Verified 07/19/25 08:31) REDNESS AND DRYNESS brinzolamide (From AZOPT) Allergy (Mild, Verified 07/19/25 08:31) REDNESS AND DRYNESS dorzolamide (From COSOPT) Allergy (Mild, Verified 07/19/25 08:31) REDNESS AND DRYNESS latanoprost (From XALATAN) Allergy (Mild, Verified 07/19/25 08:31) REDNESS AND DRYNESS paroxetine Allergy (Unknown, Verified 07/19/25 08:31) sweating lisinopril Allergy (Verified 07/19/25 08:31) Cough Medication List - Last Reconciled 07/19/25 by Santosh Jarrett MD losartan 50 mg PO DAILY prednisolone acetate 1% drps ophthalmic (eye) HPI HPI (L) Breast US bx 11 O'Clock mass: Details: [age] year old female referred for a left breast mass. She says that sometime about 3-4 weeks ago, she had noted a lump on the left breast on the inner upper quadrant. She mentioned this has primary care physician and she underwent imaging studies. Her ultrasound and mammogram showed a solid irregular mass at the 11 o'clock position, 8 cm from the nipple. An ultrasound-guided needle biopsy had been recommended. She her menarche at the age of 13. She says she had her 1st at the age of 25. She had 2 pregnancies but 2 of these were miscarriages. She had menopause in her early 50s She denies any family history of breast cancer. However, she says she had breast cancer in 2007 underwent lumpectomy and sentinel node biopsy for this. She said that the lymph nodes were negative. She had undergone radiation for the left breast but no chemotherapy. [facility] Medical History Left breast mass Left breast mass (~07/18/25) Hyperlipidemia Interstitial lung disease Rib pain on right side Pain in left hip Knee pain, right Microscopic hematuria Annual physical exam Vitamin B 12 deficiency Vitamin D deficiency Lightheadedness Bilateral carotid bruits Cataract CKD (chronic kidney disease), stage III Breast CA Osteoporosis IBS (irritable bowel syndrome) HTN (hypertension) Surgical History H/O colonoscopy S/P lumpectomy of breast Family History Father Glaucoma HTN (hypertension) Mother HTN (hypertension) Dementia Diabetes mellitus Sister No problems noted. Sister No problems noted. Son No problems noted. Daughter No problems noted. Social History Housing: House Alcohol intake: current Alcohol intake frequency: holidays/special occasions only Patient Tobacco Use Status: Never used Tobacco Second Hand Smoke Exposure: Yes Current occupational status: retired Cognitive needs: No Hearing needs: No Vision needs: Yes Review of Systems Const Denies chills and Denies fever(s) Card Denies chest pain, Denies dyspnea and Denies dyspnea on exertion Resp Denies cough, Denies dyspnea and Denies dyspnea on exertion GI Denies hematochezia and Denies change in bowel habits Denies hematuria Musc Denies back pain and Denies limited range of motion Neuro Denies focal weakness and Denies convulsions Psych Denies depression and Denies mood swings Physical Exam Vital Signs: Last Vital Signs Pulse 95 07/19/25 08:33 BMI result Body Mass Index 23.2 Const General: comfortable and no acute distress Orientation/consciousness: patient oriented x3 Neck Neck: Yes no lymphadenopathy Chest Other: Vague mass, small, at the inner upper quadrant of the left breast, mobile, no axillary lymphadenopathy, no nipple or skin changes Resp Auscultation: clear to auscultation bilaterally Cardio Rhythm: regular rhythm GI Palpation (GI): Soft to palpation, nontender and no guarding Neuro General: patient oriented x3 Assessment & Plan Assessment & Plan (1) Left breast mass: Code(s): N63.20 - Unspecified lump in the left breast, unspecified quadrant Category: Medical Plan: She has this left breast mass as described above. An ultrasound guided biopsy had been recommended by the radiologist. I explained to her the technique of this procedure I will see her again in the office after her biopsy. She does have a personal history of breast cancer in 2006 on the left breast as well. Orders: Orders US breast ndl core biopsy LT 07/18/25 N63.20 - Unspecified lump in the left breast, unspecified quadrant Coding Level of Care Code New Pt Level 3 (73146) Diagnoses Left breast mass N63.20
[2025-07-19 08:33] VITALS: BP 142/84; PULSE 95; BMI 23.2
--- OUTSIDE RECORDS SUMMARY | 2025-07-19 08:50 | XMS_ITS | Clinical Summary ---
Author Organization [facility] Address [address] [place] [address] Care Team Providers Care Menagerie Superintendent Name Role Phone Delores Aguilar MD Primary Care Provider [phone] Allergies Active Allergy Reactions Criticality Noted Date [...] age to complete this topic Insurance Medicare [place] [id number] Medicare [facility] 66 Care Teams Menagerie Superintendent Relationship Specialty Start Date End Date Delores Aguilar MD 1962 [place] [address] PCP - General Internal Medicine 04/08/22
--- OUTSIDE RECORDS SUMMARY | 2025-07-19 08:50 | XMS_ITS | Patient Health Record ---
Author Organization [facility] Address [address] [facility] [place] [address] Care Team Providers Care Powerbuilder Name Role Phone Delores Aguilar MD Primary Care Provider Gaurav Burris Unavailable [phone] Allergies Allergen (clinical drug ingredient) Drug/Non Drug [...] [employer] [address] [place] [address] [id number] Kalpana Burden Self - patient is the insured [address] Services and Insurance [address] [place] [address] [id number] [id number] Kalpana Burden Self - patient is the insured Medical (General) History Medical History History ICD Code Arthritis Cancer Chicken pox Cataracts Diabetes (Gestational) Glaucoma High blood pressure Measles Mumps Scarlet fever Irritable bowel syndrome Hypertension Osteoporosis cervical cancer R lower lung ground-glass opacities Non anemic Vitamin B12 deficiency Surgical History Surgery Date(Month/Year) lumpectomy 08/18/07
== END 2025-07-19 08:50 | disposition home or self-care (01) ==
LOC: HO.HGS 08:19
PROVIDERS: PCP Internal Medicine; Visit Provider Surgery
DX: N63.20 Unspecified lump in the left breast, unspecified quadrant (principal)
CPT/HCPCS: 99203

== ENCOUNTER → 2025-07-19 08:18 | Outpatient (BNVA) | payer MEDICARE, OTHER, SELFPAY | PROVIDERS: PCP Internal Medicine; Visit Provider Surgery | DX: N63.22 Unspecified lump in the left breast, upper inner quadrant (principal) | CPT/HCPCS: 99202 ==

== ENCOUNTER 2025-07-25 07:39 | Outpatient (REF) | payer MEDICARE, OTHER, SELFPAY ==
--- NOTE | ~2025-07-25 | MM_ITS ---
EXAMINATION/PROCEDURE: 1. ULTRASOUND GUIDED CORE BIOPSY BREAST, LEFT 2. POST PROCEDURE DIGITAL MAMMOGRAM, LEFT CLINICAL INFORMATION: Patient is status post diagnostic mammogram/ultrasound workup on July 13, 2025. Ultrasound-guided needle core biopsy was recommended for left breast 0.7 x 0.6 x 0.7 cm solid mass at 11 o'clock position at 8 cm from the nipple. Patient has personal history of left lumpectomy for breast cancer in 2006. COMPARISON: Diagnostic mammogram/ultrasound on July 13, 2025 FINDINGS: Proper informed consent is obtained from the patient after discussion of the procedure, potential risks and complications, and alternatives. Patient was given an opportunity for questions. The patient appeared to understand. The patient consented to the procedure and signed the consent form. GUIDANCE: Ultrasound-guided; aseptic technique. LESION: 0.8 x 0.6 x 0.6 cm solid mass at 11 o'clock position at 8 cm from the nipple. APPROACH: Lateral. ANESTHESIA: 8 cc of lidocaine 1% buffered with Sodium Bicarbonate 8.4% (9cc: 1cc). NEEDLE: 14-gauge Bard Marquee biopsy device with co-axial introducer. CORES: 3. CLIP: Mammotome shape: butterfly. POST PROCEDURE UNILATERAL DIGITAL MAMMOGRAM: The post biopsy mammogram is performed in separate room using separate digital mammography equipment from the biopsy procedure. ML 90 degrees, MLO and CC views are obtained. The butterfly shaped clip marker is in satisfactory position. No gross hematoma. The patient tolerated the procedure well. No immediate complications. Home instructions reviewed with the patient. Final pathology results are pending. MM/MM diagnostic mammo unilat LT IMPRESSION: 1. Status post ultrasound-guided core biopsy left breast solid mass at 11 o'clock position at 8 cm from the nipple. 2. Clip placed: Mammotome shape: butterfly. 3. Pathology pending. An addendum report will be issued. Electronically signed by: Luis Fernando Rosenberg MD 07/25/2025 11:31 AM EDT
--- OUTSIDE RECORDS SUMMARY | 2025-07-25 07:47 | XMS_ITS | Patient Health Record ---
Author Organization [facility] Address [address] [place] [address] Care Team Providers Care Industrial Workers Name Role Phone Delores Aguilar MD Primary Care Provider Gaurav Burris Unavailable [phone] Allergies Allergen (clinical drug ingredient) Drug/Non Drug [...] [employer] [address] [place] [address] [id number] Kalpana Burden Self - patient is the insured [address] Services and Insurance [address] [place] [address] [id number] [id number] Kalpana Burden Self - patient is the insured Medical (General) History Medical History History ICD Code Arthritis Cancer Chicken pox Cataracts Diabetes (Gestational) Glaucoma High blood pressure Measles Mumps Scarlet fever Irritable bowel syndrome Hypertension Osteoporosis cervical cancer R lower lung ground-glass opacities Non anemic Vitamin B12 deficiency Surgical History Surgery Date(Month/Year) lumpectomy 08/18/07
--- OUTSIDE RECORDS SUMMARY | 2025-07-25 07:47 | XMS_ITS | Clinical Summary ---
Author Organization [facility] Address [address] [place] [address] Care Team Providers Care Senior Accounting Associate Name Role Phone Delores Aguilar MD Primary Care Provider [phone] Allergies Active Allergy Reactions Criticality Noted Date [...] age to complete this topic Insurance Medicare [place] [id number] Medicare [facility] 66 Care Teams Senior Accounting Associate Relationship Specialty Start Date End Date Delores Aguilar MD 1962 [place] [address] PCP - General Internal Medicine 04/08/22
[2025-07-25] MEDS: Lidocaine HCl 1 % MPF 5 ML VIAL 9 ML SUBCUT (09:23)
== END 2025-07-25 07:40 | disposition home or self-care (01) ==
LOC: HO.MAMMO 07:39
PROVIDERS: Pathology Anatomic Pathology & Clinical Pathology; PCP Internal Medicine; Visit Provider Surgery
DX: N63.22 Unspecified lump in the left breast, upper inner quadrant (principal); Z85.3 Personal history of malignant neoplasm of breast; Z90.12 Acquired absence of left breast and nipple
CPT/HCPCS: 19083; 77062; 77065; 88305; 88341; 88342; 88360; 88374; A4648; J2003

== ENCOUNTER → 2025-07-25 08:00 | Outpatient (BNV) | payer MEDICARE, OTHER, SELFPAY | PROVIDERS: PCP Internal Medicine; Visit Provider Radiology Body Imaging | DX: N63.22 Unspecified lump in the left breast, upper inner quadrant (principal) | CPT/HCPCS: 19083; 77065 ==

== ENCOUNTER 2025-10-23 08:09 | Outpatient (REF) | payer MEDICARE, OTHER, SELFPAY ==
--- OUTSIDE RECORDS SUMMARY | 2025-10-23 08:18 | XMS_ITS | Clinical Summary ---
Author Organization [facility] Facility Address [address] [place] [id number] Care Team Providers Care Loss Prevention Specialist Name Role Phone Delores Aguilar MD Primary [...] age to complete this topic Insurance Medicare [place] [id number] Medicare [facility] 66 Care Teams Loss Prevention Specialist Relationship Specialty Start Date End Date Delores Aguilar MD [address] [place] [address] PCP - General Internal Medicine 04/08/22
--- OUTSIDE RECORDS SUMMARY | 2025-10-23 08:18 | XMS_ITS | Patient Health Record ---
Author Organization [facility] Address [address] [place] [address] Care Team Providers Care Sharepoint Analyst Name Role Phone Delores Aguilar MD Primary Care Provider Gaurav Burris Unavailable [phone] Allergies Allergen (clinical drug ingredient) Drug/Non Drug [...] [employer] [address] [place] [address] [id number] Kalpana Burden Self - patient is the insured [address] [employer] and Insurance [address] [place] [address] [phone] [id number] Kalpana Burden Self - patient is the insured Medical (General) History Medical History History ICD Code Arthritis Cancer Chicken pox Cataracts Diabetes (Gestational) Glaucoma High blood pressure Measles Mumps Scarlet fever Irritable bowel syndrome Hypertension Osteoporosis cervical cancer R lower lung ground-glass opacities Non anemic Vitamin B12 deficiency Surgical History Surgery Date(Month/Year) lumpectomy 08/18/07
[2025-10-23 10:19] LABS: Appearance Urine Clear; Glucose Urine UA Negative (Negative); PH 6.0 (5.0-9.0); Specific Gravity - Urine 1.010 (1.005-1.025); UMIC TRIGGER UA YES
[2025-10-23 10:58] LABS: Anion Gap 8 (12-20); Blood Urea Nitrogen 18 mg/dL (9-16); Calcium 8.7 mg/dL (8.4-10.2); Carbon Dioxide 28 mmol/L (22-29); Chloride 108 mmol/L (96-108); Estimated Glomerular Filt Rate 41; Potassium 3.9 mmol/L (3.3-5.1); Sodium 140 mmol/L (135-145)
[2025-10-23 11:05] LABS: Total Protein Urine Random < 7 mg/dL (<12)
[2025-10-23 11:11] LABS: Parathyroid Hormone Intact 88.1 pg/mL (8.7-77.1)
== END 2025-10-23 08:10 | disposition home or self-care (01) ==
LOC: HO.HMGCLDS 08:09
PROVIDERS: PCP Internal Medicine; Visit Provider Internal Medicine Hypertension Specialist
DX: I12.9 Hypertensive chronic kidney disease with stage 1 through stage 4 chronic kidney disease, or unspecified chronic kidney disease (principal); N18.30 Chronic kidney disease, stage 3 unspecified
CPT/HCPCS: 36415; 80048; 81001; 82570; 83970; 84156

== ENCOUNTER 2025-10-25 09:29 | Outpatient (AMB) | payer MEDICARE, OTHER, SELFPAY ==
[2025-10-25 09:34] VITALS: BP 138/74; PULSE 93; O2SAT 96; BMI 22.8
--- NOTE | 2025-10-25 09:34 | HO.NEPHOV_ITS ---
Vital Signs 10/25/25 09:34 Height 5 ft 4 in Weight 133 lb BMI 22.8 BP 138/74 Blood Pressure Location Rt brachial Position Sitting Pulse 93 Pulse Source Pulse Oximeter Pulse Oximetry (%) 96 Oxygen Delivery Method Room Air Intake Visit Reasons: 3mnth Outside Upholsterer Required: No Accompanied by: Self / Same As Patient Allergies timolol (TIMOLOL) Allergy (Intermediate, Verified 10/25/25 09:36) HAND AND FEET TINGLING, red itchy eyes brimonidine (From ALPHAGAN P) Allergy (Mild, Verified 10/25/25 09:36) REDNESS AND DRYNESS brinzolamide (From AZOPT) Allergy (Mild, Verified 10/25/25 09:36) REDNESS AND DRYNESS dorzolamide (From COSOPT) Allergy (Mild, Verified 10/25/25 09:36) REDNESS AND DRYNESS latanoprost (From XALATAN) Allergy (Mild, Verified 10/25/25 09:36) REDNESS AND DRYNESS paroxetine Allergy (Unknown, Verified 10/25/25 09:36) sweating lisinopril Allergy (Verified 10/25/25 09:36) Cough Medication List - Last Reconciled 10/25/25 by Krishna Castillo MD losartan 50 mg PO DAILY HPI Comments Details: The patient is a 69-year-old female presenting for management of stage 3 chronic kidney disease The patient has been diagnosed with stage 3 chronic kidney disease, with a recent glomerular filtration rate (GFR) of 42 mL/min/1.73 m?. A recent ultrasound showed multiple small cysts on both kidneys, but no significant abnormalities were noted. A 24-hour urine test was negative for significant proteinuria or hematuria. The patient has a history of glaucoma affecting both eyes and is under regular ophthalmologic care. She also has a history of breast cancer diagnosed in 2006, with a recent concern of a new lump pending evaluation. The patient has a long-standing history of hypertension, managed with losartan after switching from lisinopril due to a persistent cough. Her blood pressure has been generally well-controlled, with home readings ranging from 115/95 mmHg to 112/60 mmHg. She denies any urinary symptoms, swelling in the legs, or respiratory issues. A recent pulmonary function test was normal, ruling out previously suspected COPD. The patient has a history of seborrheic keratosis, with a lesion on her face treated with liquid nitrogen, though it persists. 10/25/25 The patient is a 70 year old individual presenting for a follow-up visit for chronic kidney disease. Kidney function has been stable at approximately 41-42% for the last four to five years, and recent blood work confirms these levels are holding steady. A recent urine test was negative for protein but did show a trace amount of blood, which is an intermittent finding for the patient. The pa tient denies any difficulty with urination or leg swelling. The patient was recently diagnosed with invasive breast cancer after finding a lump and underwent a mastectomy on October 03. The patient has commenced follow-up with an oncologist and will be treated with an oral medication for five years, but will not undergo chemotherapy or radiation. Post-surgically, the patient has had a decreased fluid intake due to an inability to lift objects to refill water. The patient is on losartan for hypertension and reports that blood pressure fluctuates, with systolic values sometimes reaching 141-142 mmHg, while diastolic values typically remain in the 70s. PENDING SALE TO [facility] Medical History Left breast mass Left breast mass (~07/18/25) Hyperlipidemia Interstitial lung disease Rib pain on right side Pain in left hip Knee pain, right Microscopic hematuria Annual physical exam Vitamin B 12 deficiency Vitamin D deficiency Lightheadedness Bilateral carotid bruits Cataract CKD (chronic kidney disease), stage III Breast CA Osteoporosis IBS (irritable bowel syndrome) HTN (hypertension) Surgical History H/O colonoscopy S/P lumpectomy of breast Family History Father Glaucoma HTN (hypertension) Mother HTN (hypertension) Dementia Diabetes mellitus Sister No problems noted. Sister No problems noted. Son No problems noted. Daughter No problems noted. Social History Housing: House Alcohol intake: current Alcohol intake frequency: holidays/special occasions only Patient Tobacco Use Status: Never used Tobacco Second Hand Smoke Exposure: Yes Current occupational status: retired Cognitive needs: No Hearing needs: No Vision needs: Yes Physical Exam Vital Signs: Last Vital Signs Pulse 93 10/25/25 09:34 BP 138/74 10/25/25 09:34 Pulse Ox 96 10/25/25 09:34 Oxygen Delivery Method Room Air 10/25/25 09:34 BMI result Body Mass Index 22.8 Results Reviewed Nephrology Results: Sodium, (135-145) 140 mmol/L 10/23/25 Potassium, (3.3-5.1) 3.9 mmol/L 10/23/25 Chloride, (96-108) 108 mmol/L 10/23/25 Carbon Dioxide, (22-29) 28 mmol/L 10/23/25 BUN, (9-16) 18 mg/dL H 10/23/25 Creatinine, (0.5-1.4) 1.28 mg/dL 10/23/25 Calcium, (8.4-10.2) 8.7 mg/dL 10/23/25 PTH Intact, (8.7-77.1) 88.1 pg/mL H 10/23/25 Urine Protein, (Neg-Trace) Negative mg/dL 10/23/25 Urine Creatinine 73.93 mg/dL 10/23/25 Renal US 06/16/25 Assessment & Plan Assessment & Plan (1) HTN (hypertension): Code(s): I10 - Essential (primary) hypertension Category: Medical (2) CKD (chronic kidney disease), stage III: Comment: US 09/2023 right kidney increase echogenicity, speckled calcification and nephrolithiasis unchanged from 2020, L kidney normal Code(s): N18.30 - Chronic kidney disease, stage 3 unspecified Category: Medical (3) Renal cyst: Code(s): N28.1 - Cyst of kidney, acquired Category: Medical Plan 70 yr old woman with Stable CKD most likely due to hypertensive nephrosclerosis Urine is benign. No protein or blood. AGN/AIN seem unlikely Sonogram- NO obstruction Creatinine has been stable around 1.25 for the past 3 years. BP well controlled. No evidence of anemia Plan; Keep Losartan Maintain BP < 130/80 Avoid nephrotoxins includings NSAIDS Increase PO fluid intake Follow renal function Q 3- 6 months Answered all her questions and reassured Orders: Orders Basic Metabolic Panel 6 Months I10 - Essential (primary) hypertension, N18.30 - Chronic kidney disease, stage 3 unspecified Complete Blood Count no Diff 6 Months I10 - Essential (primary) hypertension, N18.30 - Chronic kidney disease, stage 3 unspecified UA and rflx microscopic 6 Months I10 - Essential (primary) hypertension, N18.30 - Chronic kidney disease, stage 3 unspecified Coding Level of Care Code Est Pt Level 4 (59111) Diagnoses HTN (hypertension) I10 CKD (chronic kidney disease), stage III N18.30 Renal cyst N28.1
== END 2025-10-25 09:48 | disposition home or self-care (01) ==
LOC: HO.HKAS 09:30
PROVIDERS: PCP Internal Medicine; Visit Provider Internal Medicine Hypertension Specialist
DX: I10 Essential (primary) hypertension (principal); N18.30 Chronic kidney disease, stage 3 unspecified; N28.1 Cyst of kidney, acquired
CPT/HCPCS: 99214

== ENCOUNTER → 2025-10-25 09:29 | Outpatient (BNVA) | payer MEDICARE, OTHER, SELFPAY | PROVIDERS: PCP Internal Medicine; Visit Provider Internal Medicine Hypertension Specialist | DX: I12.9 Hypertensive chronic kidney disease with stage 1 through stage 4 chronic kidney disease, or unspecified chronic kidney disease (principal); N18.32 Chronic kidney disease, stage 3b; N28.1 Cyst of kidney, acquired; Z85.3 Personal history of malignant neoplasm of breast | CPT/HCPCS: 99212 ==